=== PATIENT | female | born 1950 | race Caucasian/White ===

== ENCOUNTER → 2016-06-16 | Outpatient (CLI) | payer BC, MEDICARE ==
[2016-06-16 13:26] LABS: Basophils % (A) 1 %; CH 31.8; CHCM 33.2; Eosinophils # (A) 0.1 k/uL (0-0.7); Eosinophils % (A) 1 %; HCT 42.2 % (34.0-46.0); HDW 2.38; HGB 14.2 gm/dL (11.4-16.0); Luc # (Auto) 0.09; Luc % (Auto) 2; Lymphocytes # (A) 1.4 k/uL (1.0-4.8); Lymphocytes % (A) 27 %; MCH 32.3 pg (25.0-35.0); MCHC 33.6 g/dL (31.0-37.0); MCV 96.1 fL (80.0-100.0); Mean Platelet Volume 6.6; Monocytes # (A) 0.3 k/uL (0-1.0); Monocytes % (A) 6 %; Neutrophils # (A) 3.1 k/uL (1.3-7.7); Neutrophils % (A) 62 %; RBC 4.38 m/uL (3.80-5.40); RDW 12.9 % (11.5-15.5); WBC (Perox) 5.09
[2016-06-16 13:47] LABS: ALT 14 U/L (9-52); AST 19 U/L (14-36); Alkaline Phosphatase 75 U/L (38-126); Anion Gap 10 mmol/L; Blood Urea Nitrogen 6 mg/dL (7-17); Calcium 9.6 mg/dL (8.4-10.2); Carbon Dioxide 30 mmol/L (22-30); Chloride 97 mmol/L (98-107); Glucose 88 mg/dL (74-99); Non-African American GFR(MDRD) >60 (>60 ml/min/1.73 sqM); Potassium 4.9 mmol/L (3.5-5.1); Sodium 137 mmol/L (137-145); Total Bilirubin 0.7 mg/dL (0.2-1.3)
== END | disposition home or self-care (01) ==
LOC: LABWHC1 12:55
PROVIDERS: ATTEND Family Medicine
DX: G40.802 Other epilepsy, not intractable, without status epilepticus (principal); Z51.81 Encounter for therapeutic drug level monitoring
CPT/HCPCS: 36415; 80053; 85025

== ENCOUNTER → 2017-06-07 | Outpatient (CLI) | payer BC, MEDICARE ==
[2017-06-07 10:53] LABS: Basophils # (A) 0.1 k/uL (0-0.2); Basophils % (A) 1 %; Eosinophils # (A) 0.1 k/uL (0-0.7); Eosinophils % (A) 2 %; HCT 42.2 % (34.0-46.0); Lymphocytes # (A) 1.2 k/uL (1.0-4.8); Lymphocytes % (A) 25 %; MCH 30.4 pg (25.0-35.0); MCHC 33.2 g/dL (31.0-37.0); MCV 91.5 fL (80.0-100.0); Mean Platelet Volume 6.8; Monocytes # (A) 0.3 k/uL (0-1.0); Monocytes % (A) 7 %; Neutrophils # (A) 3.1 k/uL (1.3-7.7); Neutrophils % (A) 62 %; Platelet Count 364 k/uL (150-450); RBC 4.62 m/uL (3.80-5.40); RDW 12.9 % (11.5-15.5)
[2017-06-07 11:15] LABS: Albumin 4.7 g/dL (3.5-5.0); Calcium 10.1 mg/dL (8.4-10.2); Potassium 4.8 mmol/L (3.5-5.1); Total Bilirubin 0.7 mg/dL (0.2-1.3); Total Protein 8.2 g/dL (6.3-8.2)
[2017-06-07 16:48] LABS: Vitamin D 25 Hydroxy 16.3 ng/mL (30.0-100.0)
[2017-06-07 19:02] LABS: Hepatitis C IgG Antibody Non-Reactive (Non-Reactive)
== END | disposition home or self-care (01) ==
LOC: LABWHC1 10:02
PROVIDERS: ATTEND Family Medicine
DX: Z00.00 Encounter for general adult medical examination without abnormal findings (principal); E78.2 Mixed hyperlipidemia; I69.159 Hemiplegia and hemiparesis following nontraumatic intracerebral hemorrhage affecting unspecified side; Z68.27 Body mass index [BMI] 27.0-27.9, adult
CPT/HCPCS: 36415; 80053; 80061; 82306; 84443; 85025; 86803

== ENCOUNTER → 2017-07-03 | Outpatient (CLI) | payer BC, MEDICARE ==
--- NOTE | 2017-07-03 08:56 | BD ---
EXAMINATION TYPE: MG DEXA axial skeleton. DATE OF EXAM: 07/03/2017 COMPARISON: CLINICAL HISTORY: screening, post menopausal female. Height: 5'2 Weight: 148 FRAX RISK QUESTIONS: Alcohol (3 or more units per day): no Family History (Parent hip fracture): no Glucocorticoids (More than 3mos): no (Ex: prednisone, prednisolone, methylprednisolone, dexamethasone, and hydrocortisone). History of Fracture in Adulthood: yes Secondary Osteoporosis: 1. Type 1 Diabetes: no 2. Hyperthyroidism: no 3. Menopause before 45: yes 4. Malnutrition: no 5. Chronic liver disease: no Rheumatoid Arthritis: no Current Tobacco Use: RISK FACTORS HISTORY OF: Active: y Diet low in dairy products/other sources of calcium: y Postmenopausal woman: y Frequent falls: y Poor Health: y MEDICATIONS: Additional Medications: seizures, anxiety, psychotic Additional History: EXAM MEASUREMENTS: Bone mineral densitometry was performed using the [employer] System. Bone mineral density as measured about the Lumbar spine is: ----- L1-L4(G/cm2): 0.958 T Score Values are as follows: ----- L2: -2.3 ----- L3: -2.2 ----- L4: -1.7 ----- L1-L4: -1.9 Bone mineral density about the R hip (g/cm2): 0.633 Bone mineral density about the L hip (g/cm2): 0.637 T Score values are as follows: -----R Neck: -2.9 -----L Neck: -2.9 -----R Total: -3.3 -----L Total: -2.7 IMPRESSION: Osteoporosis (T Score less than -2.5) at femoral neck level in both hips. There is increased fracture risk and therapy is usually indicated based on age. Re-Screen 1-2 years. NOTE: T-SCORE=SD OF THE YOUNG ADULT MEAN.
--- NOTE | 2017-07-04 08:58 | MM ---
Reason for exam: screening (asymptomatic). Last mammogram was performed 5 years and 10 months ago. History: Family history of breast cancer in mother. Physical Findings: A clinical breast exam by your physician is recommended on an annual basis and results should be correlated with mammographic findings. MG 3D Screening Mammo W/Cad Bilateral CC and MLO view(s) were taken. XCCL view(s) were taken of the left breast. Prior study comparison: September 01, 2011, bilateral digital screening mammo w/CAD. December 16, 1999, bilateral screening mammogram. The breast tissue is heterogeneously dense. This may lower the sensitivity of mammography. Left sided pacemaker generator. Stable bilateral global asymmetries. No significant changes when compared with prior studies. ASSESSMENT: Negative, BI-RAD 1 RECOMMENDATION: Routine screening mammogram of both breasts in 1 year.
== END | disposition home or self-care (01) ==
LOC: RADMAMWWP 07:00
PROVIDERS: ATTEND Family Medicine
DX: Z12.31 Encounter for screening mammogram for malignant neoplasm of breast (principal); M81.0 Age-related osteoporosis without current pathological fracture
CPT/HCPCS: 77063; 77067; 77080

== ENCOUNTER 2018-11-12 23:59 | Emergency (ER) | payer BC, MEDICARE ==
[2018-11-13 00:07] VITALS: TEMP 97.9
[2018-11-13] MEDS ORDERED: MORPHINE SULFATE 4 MG/ML SYRINGE IV STA (00:20)
[2018-11-13] MEDS ORDERED: ETOMIDATE 2 MG/ML 10 ML VIAL IVP STA (01:03)
--- NOTE | 2018-11-13 01:14 | XR ---
EXAM: XR Right Shoulder Complete, 2 or More Views CLINICAL HISTORY: ITS.REASON XR Reason: fall TECHNIQUE: Two or more views of the right shoulder. COMPARISON: No relevant prior studies available. FINDINGS: Bones/joints: Anterior dislocation of the humeral head in relation to the glenoid. Comminution along the posterior aspect of the glenoid with subcentimeter avulsion fracture fragments noted. Soft tissues: No radiopaque foreign body. IMPRESSION: 1. Anterior dislocation of the humeral head in relation to the glenoid. 2. Comminution along the posterior aspect of the glenoid with subcentimeter avulsion fracture fragments noted. The donor site is not clearly evident on this exam.
--- NOTE | 2018-11-13 01:41 | CT ---
EXAM: CT Head Without Intravenous Contrast CLINICAL HISTORY: ITS.REASON CT Reason: fall TECHNIQUE: Axial computed tomography images of the head/brain without intravenous contrast. DLP is 1420.9 mGy-cm. This CT exam was performed using one or more of the following dose reduction techniques: automated exposure control, adjustment of the mA and/or kV according to patient size, and/or use of iterative reconstruction technique. COMPARISON: 09/22/2009 FINDINGS: Brain: Cerebral atrophy is fairly similar in appearance to the previous exam. No hemorrhage. No significant white matter disease. Ventricles: Unremarkable. No ventriculomegaly. Bones/joints: There is evidence of a left temporal craniotomy. There are stable claudia hole's involving the left temporoparietal region. No evidence for skull fracture. Soft tissues: No significant overlying soft tissue abnormality identified. Sinuses: Unremarkable as visualized. No acute sinusitis. Mastoid air cells: Unremarkable as visualized. No mastoid effusion. IMPRESSION: No acute intracranial process identified. No significant interval change from the previous examination.. EXAM: CT Cervical Spine Without Intravenous Contrast CLINICAL HISTORY: ITS.REASON CT Reason: fall TECHNIQUE: Axial computed tomography images of the cervical spine without intravenous contrast. DLP is 1420.9 mGy-cm. This CT exam was performed using one or more of the following dose reduction techniques: automated exposure control, adjustment of the mA and/or kV according to patient size, and/or use of iterative reconstruction technique. COMPARISON: 09/22/2009 FINDINGS: Limitations: There is beam hardening artifact from dental hardware involving the superior to the cervical region. Vertebrae: There are stable hypertrophic changes with disc spondylosis and marginal spurring at multiple levels. Facet hypertrophic changes are noted. No acute fracture. Discs/spinal canal/neural foramina: No acute findings. No spinal canal stenosis. Soft tissues: Unremarkable. Lung apices: Visualized lung apices demonstrate no evidence for significant acute traumatic abnormality with paraseptal emphysematous changes identified. Tubes, lines and devices: A stimulator lead is noted in the left carotid region with the lead extending inferiorly to the left anterior chest region. This is similar to the previous exam. IMPRESSION: No acute osseous traumatic injury or significant abnormal alignment identified. Underlying multilevel degenerative changes are incidentally noted.
--- NOTE | 2018-11-13 03:15 | ED ---
Fall HPI - General Chief Complaint: Fall Stated Complaint: fall,R arm pain Time Seen by Provider: 11/13/18 00:04 Source: patient, EMS Mode of arrival: EMS - History of Present Illness Initial Comments: This patient is a 68-year-old woman who presents after she had a fall. The patient states she was trying to walk when she tripped over her feet and fell landing on her right arm as well as the right side of her neck and head. Complains of severe right shoulder pain and also having a little bit of aching headache and neck pain. The patient denies any weakness or numbness of the extremity. She states that it does hurt too bad to attempt to move however. No loss of consciousness. MD Complaint: fall Onset/Timin -: hour(s) Fall From: standing When Fall Occurred: [address] Fall Occurred: home Loss of Consciousness: none Prolonged Down Time?: no Symptoms Prior to Fall: none Location: head, neck Location - Extremities: Right: Shoulder Severity: severe Quality: aching Context: tripped/slipped - Related Data Home Medications Medication Instructions Recorded Confirmed Citalopram Hydrobromide [CeleXA] 20 mg PO QAM 03/21/15 02/02/16 Docusate [Colace] 100 mg PO BID 03/21/15 02/01/16 LORazepam [Ativan] 1 mg PO BID PRN 03/21/15 02/02/16 Ziprasidone [Geodon] 60 mg PO QAM 03/21/15 02/02/16 Ziprasidone [Geodon] 80 mg PO HS 03/21/15 02/01/16 Atorvastatin [Lipitor] 20 mg PO QAM 11/16/15 02/02/16 Acetaminophen [Tylenol Arthritis] 1,300 mg PO DIRECTED PRN 02/01/16 02/02/16 Carbidopa-Levodopa 25-100 mg 2 tab PO TID 02/01/16 02/01/16 [Sinemet 25-100] Clobazam [Onfi] 20 mg PO BID 02/01/16 02/01/16 Ibuprofen [Motrin] 600 mg PO DIRECTED PRN 02/01/16 02/02/16 lamoTRIgine [LaMICtal] 200 mg PO QAM 02/01/16 02/01/16 lamoTRIgine [LaMICtal] 300 mg PO HS 02/01/16 02/02/16 levETIRAcetam [Keppra Xr] 2,000 mg PO HS 02/01/16 02/01/16 Previous Rx's Medication Instructions Recorded Acetaminophen-Codeine 300-30mg 1 tab PO Q6H PRN #40 tablet 02/03/16 [Tylenol #3] Aspirin 325 mg PO DAILY #30 tab 02/03/16 HYDROcodone/APAP 5-325MG [[place] 1 tab PO Q6HR PRN #15 tab 01/06/17 5-325] Allergies Allergy/AdvReac Type Severity Reaction Status Date / Time No Known Allergies Allergy Verified 01/06/17 19:19 Review of Systems ROS Statement: Those systems with pertinent positive or pertinent negative responses have been documented in the HPI. ROS Other: All systems not noted in ROS Statement are negative. Constitutional: Denies: fever, chills, weakness Eyes: Denies: eye pain, vision change ENT: Denies: ear pain, epistaxis Respiratory: Denies: cough, dyspnea Cardiovascular: Denies: chest pain, palpitations, syncope Gastrointestinal: Denies: abdominal pain, vomiting Musculoskeletal: Reports: arthralgia (Right shoulder). 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 HX OF SEIZURES WITH FALLS . , LAST SEIZURE 01/25/16 WITH FALL AND LEFT ANKLE FX., WEARING A BOOT LEFT FOOT. , USES WALKER WITH WHEELS, STATES LEFT LEG BRUISED. , WEAKNESS LEFT SIDE. , STATES OCCASIONALLY NEEDS TO YAWN TO CATCH HER BREATH ., STATES NO MRI'S DUE TO VAGUS NERVE STIMULATOR IMPLANT. History of Any Multi-Drug Resistant Organisms: None Reported Additional Past Surgical History / Comment(s): VAGUS NERVE STIMULATOR LEFT CHEST (BATTERY ), LEFT HIPPOCAMPUS REMOVED. Past Anesthesia/Blood Transfusion Reactions: No Reported Reaction Additional Past Anesthesia/Blood Transfusion Reaction / Comment(s): HX OF BLOOD TRANSFUSION - NO REACTION Past Psychological History: Anxiety, Depression, Schizoaffective Disorder Smoking Status: Former smoker Past Alcohol Use History: None Reported Past Drug Use History: None Reported - Past Family History Mother Family Medical History: Cancer Father Family Medical History: Cancer General Exam Limitations: no limitations General appearance: alert, in no apparent distress Head exam: Present: atraumatic, normocephalic Eye exam: Present: normal appearance. Absent: scleral icterus, conjunctival injection ENT exam: Present: normal oropharynx Neck exam: Present: normal inspection, tenderness (Right paraspinal muscles), other (Cervical collar) Respiratory exam: Present: normal lung sounds bilaterally. Absent: respiratory distress, wheezes, rales, rhonchi, stridor, chest wall tenderness Cardiovascular Exam: Present: regular rate, normal rhythm, normal heart sounds. Absent: systolic murmur, diastolic murmur, rubs, gallop GI/Abdominal exam: Present: soft. Absent: distended, tenderness, guarding, rebound, rigid, mass Extremities exam: Present: tenderness, normal capillary refill, other (Patient has apparent right shoulder dislocation. No obvious bony deformity. She is not able to tolerate range of motion exam of the right shoulder. The remainder of the right arm appears without bony injury.). Absent: full ROM Right Shoulder Exam: Present: tenderness, dislocation. Absent: full ROM, abrasion, deformity, erythema, tenderness over AC joint Upper Arm exam: Present: normal inspection Elbow exam: Present: normal inspection, full ROM. Absent: tenderness, swelling, abrasion, laceration, ecchymosis, deformity, crepitus, dislocation Forearm Wrist exam: Present: normal inspection, full ROM. Absent: tenderness, swelling, abrasion, laceration, ecchymosis, deformity, crepitus, dislocation Hand Wrist exam: Present: normal inspection, full ROM. Absent: tenderness, swelling, abrasion, laceration, ecchymosis, deformity, crepitus, dislocation Neuro motor exam: Present: wrist extension intact, thumb opposition intact Vascular: Present: normal capillary refill. Absent: vascular compromise Back exam: Present: normal inspection. Absent: CVA tenderness (R), CVA tenderness (L) Neurological exam: Present: alert. Absent: motor sensory deficit Skin exam: Present: warm, dry, intact, normal color. 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: Identity, Site, Procedure, Consent Site: R shoulder Site Marked: Yes Site Verified With Patient/Guardian: Yes Final Confirmation: Procedure, Site, Radiographs, Confirmed w/Provider - Orthopedic Joint Reduction Joint #1 Consent Obtained: written consent Side: right Joint Reduction Location: shoulder Analgesia: procedural sedation Shoulder Technique Used (if applicable): external rotation Post-Reduction Neuro Exam: intact Post-Reduction Vascular Exam: intact Post Reduction X-Ray Obtained: Yes Post Reduction X-Ray Results: reduced Patient Tolerated Procedure: well - Procedural Sedation Indications: fracture/dislocation reduction ASA Class: II Mallampati Airway Score: 2 Preparation: panel monitor applied, pulse oximeter, capnometry used, supplemental O2 applied, suction/airway equipment at bedside, IV secured IV Etomidate Dose (mgs): 10 Complications: none Patient Tolerated Procedure: well, no complications Disposition Clinical Impression: Fall, Shoulder dislocation Disposition: HOME SELF-CARE Condition: Good Instructions (If sedation given, give patient instructions): Shoulder Dislocation (ED), Fall Prevention for Older Adults (ED), Moderate Sedation (ED) Is patient prescribed a controlled substance at d/c from ED?: No Referrals: Javier Looney MD [Primary Care Provider] - 1-2 days Andrew Coppola MD [STAFF PHYSICIAN] - 1-2 days
[2018-11-13 03:18] VITALS: BP 147/76; PULSE 96; RESP 16
--- NOTE | 2018-11-13 03:39 | XR ---
EXAM: XR Right Shoulder, 1 View CLINICAL HISTORY: ITS.REASON XR Reason: postreduction TECHNIQUE: One view of the right shoulder. COMPARISON: 00:53 hours FINDINGS: Limitations: Single projection image demonstrates interval reduction in the frontal projection. There is a suggestion of cortical defect involving the greater tubercle. Detailed evaluation is limited. Bones/joints: Unremarkable. No acute fracture. No dislocation. Soft tissues: Unremarkable. IMPRESSION: Single projection image demonstrates interval right shoulder reduction in the frontal projection.
== END 2018-11-13 03:30 | disposition home or self-care (01) ==
LOC: EC 23:59
DX: S43.004A Unspecified dislocation of right shoulder joint, initial encounter (principal); M54.2 Cervicalgia; R51 Headache; G40.909 Epilepsy, unspecified, not intractable, without status epilepticus; F32.9 Major depressive disorder, single episode, unspecified; F41.9 Anxiety disorder, unspecified; F25.9 Schizoaffective disorder, unspecified; Z87.891 Personal history of nicotine dependence; Z79.899 Other long term (current) drug therapy; Z97.8 Presence of other specified devices; W01.0XXA Fall on same level from slipping, tripping and stumbling without subsequent striking against object, initial encounter; Y93.89 Activity, other specified; Y92.009 Unspecified place in unspecified non-institutional (private) residence as the place of occurrence of the external cause
CPT/HCPCS: 73020; 72125; 70450; 99284; 23650; 96374; J2270

== ENCOUNTER 2018-11-21 19:28 | Emergency (ER) | payer BC, MEDICARE ==
[2018-11-21 19:35] VITALS: TEMP 98.3
[2018-11-21] MEDS ORDERED: fentaNYL (PF) 50 MCG/ML 2 ML AMP IVP STA (20:47)
--- NOTE | 2018-11-21 20:59 | ED ---
General Adult HPI - General Chief complaint: Extremity Injury, Upper Stated complaint: Dislocated shoulder Time Seen by Provider: 11/21/18 20:11 Source: patient Mode of arrival: wheelchair Limitations: physical limitation - History of Present Illness Initial comments: Dictation was produced using [employer] dictation software. please excuse any grammatical, word or spelling errors. Chief Complaint: 68-year-old female past medical history of seizure disorder and right shoulder dislocations presents with right shoulder pain and seizure. History of Present Illness: Patient is 68-year-old female she has multiple comorbidities. She is a history of seizure disorder. She has a neurologist at [facility] she is on seizure medications. Patient states she reached over she felt like she was given have a seizure. She then woke up with significant right shoulder pain. Patient dislocated this shoulder in the past. Patient is here with a family member. En route to our emergency department patient had another observed seizure. Patient is compliant with her medications. Family members concerned the patient hit her head. The ROS documented in this emergency department record has been reviewed and confirmed by me. Those systems with pertinent positive or negative responses have been documented in the HPI. All other systems are other negative and/or noncontributory. PHYSICAL EXAM: General Impression: Alert and oriented x3, acute distress secondary to pain HEENT: Normocephalic atraumatic, extra-ocular movements intact, pupils equal and reactive to light bilaterally, mucous membranes moist. Cardiovascular: Heart regular rate and rhythm, S1&S2 audible, no murmurs, rubs or gallops Chest: Lungs clear to auscultation bilaterally, no rhonchi, no wheeze, no rales Abdomen: Bowel sounds present, abdomen soft, non-tender, non-distended, no organomegaly Musculoskeletal: Pulses present and equal in all extremities, no peripheral edema, gross deformity to the right shoulder Motor: no focal deficits noted Neurological: CN II-XII grossly intact, no focal motor or sensory deficits noted Skin: Intact with no visualized rashes ED course: 68-year-old female with concern of right shoulder dislocation and seizure. Vital signs upon arrival are within acceptable limits.Laboratory evaluation obtained. Laboratory evaluation is unremarkable. Patient does have lactic acidosis of 3.7. Patient has history of seizures. She has close relationship with a neurologist from [address] She had recent medication adjustments. Shoulder x-ray was obtained showing anterior shoulder dislocation. Procedural sedation was used and shoulder was reduced to anatomic position. Patient was complaining of wrist pain. Wrist x-ray showed old injury. Her wrist was immobilized in a sling. C-spine CT and head CT were unremarkable. Patient observed in emergency department given fluids. Patient did not have any recurrent seizures. Patient's family member will contact neurologist first thing in the morning to have medications adjusted. Patient given IV analgesics. Patient's also given a starter pack. Family feels consult while taking patient home. Patient placed in a sling. EKG interpretation: Ventricular rate 82, sinus rhythm,. Interval 142, care 74, QTc 457. No GA prolongation, no QTC prolongation, no ST or T-wave changes noted. Overall, this EKG is unremarkable - Related Data Home Medications Medication Instructions Recorded Confirmed Citalopram Hydrobromide [CeleXA] 20 mg PO QAM 03/21/15 11/21/18 LORazepam [Ativan] 1 mg PO BID PRN 03/21/15 11/21/18 Ziprasidone [Geodon] 80 mg PO BID 03/21/15 11/21/18 Atorvastatin [Lipitor] 20 mg PO QAM 11/16/15 11/21/18 Carbidopa-Levodopa 25-100 mg 2 tab PO TID 02/01/16 11/21/18 [Sinemet 25-100] Clobazam [Onfi] 20 mg PO HS 02/01/16 11/21/18 lamoTRIgine [LaMICtal] 300 mg PO BID 02/01/16 11/21/18 Alendronate Sodium [Fosamax] 70 mg PO SA 11/21/18 11/21/18 Zonisamide [Zonegran] 200 mg PO HS 11/21/18 11/21/18 Allergies Allergy/AdvReac Type Severity Reaction Status Date / Time No Known Allergies Allergy Verified 11/21/18 20:32 Review of Systems ROS Statement: Those systems with pertinent positive or pertinent negative responses have been documented in the HPI. ROS Other: All systems not noted in ROS Statement are negative. 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 HX OF SEIZURES WITH FALLS . , LAST SEIZURE 01/25/16 WITH FALL AND LEFT ANKLE FX., WEARING A BOOT LEFT FOOT. , USES WALKER WITH WHEELS, STATES LEFT LEG BRUISED. , WEAKNESS LEFT SIDE. , STATES OCCASIONALLY NEEDS TO YAWN TO CATCH HER BREATH ., STATES NO MRI'S DUE TO VAGUS NERVE STIMULATOR IMPLANT. History of Any Multi-Drug Resistant Organisms: None Reported Additional Past Surgical History / Comment(s): VAGUS NERVE STIMULATOR LEFT CHEST (BATTERY ), LEFT HIPPOCAMPUS REMOVED. Past Anesthesia/Blood Transfusion Reactions: No Reported Reaction Additional Past Anesthesia/Blood Transfusion Reaction / Comment(s): HX OF BLOOD TRANSFUSION - NO REACTION Past Psychological History: Anxiety, Depression, Schizoaffective Disorder Smoking Status: Former smoker Past Alcohol Use History: None Reported Past Drug Use History: None Reported - Past Family History Mother Family Medical History: Cancer Father Family Medical History: Cancer General Exam Limitations: physical limitation Course Vital Signs 11/21/18 11/21/18 11/21/18 19:29 21:40 21:45 Temperature 98.3 F Pulse Rate 85 87 83 Respiratory 20 20 16 Rate Blood Pressure 149/87 152/86 142/86 O2 Sat by Pulse 98 98 92 L Oximetry 11/21/18 21:55 Temperature Pulse Rate 78 Respiratory 20 Rate Blood Pressure 153/89 O2 Sat by Pulse 96 Oximetry Medical Decision Making - Lab Data Result diagrams: 11/21/18 21:00 11/21/18 21:00 Lab Results 11/21/18 11/21/18 11/21/18 Range/Units 21:00 21:00 21:00 WBC 7.7 (3.8-10.6) k/uL RBC 4.42 (3.80-5.40) m/uL Hgb 14.2 (11.4-16.0) gm/dL Hct 41.8 (34.0-46.0) % MCV 94.6 (80.0-100.0) fL MCH 32.1 (25.0-35.0) pg MCHC 33.9 (31.0-37.0) g/dL RDW 14.6 (11.5-15.5) % Plt Count 323 (150-450) k/uL Neutrophils % 75 % Lymphocytes % 15 % Monocytes % 6 % Eosinophils % 1 % Basophils % 1 % Neutrophils # 5.7 (1.3-7.7) k/uL Lymphocytes # 1.2 (1.0-4.8) k/uL Monocytes # 0.5 (0-1.0) k/uL Eosinophils # 0.1 (0-0.7) k/uL Basophils # 0.1 (0-0.2) k/uL Sodium 140 (137-145) mmol/L Potassium 4.1 (3.5-5.1) mmol/L Chloride 102 (98-107) mmol/L Carbon Dioxide 24 (22-30) mmol/L Anion Gap 14 mmol/L BUN 13 (7-17) mg/dL Creatinine 0.93 (0.52-1.04) mg/dL Est GFR (CKD-EPI)AfAm 74 (>60 ml/min/1.73 sqM) Est GFR (CKD-EPI)NonAf 64 (>60 ml/min/1.73 sqM) Glucose 130 H (74-99) mg/dL Plasma Lactic Acid Roman 3.7 H* (0.7-2.0) mmol/L Calcium 10.1 (8.4-10.2) mg/dL Magnesium 1.6 (1.6-2.3) mg/dL Total Bilirubin 0.6 (0.2-1.3) mg/dL AST 22 (14-36) U/L ALT 7 L (9-52) U/L Alkaline Phosphatase 87 (38-126) U/L Total Protein 8.2 (6.3-8.2) g/dL Albumin 4.7 (3.5-5.0) g/dL Disposition Clinical Impression: Seizure, Shoulder dislocation Disposition: HOME SELF-CARE Condition: Good Instructions (If sedation given, give patient instructions): Shoulder Dislocation (ED), Recurrent Seizures in Adults (ED) Is patient prescribed a controlled substance at d/c from ED?: Yes If prescribed controlled substance>3 days was MAPS reviewed?: Prescribed <3 Days Referrals: Javier Looney MD [Primary Care Provider] - 1-2 days Time of Disposition: 23:26
[2018-11-21] MEDS ORDERED: PROPOFOL 10 MG/ML 20 ML VIAL IV ONE (21:16)
[2018-11-21 21:19] LABS: Basophils # (A) 0.1 k/uL (0-0.2); Basophils % (A) 1 %; Eosinophils # (A) 0.1 k/uL (0-0.7); Eosinophils % (A) 1 %; HCT 41.8 % (34.0-46.0); HGB 14.2 gm/dL (11.4-16.0); Lymphocytes # (A) 1.2 k/uL (1.0-4.8); Lymphocytes % (A) 15 %; MCH 32.1 pg (25.0-35.0); MCHC 33.9 g/dL (31.0-37.0); MCV 94.6 fL (80.0-100.0); Mean Platelet Volume 7.2; Monocytes # (A) 0.5 k/uL (0-1.0); Monocytes % (A) 6 %; Neutrophils # (A) 5.7 k/uL (1.3-7.7); Neutrophils % (A) 75 %; Platelet Count 323 k/uL (150-450); RBC 4.42 m/uL (3.80-5.40); RDW 14.6 % (11.5-15.5); WBC 7.7 k/uL (3.8-10.6)
[2018-11-21 21:21] LABS: Albumin 4.7 g/dL (3.5-5.0); Calcium 10.1 mg/dL (8.4-10.2); Magnesium 1.6 mg/dL (1.6-2.3); Potassium 4.1 mmol/L (3.5-5.1); Total Bilirubin 0.6 mg/dL (0.2-1.3); Total Protein 8.2 g/dL (6.3-8.2)
--- NOTE | 2018-11-21 21:21 | XR ---
EXAMINATION TYPE: XR shoulder complete RT DATE OF EXAM: 11/21/2018 COMPARISON: 11/13/2018 HISTORY: Pain TECHNIQUE: 3 views FINDINGS: There is anterior dislocation of the humeral head. I see no fracture line. There is some de formity of the humeral head greater tuberosity consistent with recurrent dislocations. IMPRESSION: Anterior dislocation of the humeral head.
--- NOTE | 2018-11-21 22:55 | XR ---
EXAMINATION TYPE: XR shoulder complete RT DATE OF EXAM: 11/21/2018 COMPARISON: Today HISTORY: Post reduction TECHNIQUE: 3 views FINDINGS: There is anatomic reduction of the humeral head. There is some deformity of the greater tub erosity consistent with recurrent dislocation. I see no fracture line. IMPRESSION: Anatomic reduction.
--- NOTE | 2018-11-21 22:56 | XR ---
EXAMINATION TYPE: XR wrist complete RT DATE OF EXAM: 11/21/2018 COMPARISON: NONE HISTORY: Wrist pain TECHNIQUE: 5 views FINDINGS: Radiocarpal joint is anatomic. There is mild deformity of the distal radius consistent with a fracture. I do not see a definite acute fracture line. There is cystic change in the ulnar styloid process consistent with old trauma. The carpal bones appear intact. IMPRESSION: There is evidence of old injury of the distal radius. No definite acute fracture.
--- NOTE | 2018-11-21 23:15 | CT ---
EXAMINATION TYPE: CT brain tevin levin DATE OF EXAM: 11/21/2018 COMPARISON: 11/13/2018 HISTORY: Seizure, fall CT DLP: 1354.10 mGycm Automated exposure control for dose reduction was used. TECHNIQUE: CT scan of the head and cervical spine are performed without contrast. FINDINGS: There is cerebral cortical atrophy. There is no mass effect nor midline shift. There is n o sign of intracranial hemorrhage. Calvarium is intact. 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 There is multilevel spondylotic changes in the cervical spine. There is slight anterior subluxation o f C3 in relation to C4. There is degenerative disc space narrowing from C4 to C7. Facet joints are in tact. Skull base is intact. There is no evidence of a fracture. IMPRESSION: Cerebral atrophy. No acute intracranial abnormality. No change. Spondylotic changes in the cervical spine. No fracture. No change.
[2018-11-21] MEDS ORDERED: MORPHINE SULFATE 2 MG/ML SYRINGE IVP STA (23:23)
[2018-11-21] MEDS ORDERED: traMADol 50 MG STARTER PACK 3 TAB BTL PO STA (23:26)
[2018-11-21 23:54] VITALS: BP 145/76; PULSE 93; RESP 18
--- NOTE | 2018-11-21 23:54 | ED ---
Medical Decision Making - Lab Data Result diagrams: 11/21/18 21:00 11/21/18 21:00 Lab Results 11/21/18 11/21/18 11/21/18 Range/Units 21:00 21:00 21:00 WBC 7.7 (3.8-10.6) k/uL RBC 4.42 (3.80-5.40) m/uL Hgb 14.2 (11.4-16.0) gm/dL Hct 41.8 (34.0-46.0) % MCV 94.6 (80.0-100.0) fL MCH 32.1 (25.0-35.0) pg MCHC 33.9 (31.0-37.0) g/dL RDW 14.6 (11.5-15.5) % Plt Count 323 (150-450) k/uL Neutrophils % 75 % Lymphocytes % 15 % Monocytes % 6 % Eosinophils % 1 % Basophils % 1 % Neutrophils # 5.7 (1.3-7.7) k/uL Lymphocytes # 1.2 (1.0-4.8) k/uL Monocytes # 0.5 (0-1.0) k/uL Eosinophils # 0.1 (0-0.7) k/uL Basophils # 0.1 (0-0.2) k/uL Sodium 140 (137-145) mmol/L Potassium 4.1 (3.5-5.1) mmol/L Chloride 102 (98-107) mmol/L Carbon Dioxide 24 (22-30) mmol/L Anion Gap 14 mmol/L BUN 13 (7-17) mg/dL Creatinine 0.93 (0.52-1.04) mg/dL Est GFR (CKD-EPI)AfAm 74 (>60 ml/min/1.73 sqM) Est GFR (CKD-EPI)NonAf 64 (>60 ml/min/1.73 sqM) Glucose 130 H (74-99) mg/dL Plasma Lactic Acid Roman 3.7 H* (0.7-2.0) mmol/L Calcium 10.1 (8.4-10.2) mg/dL Magnesium 1.6 (1.6-2.3) mg/dL Total Bilirubin 0.6 (0.2-1.3) mg/dL AST 22 (14-36) U/L ALT 7 L (9-52) U/L Alkaline Phosphatase 87 (38-126) U/L Total Protein 8.2 (6.3-8.2) g/dL Albumin 4.7 (3.5-5.0) g/dL Disposition Clinical Impression: Seizure, Shoulder dislocation Disposition: HOME SELF-CARE Condition: Good Instructions (If sedation given, give patient instructions): Shoulder Di slocation (ED), Recurrent Seizures in Adults (ED) Is patient prescribed a controlled substance at d/c from ED?: No Referrals: Javier Looney MD [Primary Care Provider] - 1-2 days Time of Disposition: 23:54 Procedures - [place] Protocol (Time Out) Procedure Performed:: reductrion of right shoulder Performing Provider: Kalin Patterson Nurse: Myra Melissa Respiratory Therapist: Arcelia Thornton Patient Identification (2 identifiers required): Chart, Verbal, Arm Band, Name Patient/Legal Digital Art Director has Confirmed: Identity Site: right shoulder Site Marked: No Site Verified With Patient/Guardian: Yes Final Confirmation: Procedure - Orthopedic Joint Reduction Joint #1 Consent Obtained: verbal consent, written consent Side: right Joint Reduction Location: shoulder Shoulder Technique Used (if applicable): other Post-Reduction Neuro Exam: intact Post-Reduction Vascular Exam: intact Post Reduction X-Ray Obtained: Yes Post Reduction X-Ray Results: reduced Splint Applied: Yes Patient Tolerated Procedure: well - Procedural Sedation Procedural Sedation Start Time: 21:40 Procedural Sedation Stop Time: 21:50 Indications: fracture/dislocation reduction ASA Class: II Mallampati Airway Score: 1 Preparation: parole director applied, pulse oximeter, capnometry used, supplemental O2 applied IV Propofol Dose (mgs): 100 Complications: hypoventilation Interventions: oxygen applied, assist by BVM Patient Tolerated Procedure: well
== END 2018-11-21 23:53 | disposition home or self-care (01) ==
LOC: EC 19:28 → SUPCPDRO 19:28 → EC 23:53
DX: S43.004A Unspecified dislocation of right shoulder joint, initial encounter (principal); S69.91XA Unspecified injury of right wrist, hand and finger(s), initial encounter; G40.909 Epilepsy, unspecified, not intractable, without status epilepticus; F41.9 Anxiety disorder, unspecified; F25.1 Schizoaffective disorder, depressive type; Z87.891 Personal history of nicotine dependence; E87.2 Acidosis; Z79.899 Other long term (current) drug therapy
CPT/HCPCS: 36415; 93005; 80053; 83605; 83735; 85025; 73030; 73110; 72125; 70450; 99284; 23650; 99152; 96374; 96375; J3010; J2270; J2704

== ENCOUNTER 2019-03-30 00:25 | Emergency (ER) | payer BC, MEDICARE ==
[2019-03-30 00:35] VITALS: TEMP 97.9
[2019-03-30] MEDS ORDERED: MORPHINE SULFATE 4 MG/ML SYRINGE IM STA (01:06)
--- NOTE | 2019-03-30 01:38 | XR ---
EXAMINATION TYPE: XR elbow limited RT DATE OF EXAM: 03/30/2019 COMPARISON: NONE HISTORY: Arm pain. Fall. TECHNIQUE: 2 views FINDINGS: Elbow joint spaces appear normal. I see no fracture nor dislocation. There is no sign of catherine int effusion. Exam is limited by overlying artifact. IMPRESSION: Negative limited right elbow exam. No fracture seen.
--- NOTE | 2019-03-30 01:39 | XR ---
EXAMINATION TYPE: XR shoulder limited RT DATE OF EXAM: 03/30/2019 COMPARISON: 11/21/2018 HISTORY: Fall. Injury. TECHNIQUE: 2 views FINDINGS: There is anterior dislocation of the glenohumeral joint. I see no fracture. There is osteop enia. IMPRESSION: Anterior dislocation. No fracture seen.
[2019-03-30] MEDS ORDERED: ETOMIDATE 2 MG/ML 10 ML VIAL IVP STA (02:09)
--- NOTE | 2019-03-30 03:20 | XR ---
EXAMINATION TYPE: XR shoulder limited RT DATE OF EXAM: 03/30/2019 COMPARISON: Today HISTORY: Post reduction TECHNIQUE: Single view FINDINGS: There is anatomic reduction of the glenohumeral joint. I see no fracture. IMPRESSION: Anatomic reduction.
--- NOTE | 2019-03-30 03:24 | ED ---
Upper Extremity HPI - General Source: patient, family Mode of arrival: ambulatory Limitations: no limitations <Carlyn Robert - Last Filed: 03/30/19 03:55> <Dez Barraza - Last Filed: 03/30/19 07:13> - General Chief Complaint: Extremity Injury, Upper Stated Complaint: R Arm/Shoulder Pain Time Seen by Provider: 03/30/19 00:51 - History of Present Illness Initial Comments: 68-year-old female patient with past medical history significant for right shoulder dislocation presents to the emergency department today for evaluation of shoulder pain. Patient started to fall from a chair when her family member went to catch her and injured the arm. She believes it may be dislocated again. He denied her falling, hitting her head, losing consciousness. Patient is reporting pain radiating down the arm and up into her neck. She denies any numbness or tingling to the arms or legs. She denies any other injuries. Patient denies any headache, chest pain, shortness of breath, dizziness, weakness, abdominal pain, nausea, vomiting, or difficulties with bowel movements or urination. (Carlyn Robert) - Related Data Home Medications Medication Instructions Recorded Confirmed Citalopram Hydrobromide [CeleXA] 20 mg PO QAM 03/21/15 11/21/18 LORazepam [Ativan] 1 mg PO BID PRN 03/21/15 11/21/18 Ziprasidone [Geodon] 80 mg PO BID 03/21/15 11/21/18 Atorvastatin [Lipitor] 20 mg PO QAM 11/16/15 11/21/18 Carbidopa-Levodopa 25-100 mg 2 tab PO TID 02/01/16 11/21/18 [Sinemet 25-100] Clobazam [Onfi] 20 mg PO HS 02/01/16 11/21/18 lamoTRIgine [LaMICtal] 300 mg PO BID 02/01/16 11/21/18 Alendronate Sodium [Fosamax] 70 mg PO SA 11/21/18 11/21/18 Zonisamide [Zonegran] 200 mg PO HS 11/21/18 11/21/18 Allergies Allergy/AdvReac Type Severity Reaction Status Date / Time No Known Allergies Allergy Verified 03/30/19 00:36 Review of Systems ROS Other: All systems not noted in ROS Statement are negative. <Carlyn Robert - Last Filed: 03/30/19 03:55> ROS Other: All systems not noted in ROS Statement are negative. <Dez Barraza - Last Filed: 03/30/19 07:13> ROS Statement: Those systems with pertinent positive or pertinent negative responses have been documented in the HPI. 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 HX OF SEIZURES WITH FALLS . , LAST SEIZURE 01/25/16 WITH FALL AND LEFT ANKLE FX., WEARING A BOOT LEFT FOOT. , USES WALKER WITH WHEELS, STATES LEFT LEG BRUISED. , WEAKNESS LEFT SIDE. , STATES OCCASIONALLY NEEDS TO YAWN TO CATCH HER BREATH ., STATES NO MRI'S DUE TO VAGUS NERVE STIMULATOR IMPLANT. History of Any Multi-Drug Resistant Organisms: None Reported Additional Past Surgical History / Comment(s): VAGUS NERVE STIMULATOR LEFT CHEST (BATTERY ), LEFT HIPPOCAMPUS REMOVED. Past Anesthesia/Blood Transfusion Reactions: No Reported Reaction Additional Past Anesthesia/Blood Transfusion Reaction / Comment(s): HX OF BLOOD TRANSFUSION - NO REACTION Past Psychological History: Anxiety, Depression, Schizoaffective Disorder Smoking Status: Former smoker Past Alcohol Use History: None Reported Past Drug Use History: None Reported - Past Family History Mother Family Medical History: Cancer Father Family Medical History: Cancer <Carlyn Robert - Last Filed: 03/30/19 03:55> General Exam Limitations: no limitations General appearance: alert, in no apparent distress, other (Physical well- developed, well-nourished elderly female patient in no acute distress. Vital signs upon presentation are temperature 97.9F, pulse 90, respirations 20, blood pressure 165/87, pulse ox 99% on room air.) Eye exam: Present: normal appearance, PERRL, EOMI. Absent: scleral icterus, conjunctival injection, periorbital swelling ENT exam: Present: normal exam, normal oropharynx, mucous membranes moist Respiratory exam: Present: normal lung sounds bilaterally. Absent: respiratory distress, wheezes, rales, rhonchi, stridor Cardiovascular Exam: Present: regular rate, normal rhythm, normal heart sounds. Absent: systolic murmur, diastolic murmur, rubs, gallop, clicks GI/Abdominal exam: Present: soft, normal bowel sounds. Absent: distended, tenderness, guarding, rebound, rigid Extremities exam: Present: full ROM, normal capillary refill, other (There is deformity noted to the right shoulder. Skin is pink, warm, dry. Cap refills less than 3 seconds. Radial pulses 2+ and equal bilaterally.). Absent: normal inspection, tenderness, pedal edema, joint swelling, calf tenderness Neurological exam: Present: alert, oriented X3, CN II-XII intact Psychiatric exam: Present: normal affect, normal mood Skin exam: Present: warm, dry, intact, normal color. Absent: rash <Bantle,Carlyn M - Last Filed: 03/30/19 03:55> Course Vital Signs 03/30/19 03/30/19 03/30/19 00:30 02:31 02:54 Temperature 97.9 F Pulse Rate 90 89 91 Respiratory 20 20 19 Rate Blood Pressure 165/87 126/86 144/91 O2 Sat by Pulse 99 95 94 L Oximetry 03/30/19 03/30/19 03/30/19 02:59 03:04 03:10 Temperature Pulse Rate 87 84 86 Respiratory 18 15 20 Rate Blood Pressure 144/91 140/87 161/102 O2 Sat by Pulse 98 98 96 Oximetry 03/30/19 03/30/19 03/30/19 03:14 03:19 03:24 Temperature Pulse Rate 84 87 87 Respiratory 19 20 19 Rate Blood Pressure 162/96 160/98 169/65 O2 Sat by Pulse 95 95 96 Oximetry 03/30/19 03/30/19 03/30/19 03:29 03:34 03:39 Temperature Pulse Rate 86 85 87 Respiratory 15 15 15 Rate Blood Pressure 163/97 165/97 170/99 O2 Sat by Pulse 94 L 97 Oximetry 03/30/19 03/30/19 03:44 03:49 Temperature Pulse Rate 86 84 Respiratory 15 15 Rate Blood Pressure 164/99 163/96 O2 Sat by Pulse 97 95 Oximetry Procedures - [place] Protocol (Time Out) Procedure Performed:: moderate sedation for reduction of the right shoulder Performing Provider: Dez Barraza Nurse: Kade Moreira Respiratory Therapist: Rayna Moncada Patient Identification (2 identifiers required): Verbal, Arm Band, Birthdate Site: right shoulder Site Marked: Yes Site Verified With Patient/Guardian: Yes Final Confirmation: Procedure, Site, Patient Position <Carlyn Robert - Last Filed: 03/30/19 03:55> - Orthopedic Joint Reduction Joint #1 Consent Obtained: written consent Side: right Joint Reduction Location: shoulder Analgesia: procedural sedation Shoulder Technique Used (if applicable): external rotation Post-Reduction Neuro Exam: intact Post-Reduction Vascular Exam: intact Post Reduction X-Ray Obtained: Yes Post Reduction X-Ray Results: reduced Splint Applied: Yes Patient Tolerated Procedure: well, no complications - Procedural Sedation Indications: fracture/dislocation reduction ASA Class: II Mallampati Airway Score: 4 Preparation: school lunch monitor applied, pulse oximeter, capnometry used, supplemental O2 applied, suction/airway equipment at bedside, IV secured IV Etomidate Dose (mgs): 8 Patient Tolerated Procedure: well, no complications <Dez Barraza - Last Filed: 03/30/19 07:13> Medical Decision Making - Radiology Data Radiology results: report reviewed, image reviewed <Carlyn Robert - Last Filed: 03/30/19 03:55> <Dez Barraza - Last Filed: 03/30/19 07:13> - Medical Decision Making 68-year-old female patient presented to the emergency department today for evaluation of right shoulder pain. Patient did have deformity and physical exam. X-ray was obtained and showed an anterior dislocation. Attempt was made at reduction without sedation, was unsuccessful. I attending Dr. Barraza was in to perform conscious sedation with reduction of the right shoulder. This was successful. Repeat x-ray shows anatomic reduction. Patient was placed in a sling. She recovered well from conscious sedation. She'll be discharged to follow-up with assessment specialist for further evaluation as soon as possible. Return parameters were discussed in detail. She verbalizes understanding and agrees with this plan. (Carlyn Robert) I saw this patient in conjunction with the physician chiropractic assistant. I performed independent history and physical exam. Agree with case management. (Jose Barraza) - Radiology Data X-ray of the right shoulder is obtained. Report was reviewed in its entirety. Impression by Dr. Gonzales shows anterior dislocation. No fracture seen. 2 views of the right elbow are obtained. Report was reviewed in its entirety. Impression by Dr. Rivas shows negative limited right elbow exam. No fracture seen. Angle view of the right shoulder is obtained. Report was reviewed in its entirety. Impression by Dr. Gonzales shows anatomic reduction. (Carlyn Robert) Disposition Is patient prescribed a controlled substance at d/c from ED?: No <Carlyn Robert - Last Filed: 03/30/19 03:55> <Dez Barraza - Last Filed: 03/30/19 07:13> Clinical Impression: Anterior dislocation of right shoulder Disposition: HOME SELF-CARE Condition: Good Instructions (If sedation given, give patient instructions): Shoulder Dislocation (ED) Additional Instructions: Keep sling in place until follow-up with orthopedics. Perform gentle range of motion exercises 2-3 times per day. Take Tylenol and Motrin for pain control. Follow-up with assessment specialist for further evaluation as soon as possible. Return to the emergency department for any new, worsening, or concerning symptoms. Referrals: Javier Looney MD [Primary Care Provider] - 1-2 days
[2019-03-30] MEDS ORDERED: KETOROLAC 30 MG/ML 1 ML VIAL IVP STA (03:28)
[2019-03-30] MEDS ORDERED: ACET/COD 300 MG/30 MG STARTER PACK 6 TAB BTL PO STA (03:30)
[2019-03-30 03:48] VITALS: RESP 15
[2019-03-30 03:51] VITALS: BP 163/96; PULSE 84
--- NOTE | 2019-03-31 03:17 | CDI ---
Dear Carlyn Robert [facility]-: Please do addendum Conscious Sedation stop time. Thank you, Jessenia Malloy, Packager Head. If you have any questions, please contact Center Receptionist at [phone]. [facility]
== END 2019-03-30 04:21 | disposition home or self-care (01) ==
LOC: EC 00:25
DX: S43.014A Anterior dislocation of right humerus, initial encounter (principal); R41.3 Other amnesia; R29.6 Repeated falls; G40.909 Epilepsy, unspecified, not intractable, without status epilepticus; F32.9 Major depressive disorder, single episode, unspecified; F41.9 Anxiety disorder, unspecified; F25.9 Schizoaffective disorder, unspecified; Z87.891 Personal history of nicotine dependence; Z79.899 Other long term (current) drug therapy; Z87.828 Personal history of other (healed) physical injury and trauma; W07.XXXA Fall from chair, initial encounter; X50.1XXA Overexertion from prolonged static or awkward postures, initial encounter; Y92.009 Unspecified place in unspecified non-institutional (private) residence as the place of occurrence of the external cause
CPT/HCPCS: 99283; 23650; 99152; 96372; 73020; 73070; J2270; J1885

== ENCOUNTER 2019-07-21 09:54 | Inpatient (IN) | payer BC, MEDICARE ==
[2019-07-21] MEDS ORDERED: MORPHINE SULFATE 2 MG/ML SYRINGE IVP STA (10:16)
[2019-07-21] MEDS: SODIUM CHLORIDE 0.9% 1,000 ML IV SCH ×2 (10:32→21:17)
--- NOTE | 2019-07-21 10:39 | ED ---
General Adult HPI - General Chief complaint: Extremity Injury, Upper Stated complaint: shoulder pain Time Seen by Provider: 07/21/19 10:00 Source: patient, family, RN notes reviewed, old records reviewed Mode of arrival: wheelchair Limitations: no limitations - History of Present Illness Initial comments: Patient's a 60-year-old female who presents from orthopedic office sent from Dr. Girard with chief complaint of recurrent right shoulder dislocation. Patient has a history of seizures and reports that she has history of chronic dislocations. Patient has had her shoulder relocated multiple times the emergency department but due to significant limited ligament laxity repeatedly will dislocate. She reports that she does not recall when she could have re- dislocated her shoulder. She denies any acute pain at this time. She denies nausea, vomiting, fever, chills, cough, shortness of breath. - Related Data Home Medications Medication Instructions Recorded Confirmed Citalopram Hydrobromide [CeleXA] 20 mg PO QAM 03/21/15 11/21/18 LORazepam [Ativan] 1 mg PO BID PRN 03/21/15 11/21/18 Ziprasidone [Geodon] 80 mg PO BID 03/21/15 11/21/18 Atorvastatin [Lipitor] 20 mg PO QAM 11/16/15 11/21/18 Carbidopa-Levodopa 25-100 mg 2 tab PO TID 02/01/16 11/21/18 [Sinemet 25-100] Clobazam [Onfi] 20 mg PO HS 02/01/16 11/21/18 lamoTRIgine [LaMICtal] 300 mg PO BID 02/01/16 11/21/18 Alendronate Sodium [Fosamax] 70 mg PO SA 11/21/18 11/21/18 Zonisamide [Zonegran] 200 mg PO HS 11/21/18 11/21/18 Allergies Allergy/AdvReac Type Severity Reaction Status Date / Time No Known Allergies Allergy Verified 07/21/19 09:54 Review of Systems ROS Statement: Those systems with pertinent positive or pertinent negative responses have been documented in the HPI. ROS Other: All systems not noted in ROS Statement are negative. 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 HX OF SEIZURES WITH FALLS . , LAST SEIZURE 01/25/16 WITH FALL AND LEFT ANKLE FX., WEARING A BOOT LEFT FOOT. , USES WALKER WITH WHEELS, STATES LEFT LEG BRUISED. , WEAKNESS LEFT SIDE. , STATES OCCASIONALLY NEEDS TO YAWN TO CATCH HER BREATH ., STATES NO MRI'S DUE TO VAGUS NERVE STIMULATOR IMPLANT. History of Any Multi-Drug Resistant Organisms: None Reported Additional Past Surgical History / Comment(s): VAGUS NERVE STIMULATOR LEFT CHEST (BATTERY ), LEFT HIPPOCAMPUS REMOVED. Past Anesthesia/Blood Transfusion Reactions: No Reported Reaction Additional Past Anesthesia/Blood Transfusion Reaction / Comment(s): HX OF BLOOD TRANSFUSION - NO REACTION Past Psychological History: Anxiety, Depression, Schizoaffective Disorder Smoking Status: Former smoker Past Alcohol Use History: None Reported Past Drug Use History: None Reported - Past Family History Mother Family Medical History: Cancer Father Family Medical History: Cancer General Exam - General Exam Comments Initial Comments: 68-year-old female. Alert and oriented 3. Limitations: no limitations General appearance: alert Head exam: Present: atraumatic, normocephalic, normal inspection Eye exam: Present: normal appearance, PERRL, EOMI. Absent: scleral icterus, conjunctival injection, periorbital swelling ENT exam: Present: normal exam, mucous membranes moist Neck exam: Present: normal inspection. Absent: tenderness, meningismus, lymphadenopathy Respiratory exam: Present: normal lung sounds bilaterally Cardiovascular Exam: Present: regular rate, normal rhythm, normal heart sounds. Absent: systolic murmur, diastolic murmur, rubs, gallop, clicks GI/Abdominal exam: Present: soft, normal bowel sounds. Absent: distended, tenderness, guarding, rebound, rigid Extremities exam: Present: normal inspection, full ROM, normal capillary refill. Absent: tenderness, pedal edema, joint swelling, calf tenderness Right General: Absent: laceration Shoulder Exam: Present: tenderness, swelling, deformity (anterior swelling and low lying humerus). Absent: normal inspection, full ROM Upper Arm exam: Present: normal inspection, full ROM Elbow exam: Present: normal inspection, full ROM. Absent: abrasion Forearm Wrist exam: Present: normal inspection, full ROM Hand Wrist exam: Present: normal inspection, full ROM Neuro motor exam: Present: wrist extension intact, thumb opposition intact, thumb IP flexion intact, thumb adduction intact, fingers 2-5 abduction intact Vascular: Present: normal capillary refill Back exam: Present: normal inspection Neurological exam: Present: alert, oriented X3, CN II-XII intact Psychiatric exam: Present: normal affect Skin exam: Present: warm Course Vital Signs 07/21/19 09:55 Temperature 98 F Pulse Rate 78 Respiratory 18 Rate Blood Pressure 120/80 O2 Sat by Pulse 98 Oximetry EKG Findings - EKG Comments: EKG Findings:: EKG performed at 10:34 AM shows normal sinus rhythm normal EKG. Ventricular rate of 83 bpm. Verbal is 140 ms. QRS duration is 76 most seconds. QT QTc is 380/455 ms. Medical Decision Making - Medical Decision Making 68-year-old female presents from outpatient orthopedic office from Dr. Cooper with complaints of chronic right shoulder dislocation. She has a history of seizure disorder which will frequently causes her shoulder to dislocate. She does not know when she dislocated it as of recent. She is right-handed. At this time she is neurovascularly intact and has normal hybrid car mechanic strength on the right and pulses 2+ bilaterally. Shoulder x-ray shows evidence of injury to dislocation and chronic Hill-Sachs deformity. I discussed the case with SANGEETHA Paula who recommends leaving the shoulder out at this time and Patient will receive surgery tomorrow by Dr. Cooper for relocation. Request a medical consult but to admit the Patient to Dr. Cooper. Patient is agreeable to treatment plan. - Lab Data Result diagrams: 07/21/19 10:30 07/21/19 10:30 Lab Results 07/21/19 07/21/19 07/21/19 Range/Units 10:30 10:30 10:30 WBC 6.2 (3.8-10.6) k/uL RBC 4.52 (3.80-5.40) m/uL Hgb 14.0 (11.4-16.0) gm/dL Hct 43.0 (34.0-46.0) % MCV 95.1 (80.0-100.0) fL MCH 31.0 (25.0-35.0) pg MCHC 32.5 (31.0-37.0) g/dL RDW 12.9 (11.5-15.5) % Plt Count 332 (150-450) k/uL Neutrophils % 62 % Lymphocytes % 28 % Monocytes % 6 % Eosinophils % 2 % Basophils % 1 % Neutrophils # 3.9 (1.3-7.7) k/uL Lymphocytes # 1.7 (1.0-4.8) k/uL Monocytes # 0.4 (0-1.0) k/uL Eosinophils # 0.1 (0-0.7) k/uL Basophils # 0.0 (0-0.2) k/uL PT 9.6 (9.0-12.0) sec INR 0.9 (<1.2) APTT 24.7 (22.0-30.0) sec Sodium 136 L (137-145) mmol/L Potassium 4.2 (3.5-5.1) mmol/L Chloride 99 (98-107) mmol/L Carbon Dioxide 27 (22-30) mmol/L Anion Gap 10 mmol/L BUN 9 (7-17) mg/dL Creatinine 0.74 (0.52-1.04) mg/dL Est GFR (CKD-EPI)AfAm >90 (>60 ml/min/1.73 sqM) Est GFR (CKD-EPI)NonAf 84 (>60 ml/min/1.73 sqM) Glucose 86 (74-99) mg/dL Calcium 9.2 (8.4-10.2) mg/dL Total Bilirubin 0.5 (0.2-1.3) mg/dL AST 17 (14-36) U/L ALT <6 (4-34) U/L Alkaline Phosphatase 79 (38-126) U/L Total Protein 7.9 (6.3-8.2) g/dL Albumin 4.4 (3.5-5.0) g/dL - Radiology Data Radiology results: report reviewed X-ray shows recurrent anterior right shoulder dislocation with chronic Hill- Sachs deformity of the right humeral head. Disposition Clinical Impression: Shoulder dislocation, recurrent Disposition: ADMITTED IP TO THIS [facility] Condition: Stable Is patient prescribed a controlled substance at d/c from ED?: No Referrals: Percy Cooper MD [REFERRING] - 1-2 days Time of Disposition: 11:31
[2019-07-21 10:55] LABS: Basophils % (A) 1 %; Eosinophils # (A) 0.1 k/uL (0-0.7); Eosinophils % (A) 2 %; Lymphocytes # (A) 1.7 k/uL (1.0-4.8); Lymphocytes % (A) 28 %; MCHC 32.5 g/dL (31.0-37.0); MCV 95.1 fL (80.0-100.0); Mean Platelet Volume 6.9; Monocytes # (A) 0.4 k/uL (0-1.0); Monocytes % (A) 6 %; Neutrophils # (A) 3.9 k/uL (1.3-7.7); Neutrophils % (A) 62 %; Platelet Count 332 k/uL (150-450); RBC 4.52 m/uL (3.80-5.40); RDW 12.9 % (11.5-15.5); WBC 6.2 k/uL (3.8-10.6)
[2019-07-21 11:03] LABS: INR 0.9 (<1.2); Partial Thromboplastin Time 24.7 sec (22.0-30.0); Prothrombin Time 9.6 sec (9.0-12.0)
[2019-07-21 11:06] LABS: ALT <6 U/L (4-34); AST 17 U/L (14-36); African American GFR (CKD) >90 (>60 ml/min/1.73 sqM); Albumin 4.4 g/dL (3.5-5.0); Alkaline Phosphatase 79 U/L (38-126); Anion Gap 10 mmol/L; Blood Urea Nitrogen 9 mg/dL (7-17); Calcium 9.2 mg/dL (8.4-10.2); Carbon Dioxide 27 mmol/L (22-30); Chloride 99 mmol/L (98-107); Glucose 86 mg/dL (74-99); Non-African American GFR(CKD) 84 (>60 ml/min/1.73 sqM); Potassium 4.2 mmol/L (3.5-5.1); Sodium 136 mmol/L (137-145); Total Bilirubin 0.5 mg/dL (0.2-1.3); Total Protein 7.9 g/dL (6.3-8.2)
--- NOTE | 2019-07-21 11:06 | XR ---
EXAMINATION TYPE: XR shoulder complete RT DATE OF EXAM: 07/21/2019 CLINICAL HISTORY: Shoulder dislocation TECHNIQUE: Three views of the right shoulder are obtained. COMPARISON: 03/30/2019 FINDINGS: There is a recurrent acute anterior right shoulder dislocation. There is chronic appearing impaction fracture deformity of the posterior superior humeral head. 2 possible osseous fragments are seen lateral to the humeral head. There is mild diffuse osseous demineralization and mild to moderat e acromio clavicular arthropathy. Small osteophyte projects of the anterior inferior humeral head. IMPRESSION: Recurrent acute anterior right shoulder dislocation with chronic Hill-Sachs deformity of the right humeral head.
[2019-07-21] MEDS ORDERED: MORPHINE SULFATE 4 MG/ML SYRINGE IV PRN (11:26)
[2019-07-21] MEDS ORDERED: ONDANSETRON 4 MG/2 ML VIAL IVP PRN (11:26)
[2019-07-21] MEDS ORDERED: NALOXONE 0.4 MG/ML 1 ML VIAL IV PRN (11:26)
[2019-07-21] MEDS ORDERED: IBUPROFEN 400 MG TAB PO PRN (11:26)
[2019-07-21] MEDS ORDERED: ACETAMINOPHEN TAB 325 MG TAB PO PRN (11:26)
--- NOTE | 2019-07-21 12:00 | CT ---
EXAMINATION TYPE: CT shoulder RT wo con DATE OF EXAM: 07/21/2019 COMPARISON: Right shoulder radiograph dated 07/21/2019 and 03/30/2019 HISTORY: Recurrent Rt Shoulder dislocation CT DLP: 359.3 mGycm Automated exposure control for dose reduction was used. FINDINGS: There are multiple small fracture fragments seen from the fractured and mildly distracted acromion fr acture with diastases of 5 mm and from the posterior superior humeral head. There remains an anterior shoulder dislocation with smoothly marginated chronic impaction fracture deformity with remodeling o f the posterior superior humeral head extending into the inferior humeral head. Osseous fragments are seen within a complex right humeral joint effusion. Rotator cuff is poorly defined and there is a irving spected chronic rotator cuff tear. Numerous small erosions are seen. The visualized portions of the right ribs appear intact as does the clavicle. Moderate paraseptal emp hysematous changes of the visualized lungs are seen. No acute bony Bank[place] is seen. Partially visuali zed moderate to severe degenerative change of the spine with grade 1 anterolisthesis of C2 on C3 and C3 on C4 that are less than a degenerative basis. IMPRESSION: 1. ACUTE ON CHRONIC/RECURRENT RIGHT ANTERIOR SHOULDER DISLOCATION WITH CHRONIC APPEARING LARGE RIGHT HUMERAL HILL-SACHS DEFORMITY AND MULTIPLE INTRA-ARTICULAR OSSEOUS FRAGMENTS WITH DONOR SITES APPEARIN G FROM THE HUMERAL HEAD. 2. ACUTE, COMMINUTED, MILDLY DISTRACTED RIGHT ACROMIAL FRACTURE. 3. NUMEROUS SMALL EROSIONS OF THE HUMERAL HEAD ARE SEEN AND UNDERLYING EROSIVE OSTEOARTHRITIS, GOUT, OR OTHER ARTHROPATHY SHOULD BE CONSIDERED. ALTERNATIVELY THESE COULD BE SEQUELA OF PRIOR TRAUMA AND H EMARTHROSIS. 4. LARGE COMPLEX RIGHT SHOULDER JOINT EFFUSION, LIKELY HEMARTHROSIS.
--- NOTE | 2019-07-21 12:29 | HP ---
HISTORY AND PHYSICAL CHIEF COMPLAINT: Right shoulder pain. HISTORY OF PRESENT ILLNESS: Patient is a 68-year-old, right-hand dominant, retired female who presents with right shoulder pain worsening over the past week. She has had multiple recent falls. She has also had significant seizure activity. She has a difficult time moving the right shoulder at all. She has history of multiple previous dislocations with closed reduction. PAST MEDICAL HISTORY: Significant for depression and seizures. PAST SURGICAL HISTORY: Significant for vagus nerve stimulator along with fixation of a previous bimalleolar ankle fracture. CURRENT MEDICATIONS: 1. Ativan. 2. Celexa. 3. Alendronate. 4. Lamictal. 5. Geodon. 6. Lipitor. 7. Sinemet. 8. Zonegran. She has no known drug allergies. FAMILY HISTORY: Significant for cancer. SOCIAL HISTORY: Negative for current tobacco or alcohol use. 16 POINT REVIEW OF SYSTEMS: Otherwise reviewed and is noncontributory. PHYSICAL EXAMINATION: On examination, the patient is a well-developed, well-nourished female of mesomorphic habitus. HEENT exam is nonfocal. Neck is supple. On examination of her right shoulder, she has marked guarding. She has fullness about the anterior aspect of the glenohumeral joint. She has limited range of motion with particularly external rotation, which is less than 0. She is nontender about the right elbow and wrist. Her distal neurovascular exam otherwise appears intact in the right upper extremity. X-rays of the right shoulder obtained in the office show an anterior glenohumeral dislocation with a large Hill-Sachs lesion. There appears to be some fragmentation of the greater tuberosity. IMPRESSION: 1. Recurrent right glenohumeral dislocation. 2. History of seizure disorder. RECOMMENDATIONS: I talked to the patient and her at length regarding her condition and options. She has a very complicated problem at this point with instability. We will plan to obtain a CT scan of the right shoulder and proceed with right shoulder hemiarthroplasty versus total shoulder arthroplasty depending on CT scan results. Risks and benefits were discussed at length in layman's terms. MMODL / IJN: [id number] /
[2019-07-21] MEDS ORDERED: LORazepam 1 MG TAB PO PRN (15:02)
[2019-07-21] MEDS: CARBIDOPA-LEVODOPA 25-100 MG 1 EACH TAB PO SCH ×2 (18:37→21:16)
[2019-07-21] MEDS: ZONISAMIDE 100 MG CAP PO SCH (21:15)
[2019-07-21] MEDS: DOCUSATE 100 MG CAP PO SCH (21:15)
[2019-07-21] MEDS: ZIPRASIDONE 80 MG CAP PO SCH (21:15)
[2019-07-21] MEDS: lamoTRIgine 100 MG TAB PO SCH (21:16)
[2019-07-21] MEDS: HYDROmorphone 0.5 MG/0.5 ML SYRINGE IVP PRN (21:31)
[2019-07-22] MEDS: HYDROmorphone 0.5 MG/0.5 ML SYRINGE IVP PRN (04:55)
[2019-07-22] MEDS: SODIUM CHLORIDE 0.9% 1,000 ML IV SCH ×3 (05:02→21:17)
[2019-07-22] MEDS ORDERED: IV FLUID CONTINUATION 1,000 ML IV ONE (06:20)
[2019-07-22] MEDS ORDERED: fentaNYL (PF) 50 MCG/ML 2 ML AMP IV ONE (06:46)
[2019-07-22] MEDS ORDERED: ONDANSETRON 4 MG/2 ML VIAL IVP ONE (06:55)
[2019-07-22] MEDS ORDERED: DEXAMETHASONE SOD PHOSPHATE 10 MG/ML 1 ML VIAL IV ONE (06:56)
[2019-07-22] MEDS ORDERED: PROPOFOL 10 MG/ML 20 ML VIAL IV ONE (07:02)
[2019-07-22] MEDS ORDERED: ROPIVACAINE 5 MG/ML 30 ML VIAL ONE (07:02)
[2019-07-22] MEDS ORDERED: SUCCINYLCHOLINE CHLORIDE 100 MG/5 ML SYR IV ONE (07:02)
[2019-07-22] MEDS ORDERED: PHENYLEPHRINE-0.9% NACL SYG 1 MG/10 ML SYRINGE ONE (07:02)
[2019-07-22] MEDS ORDERED: ceFAZolin 3,000 MG in SODIUM CHLORIDE 0.9% IRRIGATIO 3,000 ML IRRIGATION ONE (07:34)
[2019-07-22] MEDS ORDERED: LACTATED RINGERS 1,000 ML IV ONE (08:40)
--- NOTE | 2019-07-22 08:51 | P.ANPRN ---
Procedure Note - Anesthesia - Nerve Block Performed Right Interscalene Single Time Out Performed: Yes Date of Procedure: 07/22/19 Procedure Start Time: 06:45 Procedure Stop Time: 06:53 Location of Patient: PreOp Indication: Acute Post-Operative Pain, Requested by Surgeon Specifically requested for management of pain by DrRadha: Virgilio Cooper Sedation Type: Sedate with meaningful contact maintained Preparation: Sterile Prep Position: Supine Catheter: None Needle Types: Pajunk Needle Gauge: 21 Ultrasound used to visualize needle placement: Yes Ultrasound used to observe medication spread: Yes Injectate: 0.5% Ropivacaine (see comment for volume) Adjunct: Epinephrine (see comment for dilution ratio) Blood Aspirated: No Pain Paresthesia on Injection Noted: No Resistance on Injection: Normal Image Stored and Saved: Yes Events: Uneventful and Well Tolerated (0.5 Ropivicaine 15cc 2% lidocaine with epi 5cc)
[2019-07-22] MEDS ORDERED: HYDROcodone/APAP 5-325MG 1 EACH TAB PO PRN (08:53)
--- NOTE | 2019-07-22 09:20 | P.OP ---
Date of Procedure: 07/22/19 Preoperative Diagnosis: Recurrent right glenohumeral dislocation/irreducible Postoperative Diagnosis: Same Procedure(s) Performed: Right shoulder hemiarthroplastypress-fit Implants: [employer] size 12 press-fit humeral stem with size 12 body, 52 mm x 21 mm eccentric humeral head. Anesthesia: [facility] Surgeon: Virgilio Cooper Cabinet Builder #1: Ken Ellsworth Estimated Blood Loss (ml): 150 Pathology: other (Humeral head) Condition: stable Disposition: PACU Indications for Procedure: The patient's a 68-year-old [id number] female who presents after a long history of multiple right glenohumeral dislocations with an irreducible anterior recurrent dislocation. Computed tomography scan showed a large posterior humeral head defect however no definite glenoid bony pathology. A discussion of the risks and benefits of operative intervention was made with the family and the patient. She opted to proceed with surgery. Specific risks of surgery to include infection, neurovascular injury, development blood clots, possible recurrent instability need for subsequent procedures was discussed. The patient and her family were instructed on the complexity of her condition. Informed consent was obtained. Operative Findings: As below Description of Procedure: The patient was brought to the operating room, and after induction of general anesthesia was placed in a beachchair position. I did attempt to reduce her dislocation however this was unsuccessful. The right upper extremity was prepped and draped in normal fashion. A deltopectoral incision was then made just lateral to the coracoid process extending approximately 12 cm. Skin and subcutaneous tissues were divided sharply. Electrocautery was used for hemostasis. Deltopectoral interval was identified and cephalic vein was gently retracted laterally. Subdeltoid adhesions were bluntly dissected. A self- retaining retractor was placed. The coracoclavicular fascia was opened and the conjoined tendon was gently retracted medially. The upper one third of the pectoralis major was released with electrocautery to help facilitate exposure. The bicipital groove was opened. The biceps was tenotomized. The rotator interval was opened. The subscapularis was taken off the lesser tuberosity sharply. This was tagged. The humeral head was dislocated anteriorly. The humeral head was exposed. A starting hole was made in line with the bicipital groove and the humeral shaft. The shaft was then reamed by hand up to size 12. There is good distal chatter. The humeral head cut was then made planning on 30-40 of retroversion flush with the rotator cuff insertion. The humeral head was then removed. The glenoid was inspected. There was no significant cartilage or bony pathology. The proximal humerus was then broached in 30-40 of retroversion with a size 12 broach. There was good rotational stability. A trial 21 x 52 mm eccentric humeral head was placed and the shoulder was gently reduced. It was taken through range of motion felt to be stable in flexion and extension with internal and external rotation. The shoulder was gently dislocated and the trial components were removed. Multiple drill holes were made lateral to the bicipital groove for reattachment of the subscapularis. The humeral stem was inserted again at 30-40 of retroversion and was fully seated. There was good rotational stability. The final 21 x 52 mm eccentric head was placed and was gently impacted. The shoulder was gently reduced. Again it was taken through range of motion felt to be stable. The subscapularis was reattached with #2 Ethibond suture. The rotator interval was closed with interrupted #2 Ethibond suture. Pulsatile lavage was utilized. The deltopectoral interval was closed with interrupted 2-0 Vicryl sutures. The subcu tissues reapproximated interrupted 2-0 Vicryl sutures. The skin was reapproximated with 3-0 subcuticular Prolene suture. Steri-Strips were applied. A sterile dressing was applied in addition to a shoulder immobilizer. The patient was then awoken from general anesthesia and transferred to recovery room in good condition. Blood loss was estimated at 150 mL. No complications were incurred. Sponge and needle counts were correct in the case. Jean-Paul VIVAS assisted during the major components of the case including exposure, bony resection, implantation, and closure.
--- NOTE | 2019-07-22 10:20 | XR ---
EXAMINATION TYPE: XR shoulder limited RT DATE OF EXAM: 07/22/2019 COMPARISON: 07/21/2019, CT shoulder 07/21/2019 HISTORY: Shoulder hemiarthroplasty TECHNIQUE: AP views of the right shoulder were obtained. FINDINGS: There is placement of a right shoulder prosthesis. The humeral component articulates with t he glenoid. No acute fracture is identified. IMPRESSION: 1. No acute fracture post right shoulder replacement.
[2019-07-22] MEDS: CLOBAZAM 30 MG PO SCH (10:42)
[2019-07-22] MEDS: PANTOPRAZOLE 40 MG/10 ML VIAL IV SCH (11:23)
[2019-07-22 12:44] VITALS: RESP 18
[2019-07-22] MEDS: CARBIDOPA-LEVODOPA 25-100 MG 1 EACH TAB PO SCH ×3 (12:46→21:14)
[2019-07-22] MEDS: ATORVASTATIN 20 MG TAB PO SCH (12:52)
[2019-07-22] MEDS: ZIPRASIDONE 80 MG CAP PO SCH ×2 (12:52→21:13)
[2019-07-22] MEDS: HYDROcodone/APAP 5-325MG 1 EACH TAB PO PRN (12:52)
[2019-07-22] MEDS: lamoTRIgine 100 MG TAB PO SCH ×2 (12:52→21:13)
[2019-07-22] MEDS: CITALOPRAM HYDROBROMIDE 20 MG TAB PO SCH (12:52)
[2019-07-22] MEDS: DOCUSATE 100 MG CAP PO SCH ×2 (12:52→21:13)
--- NOTE | 2019-07-22 17:56 | P.CONS ---
History of Present Illness - Reason for Consult Consult date: 07/22/19 Medical management seizure disorder dementia, anxiety, depression, schizoaf Requesting physician: Virgilio Cooper - Chief Complaint Right shoulder dislocation, - History of Present Illness This is 68-year-old female sent to the ER directly from orthopedics office With recurrent right shoulder dislocation, irreducible. Shoulder x-ray/CT performed. CT reported large humeral head defect. status post Right shoulder hemiarthroplastypress-fit. Tolerated procedure well. Vital signs stable- borderline hypotension-systolic blood pressures running in the mid 90s to 110s. recently medicated, poor historian. Majority of information obtained from staff, chart. Denies chest pain, palpitations or shortness of breath. Coronavirus not detected. Chemistry and hematology unremarkable. EKG reporting normal sinus rhythm. Review of Systems ROS Statement: Those systems with pertinent positive or pertinent negative responses have been documented in the HPI. ROS Other: All systems not noted in ROS Statement are negative. 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 HX OF SEIZURES WITH FALLS . , LAST SEIZURE 01/25/16 WITH FALL AND LEFT ANKLE FX., WEARING A BOOT LEFT FOOT. , USES WALKER WITH WHEELS, STATES LEFT LEG BRUISED. , WEAKNESS LEFT SIDE. , STATES OCCASIONALLY NEEDS TO YAWN TO CATCH HER BREATH ., STATES NO MRI'S DUE TO VAGUS NERVE STIMULATOR IMPLANT. History of Any Multi-Drug Resistant Organisms: None Reported Past Surgical History: Orthopedic Surgery Additional Past Surgical History / Comment(s): VAGUS NERVE STIMULATOR LEFT CHEST (BATTERY ), LEFT HIPPOCAMPUS REMOVED. Past Anesthesia/Blood Transfusion Reactions: No Reported Reaction Additional Past Anesthesia/Blood Transfusion Reaction / Comm: HX OF BLOOD TRANSFUSION - NO REACTION Past Psychological History: Anxiety, Depression, Schizoaffective Disorder Smoking Status: Former smoker Past Alcohol Use History: None Reported Additional Past Alcohol Use History / Comment(s): QUIT SMOKING 1989. SMOKED 1 PPD. SMOKED FOR APPROX 35 YEARS. Past Drug Use History: None Reported - Past Family History Mother Family Medical History: Cancer Father Family Medical History: Cancer Medications and Allergies Home Medications Medication Instructions Recorded Confirmed Type Citalopram Hydrobromide [CeleXA] 20 mg PO DAILY 03/21/15 07/21/19 History LORazepam [Ativan] 1 mg PO DAILY PRN 03/21/15 07/21/19 History Ziprasidone [Geodon] 80 mg PO BID 03/21/15 07/21/19 History Atorvastatin [Lipitor] 20 mg PO DAILY 11/16/15 07/21/19 History Carbidopa-Levodopa 25-100 mg 2 tab PO TID 02/01/16 07/21/19 History [Sinemet 25-100] Alendronate Sodium [Fosamax] 70 mg PO SA 11/21/18 07/21/19 History Zonisamide [Zonegran] 200 mg PO HS 11/21/18 07/21/19 History Clobazam 30 mg PO DAILY 07/21/19 07/21/19 History Docusate [Colace] 100 mg PO BID 07/21/19 07/21/19 History lamoTRIgine [LaMICtal Xr] 300 mg PO BID 07/21/19 07/21/19 History Allergies Allergy/AdvReac Type Severity Reaction Status Date / Time No Known Allergies Allergy Verified 07/21/19 12:57 Physical Exam Vitals: Vital Signs Temp Pulse Pulse Resp BP BP BP 07/22/19 10:28 98.7 F 94 16 106/71 07/22/19 10:00 85 16 95/53 07/22/19 09:47 88 16 97/52 07/22/19 09:31 90 16 106/53 07/22/19 09:17 97.1 F L 85 20 101/54 07/22/19 06:21 97.3 F L 90 127/70 07/22/19 05:40 97.5 F L 89 18 07/22/19 04:57 97.5 F L 80 18 99/64 07/22/19 00:00 18 07/21/19 20:13 97.8 F 88 18 137/67 07/21/19 16:15 97.7 F 82 18 127/77 07/21/19 16:00 82 18 07/21/19 15:00 97.8 F 77 18 118/70 07/21/19 12:00 97.8 F 70 18 130/82 Pulse Ox 07/22/19 10:28 99 07/22/19 10:00 98 07/22/19 09:47 99 07/22/19 09:31 99 07/22/19 09:17 96 07/22/19 06:21 96 07/22/19 05:40 07/22/19 04:57 93 L 07/22/19 00:00 07/21/19 20:13 96 07/21/19 16:15 97 07/21/19 16:00 07/21/19 15:00 98 07/21/19 12:00 99 Intake and Output 07/21/19 07/22/19 07/22/19 22:59 06:59 14:59 Intake Total 1051 Output Total 150 Balance 901 Intake: IV 1051 Output: Estimated Blood Loss 150 Other: # Voids 1 1 # Bowel Movements 0 0 PHYSICAL EXAM: VITAL SIGNS: As above GENERAL: Sitting up in bed, no acute distress, wearing a right sling HEENT: Conjunctivae normal. eyes normal. NECK: No JVD. No thyroid enlargement. No LNs CARDIOVASCULAR: S1, S2 regular.. No murmur RESPIRATION: Breath sounds diminished in the bases. No rhonchi or crackles. No bronchial breathing. ABDOMEN: Soft, nontender . No guarding. no masses palpable. No ascites, No hepatosplenomegaly.Bowel sounds heard. LEGS: No edema. no swelling PSYCHIATRY: Alert and oriented X2, mood and affect normal. NERVOUS SYSTEM: Cranial N 2-12 grossly normal. Diffuse weakness, right upper extremity in sling, fingers warm wiggles fingers freely, trace edema. Skin: no rash Lymphatic system. No LN neck axilla Results CBC & Chem 7: 07/21/19 10:30 07/21/19 10:30 Assessment and Plan Assessment: Status post Right shoulder hemiarthroplastypress-fit. History of recurrent multiple right dislocations, currently irreducible. CT reported large humeral head defect. Seizure disorder Dementia, possible Parkinson's disease Gait dysfunction, uses a walker Left ankle fracture, wears a left boot Vagus nerve stimulator Left hippocampus removed Anxiety Depression Schizoaffective disorder Former nicotine dependence, 1 pack per day 35 years Coronavirus not detected Plan: Continue on current medication regime ,monitoring and symptomatic treatment. Home meds have been reviewed and resumed accordingly. Pain management, anticoagulation as per primary.Protonix in place for GI prophylaxis. Thank you Dr. Girard for the consult. The impression and plan of care has been dictated as directed. : I performed a history and examination of this patient, discussed the same with the dictator. I agree with the dictator's note ,documented as a scribe. Any additional findings or plans will be noted.
[2019-07-22 18:59] LABS: Basophils % (A) 0 %; Eosinophils % (A) 0 %; HCT 36.1 % (34.0-46.0); HGB 11.4 gm/dL (11.4-16.0); Lymphocytes # (A) 0.7 k/uL (1.0-4.8); Lymphocytes % (A) 8 %; MCH 30.9 pg (25.0-35.0); MCHC 31.7 g/dL (31.0-37.0); MCV 97.5 fL (80.0-100.0); Mean Platelet Volume 7.2; Monocytes # (A) 0.6 k/uL (0-1.0); Monocytes % (A) 7 %; Neutrophils # (A) 7.2 k/uL (1.3-7.7); Neutrophils % (A) 84 %; Platelet Count 265 k/uL (150-450); RDW 13.1 % (11.5-15.5); WBC 8.5 k/uL (3.8-10.6)
[2019-07-22] MEDS: ZONISAMIDE 100 MG CAP PO SCH (21:13)
[2019-07-23] MEDS: HYDROcodone/APAP 5-325MG 1 EACH TAB PO PRN ×2 (02:27→14:44)
[2019-07-23 04:43] VITALS: BP 118/75; PULSE 97; TEMP 98.1
[2019-07-23] MEDS: SODIUM CHLORIDE 0.9% 1,000 ML IV SCH (08:51)
[2019-07-23] MEDS: lamoTRIgine 100 MG TAB PO SCH (08:52)
[2019-07-23] MEDS: ATORVASTATIN 20 MG TAB PO SCH (08:52)
[2019-07-23] MEDS: CITALOPRAM HYDROBROMIDE 20 MG TAB PO SCH (08:52)
[2019-07-23] MEDS: CARBIDOPA-LEVODOPA 25-100 MG 1 EACH TAB PO SCH ×2 (08:52→17:14)
[2019-07-23] MEDS: PANTOPRAZOLE 40 MG/10 ML VIAL IV SCH (08:53)
[2019-07-23] MEDS: CLOBAZAM 30 MG PO SCH (08:53)
[2019-07-23] MEDS: ZIPRASIDONE 80 MG CAP PO SCH (08:53)
[2019-07-23] MEDS: DOCUSATE 100 MG CAP PO SCH (08:53)
--- NOTE | 2019-07-23 09:13 | P.PN ---
Subjective Progress Note Date: 07/23/19 Principal diagnosis: Status post right shoulder hemiarthroplasty Patient evaluated today at bedside, she is resting comfortably. She has generalized pain in the right shoulder. She denies any chest pain or shortness of breath. Objective - Vital Signs Vital signs: Vital Signs Temp 98.1 F 07/23/19 04:42 Pulse 97 07/23/19 04:42 Resp 18 07/23/19 04:42 BP 118/75 07/23/19 04:42 Pulse Ox 97 07/23/19 04:42 Intake & Output 07/22/19 07/23/19 07/23/19 18:59 06:59 18:59 Intake Total 1831 1000 Output Total 150 Balance 1681 1000 Intake: IV 1051 Intake, IV Titration 300 1000 Amount Sodium Chloride 0.9% 1, 300 1000 000 ml @ 100 mls/hr IV . Q10H LOIS Rx#:[id number] Oral 480 Output: Estimated Blood Loss 150 Other: Voiding Method Toilet Toilet Bedpan Bedpan # Voids 2 2 - Exam Right upper extremity: Incision is clean, dry and intact. Obvious ecchymosis and soft tissue swelling. Range of motion of the shoulder is limited. She is able to extend and flex the elbow along with the hand and wrist. Sensory exam light touch is intact, radial pulses 2+. - Labs CBC & Chem 7: 07/22/19 18:26 07/21/19 10:30 Labs: Abnormal Lab Results - Last 24 Hours (Table) 07/22/19 Range/Units 18:26 RBC 3.70 L (3.80-5.40) m/uL Lymphocytes # 0.7 L (1.0-4.8) k/uL Assessment and Plan Assessment: Status post right shoulder hemiarthroplasty Plan: Pain control, discharged home on oral medication GI and DVT prophylaxis, aspirin 325 mg daily Wound care instructions discussed Activity levels discussed, utilize arm sling Medical recommendations Plan [facility] 2 [facility] Time with Patient: Less than 30
--- NOTE | 2019-07-23 09:20 | P.DS ---
Providers Date of admission: 07/22/19 08:53 Expected date of discharge: 07/23/19 Attending physician: Virgilio Cooper Consults: 07/21/19 11:25 Consult Physician Stat Consulting Provider: Javier Looney Reason/Comments: Medical clearance, pre-op Do you want consulting provider notified?: Yes Primary care physician: Javier Looney Hospital Course: Date of admission: 07/21/2019 Date of discharge: 07/23/2019 Admission diagnosis: Right shoulder dislocation, Irreducible Discharge diagnosis: Status post right shoulder hemiarthroplasty Attending physician: Dr. Cooper Surgical procedures: Right shoulder hemiarthroplasty Brief history: Patient is a 68-year-old female with history of chronic right shoulder dislocations with Hill-Sachs deformity. She was evaluated in the outpatient setting by Dr. Cooper on 07/21/2019, it was determined she had another dislocation. He discussed treatment options, she was admitted to [facility] with plan for surgical intervention on 07/22/2019. Hospital course: Details of patient's surgery can be found in operative report. Patient tolerated the procedure well and was subsequently transported to orthopedic floor. Patient's orthopeidc and medical care was provided daily. Patient had daily laboratory tests performed for evaluation of overall blood counts. Patient had daily physical therapy to include strengthening range of motion as well as education with walker ambulation. Patient was noted to have a relatively uneventful postoperative course. Patient reported satisfactory pain control with oral pain medications by postoperative day 0. Patient showed satisfactory progress with physical therapy. Patient moved steadily through the program and had no difficulty meeting the goals by postoperative day 1. Given patient's otherwise satisfactory course and having met physical therapy goals, plan is to discharge patient home on postoperative day 1. Discharge condition/disposition: Patient will be discharged home in stable condition. Discharge medications: Instructions are given on resumption of patient's normal daily medications per primary care recommendation, in addition patient will be prescribed [place] 5 mg/325 mg, aspirin 325 mg Discharge instructions: 1. Wound care and infection precautions, keep incision dry and covered while showering, no lotions, creams, moisturizers. No soaking, tubs, pools, hottubs. Do not scrub over the incision. 2. Utilize arm sling, avoid excessive use of the right upper extremity 3. Ice and elevate when necessary. Do not exceed 20 minutes per hour with ice pack. 7. Pain meds and anticoagulants per prescription. 8. Pain medication has potential to cause constipation. Increase oral fluid and fiber intake. Contact primary care provider if you have not had a bowel movement within 48 hours after discharge 10. Follow up in office at 2 weeks postop with Jean-Paul Ellsworth PA-C 11. Follow up with your primary care doctor 7-10 days after discharge. 12. Contact [facility] with any questions, . 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 Citalopram Hydrobromide [CeleXA] 20 mg PO DAILY Atorvastatin [Lipitor] 20 mg PO DAILY Carbidopa-Levodopa 25-100 mg [Sinemet 25-100] 2 tab PO TID Alendronate Sodium [Fosamax] 70 mg PO SA Zonisamide [Zonegran] 200 mg PO HS Docusate [Colace] 100 mg PO BID lamoTRIgine [LaMICtal Xr] 300 mg PO BID Clobazam 30 mg PO DAILY Discharge Medication List Citalopram Hydrobromide [CeleXA] 20 mg PO DAILY 03/21/15 [History] LORazepam [Ativan] 1 mg PO DAILY PRN 03/21/15 [History] Ziprasidone [Geodon] 80 mg PO BID 03/21/15 [History] Atorvastatin [Lipitor] 20 mg PO DAILY 11/16/15 [History] Carbidopa-Levodopa 25-100 mg [Sinemet 25-100] 2 tab PO TID 02/01/16 [History] Alendronate Sodium [Fosamax] 70 mg PO SA 11/21/18 [History] Zonisamide [Zonegran] 200 mg PO HS 11/21/18 [History] Clobazam 30 mg PO DAILY 07/21/19 [History] Docusate [Colace] 100 mg PO BID 07/21/19 [History] lamoTRIgine [LaMICtal Xr] 300 mg PO BID 07/21/19 [History] Aspirin 325 mg PO DAILY #30 tab 07/23/19 [Rx] Hydrocodone/Acetaminophen [[place] 5-325] 1 each PO Q6HR PRN #28 tab 07/23/19 [Rx] Follow up Appointment(s)/Referral(s): Percy Cooper MD [REFERRING] - 1-2 days Virgilio Cooper MD [STAFF PHYSICIAN] - 2 Weeks Activity/Diet/Wound Care/Special Instructions: Orthopedic discharge instructions: 1. Utilize arm sling at all times 2. Keep incision clean, dry and covered while showering 3. Ice the shoulder often 4. Pain medication as needed 5. Aspirin 325 mg daily for DVT prophylaxis 6. Plan for [facility]-up at [facility] 2 weeks Discharge Disposition: HOME WITH HOME HEALTH SERVICES
--- NOTE | 2019-07-23 11:08 | P.PN ---
Subjective Progress Note Date: 07/23/19 This is 68-year-old female sent to the ER directly from orthopedics office With recurrent right shoulder dislocation, irreducible. Shoulder x-ray/CT performed. CT reported large humeral head defect. status post Right shoulder hemiarthroplastypress-fit. Tolerated procedure well. Vital signs stable-borde rline hypotension-systolic blood pressures running in the mid 90s to 110s. recently medicated, poor historian. Majority of information obtained from staff, chart. Denies chest pain, palpitations or shortness of breath. Coronavirus not detected. Chemistry and hematology unremarkable. EKG reporting normal sinus rhythm. 07/23/2019 postop day #1, doing well. Up with assistance to the bathroom, tolerated exertion well. Patient is right handed, needs assistance with ADLs. Passing flatus, no bowel movement. Patient states history of constipation and that she requires a laxative every day. Pain currently controlled. Denies chest pain, palpitations or shortness of breath. Denies lightheadedness, dizziness or focal deficits.VSS. Objective - Vital Signs Vital signs: Vital Signs Temp 98.1 F 07/23/19 04:42 Pulse 97 07/23/19 04:42 Resp 18 07/23/19 04:42 BP 118/75 07/23/19 04:42 Pulse Ox 97 07/23/19 04:42 Intake & Output 07/22/19 07/23/19 07/23/19 18:59 06:59 18:59 Intake Total 1831 1000 Output Total 150 Balance 1681 1000 Intake: IV 1051 Intake, IV Titration 300 1000 Amount Sodium Chloride 0.9% 1, 300 1000 000 ml @ 100 mls/hr IV . Q10H LOIS Rx#:[id number] Oral 480 Output: Estimated Blood Loss 150 Other: Voiding Method Toilet Toilet Toilet Bedpan Bedpan Bedpan # Voids 2 2 - Exam VITAL SIGNS: As above GENERAL: Sitting up in bed, no acute distress, wearing a right sling HEENT: Conjunctivae normal. eyes normal. Oral mucosa moist NECK: No JVD. No thyroid enlargement. No LNs CARDIOVASCULAR: S1, S2 regular. No murmur RESPIRATION: Breath sounds diminished in the bases. No rhonchi or crackles. No wheezing. ABDOMEN: Soft, nontender . No guarding. no masses palpable.Bowel sounds heard. LEGS: No edema. no swelling PSYCHIATRY: Alert and oriented X2, mood and affect normal. NERVOUS SYSTEM: Cranial N 2-12 grossly normal. Diffuse weakness, right upper e xtremity in sling, fingers warm,moves easily, positive radial pulse. Skin: no rash - Labs CBC & Chem 7: 07/22/19 18:26 07/21/19 10:30 Labs: Abnormal Lab Results - Last 24 Hours (Table) 07/22/19 Range/Units 18:26 RBC 3.70 L (3.80-5.40) m/uL Lymphocytes # 0.7 L (1.0-4.8) k/uL Assessment and Plan Assessment: Status post Right shoulder hemiarthroplastypress-fit. History of recurrent multiple right dislocations, currently irreducible. CT reported large humeral head defect. Seizure disorder Dementia, possible Parkinson's disease Gait dysfunction, uses a walker Left ankle fracture, wears a left boot Vagus nerve stimulator Left hippocampus removed Anxiety Depression Schizoaffective disorder Former nicotine dependence, 1 pack per day 35 years Coronavirus not detected Plan: Continue on current medication regime ,monitoring and symptomatic treatment. Senokot as added to med regime. Pain management, anticoagulation as per primary. Discharge planning in progress as per primary. Staff reports concerned as he works all day and patient will not have assistance at home. Patient is right-handed and does need assistance performing ADLs. Soc ial work assisting with discharge planning. Further recommendations to follow. The impression and plan of care has been dictated as directed. : I performed a history and examination of this patient, discussed the same with the dictator. I agree with the dictator's note ,documented as a scribe. Any additional findings or plans will be noted.
[2019-07-23] MEDS ORDERED: SENNOSIDES-DOCUSATE SODIUM 1 EACH TAB PO SCH (11:15)
[2019-07-26] MEDS ORDERED: NON FORMULARY DRUG (Alendronate Sodium [Fosamax] 70 MG) PO SCH (09:00)
== END 2019-07-23 18:52 | DRG 483 ==
LOC: EC 09:54 → 5NMEDONC 11:26 → OBSVTOIN 07-22 08:53
PROVIDERS: ADMIT Orthopaedic Surgery; ATTEND Orthopaedic Surgery
PROC: 0RRJ0J6 Replacement of Right Shoulder Joint with Synthetic Substitute, Humeral Surface, Open Approach (ICD-10-PCS; principal; 2019-07-22 07:00)
DX: M24.411 Recurrent dislocation, right shoulder (principal); G40.909 Epilepsy, unspecified, not intractable, without status epilepticus; F32.9 Major depressive disorder, single episode, unspecified; F25.9 Schizoaffective disorder, unspecified; R26.9 Unspecified abnormalities of gait and mobility; K59.00 Constipation, unspecified; F03.90 Unspecified dementia, unspecified severity, without behavioral disturbance, psychotic disturbance, mood disturbance, and anxiety; F41.9 Anxiety disorder, unspecified; S42.291G Other displaced fracture of upper end of right humerus, subsequent encounter for fracture with delayed healing; Z11.59 Encounter for screening for other viral diseases; Z79.899 Other long term (current) drug therapy; Z87.891 Personal history of nicotine dependence; Z79.83 Long term (current) use of bisphosphonates; Z98.890 Other specified postprocedural states; Z86.61 Personal history of infections of the central nervous system; Z80.9 Family history of malignant neoplasm, unspecified
CPT/HCPCS: 36415; 64415; 76942; 80053; 85025; 85610; 85730; 87635; 88300; 93005; 96374; 99285

== ENCOUNTER → 2020-01-21 | Outpatient (CLI) | payer BC, MEDICARE ==
[2020-01-21 09:47] LABS: Basophils % (A) 1 %; Eosinophils # (A) 0.1 k/uL (0-0.7); Eosinophils % (A) 2 %; HCT 40.2 % (34.0-46.0); HGB 13.1 gm/dL (11.4-16.0); Lymphocytes # (A) 1.9 k/uL (1.0-4.8); Lymphocytes % (A) 31 %; MCH 31.4 pg (25.0-35.0); MCHC 32.7 g/dL (31.0-37.0); Monocytes # (A) 0.4 k/uL (0-1.0); Monocytes % (A) 6 %; Neutrophils # (A) 3.6 k/uL (1.3-7.7); Neutrophils % (A) 58 %; Platelet Count 307 k/uL (150-450); RBC 4.19 m/uL (3.80-5.40); RDW 13.1 % (11.5-15.5); WBC 6.2 k/uL (3.8-10.6)
[2020-01-21 15:20] LABS: ALT <8 U/L (8-44); AST 16 U/L (13-35); African American GFR (CKD) 66.6 (60.0-200.0); Albumin/Globulin Ratio 1.45 (1.60-3.17); Alkaline Phosphatase 85 U/L (41-126); Calcium 9.4 mg/dL (8.7-10.3); Carbon Dioxide 30.2 mmol/L (21.6-31.8); Chloride 102 mmol/L (96-109); Globulin 2.9 g/dL (1.6-3.3); Glucose 83 mg/dL (70-110); Non-African American GFR(CKD) 57.4 (60.0-200.0); Sodium 138 mmol/L (135-145); Total Bilirubin 0.4 mg/dL (0.2-1.2); Total Protein 7.1 g/dL (6.2-8.2)
== END | disposition home or self-care (01) ==
LOC: LABWHC1 08:44
PROVIDERS: ATTEND Family Medicine
DX: Z01.89 Encounter for other specified special examinations (principal)
CPT/HCPCS: 36415; 80053; 84443; 85025

== ENCOUNTER → 2020-02-09 | Outpatient (CLI) | payer BC, MEDICARE ==
--- NOTE | 2020-02-09 11:44 | MM ---
Reason for exam: screening (asymptomatic). Last mammogram was performed 2 years and 7 months ago. History: Patient is postmenopausal. Family history of breast cancer in mother. Physical Findings: A clinical breast exam by your physician is recommended on an annual basis and results should be correlated with mammographic findings. MG Screening Mammo w CAD Bilateral CC and MLO view(s) were taken. Prior study comparison: July 03, 2017, bilateral MG 3d screening mammo w/cad. September 01, 2011, bilateral digital screening mammo w/CAD. The breast tissue is heterogeneously dense. This may lower the sensitivity of mammography. There is no discrete abnormality. Asymmetric breast tissue right breast, stable. Left axillary pacemaker redemonstrated. ASSESSMENT: Benign, BI-RAD 2 RECOMMENDATION: Routine screening mammogram of both breasts in 1 year.
== END | disposition home or self-care (01) ==
LOC: RADMAMWWP 10:29
PROVIDERS: ATTEND Family Medicine
DX: Z12.31 Encounter for screening mammogram for malignant neoplasm of breast (principal)
CPT/HCPCS: 77067

== ENCOUNTER → 2020-08-19 | Outpatient (CLI) | payer BC, MEDICARE ==
--- NOTE | 2020-08-19 15:40 | XR ---
EXAMINATION TYPE: XR knee limited RT DATE OF EXAM: 08/19/2020 CLINICAL HISTORY: Knee pain TECHNIQUE: 2 views of the right knee are obtained. COMPARISON: None. FINDINGS: There is no acute fracture/dislocation evident in right knee. Tricompartmental osteophytosis and subc hondral sclerosis is noted in all 3 compartments. IMPRESSION: Tricompartmental degenerative changes.
== END | disposition home or self-care (01) ==
LOC: RADXRMAIN 14:49
PROVIDERS: ATTEND Family Medicine
DX: M17.11 Unilateral primary osteoarthritis, right knee (principal)

== ENCOUNTER → 2020-12-09 | Outpatient (CLI) | payer BC, MEDICARE ==
[2020-12-10 05:49] LABS: African American GFR (CKD) 75.7 (60.0-200.0); Anion Gap 16.8 mmol/L (4.00-12.00); BUN/Creat Ratio 11.74 Ratio (12.00-20.00); Blood Urea Nitrogen 10.5 mg/dL (9.0-27.0); Calcium 9.6 mg/dL (8.7-10.3); Carbon Dioxide 22.1 mmol/L (21.6-31.8); Non-African American GFR(CKD) 65.3 (60.0-200.0); Potassium 4.9 mmol/L (3.5-5.5)
== END | disposition home or self-care (01) ==
LOC: LABWHC1 15:09
PROVIDERS: ATTEND Family Medicine
DX: G40.909 Epilepsy, unspecified, not intractable, without status epilepticus (principal); E55.9 Vitamin D deficiency, unspecified
CPT/HCPCS: 36415; 80048; 82306

== ENCOUNTER 2021-12-20 21:57 | Emergency (ER) | payer MEDICARE ==
[2021-12-20 22:02] VITALS: BP 106/69; PULSE 76; RESP 18; TEMP 97.7
[2021-12-20] MEDS ORDERED: DIPH,PERTUS(ACELL)TETVAC-LF 0.5 ML VIAL IM ONE (22:15)
--- NOTE | 2021-12-20 22:39 | XR ---
EXAMINATION TYPE: XR forearm RT DATE OF EXAM: 12/20/2021 COMPARISON: NONE HISTORY: Pain TECHNIQUE: 2 views FINDINGS: There is some deformity of the distal radius and ulna that is likely related to old healed fracture. No definite acute fracture seen. The elbow joint is intact. IMPRESSION: There is probably old healed fractures distal radius and ulna. No acute fracture seen.
--- NOTE | 2021-12-20 22:45 | ED ---
General Adult HPI <Dana Tamayo - Last Filed: 12/21/21 01:32> - General Source: family, RN notes reviewed, old records reviewed Mode of arrival: wheelchair Limitations: no limitations <Percy Harmon - Last Filed: 12/21/21 01:46> - General Chief complaint: Extremity Injury, Upper Stated complaint: Right arm injury,fall Time Seen by Provider: 12/20/21 22:06 - History of Present Illness Initial comments: Patient is a 71-year-old female with past medical history remarkable for seizure disorder who presents emergency Department after mechanical fall at home. Ambulates with a walker at home. Fell earlier today, and hit her arm on the metal part of the brake on her walker. She struck the outside part of her right arm. Patient states she did peel-away a piece of skin. Was doing well, however when they removed the dressing earlier, skin tear did start to bleed. They attempted to do a pressure dressing but it did soak through. They came to the emergency department for further evaluation at this time. Patient is not on blood thinners. Denies hitting her head earlier. Denies loss of consciousness. Denies any injuries other than the laceration to the arm. Has no belly pain, chest pain, shortness of breath. Denies having a seizure earlier. Presents for further evaluation at this time over concern for the bleeding from the wound. It is currently wrapped. (Percy Harmon) - Related Data Home Medications Medication Instructions Recorded Confirmed Citalopram Hydrobromide [CeleXA] 20 mg PO DAILY 03/21/15 07/21/19 Ziprasidone [Geodon] 80 mg PO BID 03/21/15 07/21/19 Atorvastatin [Lipitor] 20 mg PO DAILY 11/16/15 07/21/19 Carbidopa-Levodopa 25-100 mg 2 tab PO TID 02/01/16 07/21/19 [Sinemet 25-100 mg] Alendronate Sodium [Fosamax] 70 mg PO SA 11/21/18 07/21/19 Zonisamide [Zonegran] 200 mg PO HS 11/21/18 07/21/19 Docusate [Colace] 100 mg PO BID 07/21/19 07/21/19 cloBAZam [Clobazam] 30 mg PO DAILY 07/21/19 07/21/19 lamoTRIgine [LaMICtal Xr] 300 mg PO BID 07/21/19 07/21/19 Previous Rx's Medication Instructions Recorded Acetaminophen Tab [Tylenol] 650 mg PO Q6HR PRN tab 07/23/19 Aspirin 325 mg PO DAILY #30 tab 07/23/19 Hydrocodone/Acetaminophen [Lakeland 1 each PO Q6HR PRN #28 tab 07/23/19 5-325] Hydrocodone/Acetaminophen [[place] 1 tab PO Q6HR PRN 3 Days #12 tab 07/23/19 5-325] LORazepam [Ativan] 1 mg PO DAILY PRN #3 tab 07/23/19 Pantoprazole [Protonix] 40 mg PO DAILY #1 tablet. 07/23/19 Sennosides-Docusate Sodium 2 each PO BID tab 07/23/19 [Senokot-S] Allergies Allergy/AdvReac Type Severity Reaction Status Date / Time No Known Allergies Allergy Verified 12/20/21 22:02 Review of Systems ROS Other: All systems not noted in ROS Statement are negative. <Dana Tamayo - Last Filed: 12/21/21 01:32> ROS Other: All systems not noted in ROS Statement are negative. <Percy Harmon - Last Filed: 12/21/21 01:46> ROS Statement: Those systems with pertinent positive or pertinent negative responses have been documented in the HPI. Review of Systems: CONST: Denies fever EYES: Denies blurry vision ENT: Denies nasal congestion C/V: Denies Chest pain RESP: Denies shortness of breath GI: Denies abdominal pain : Denies dysuria SKIN: Endorses right arm laceration MSK: Denies joint pain. NEURO: Denies headache (Percy Harmon) Past Medical History Past Medical History: Seizure Disorder Additional Past Medical History / Comment(s): HX OF SEIZURES FOLLOWING ENCEPHALITIS (1988), SHORT TERM MEMORY LOSS, POSSIBLE PARKINSONS. HX OF SEIZURES WITH FALLS . , LAST SEIZURE 01/25/16 WITH FALL AND LEFT ANKLE FX., WEARING A BOOT LEFT FOOT. , USES WALKER WITH WHEELS, STATES LEFT LEG BRUISED. , WEAKNESS LEFT SIDE. , STATES OCCASIONALLY NEEDS TO YAWN TO CATCH HER BREATH ., STATES NO MRI'S DUE TO VAGUS NERVE STIMULATOR IMPLANT. History of Any Multi-Drug Resistant Organisms: None Reported Past Surgical History: Orthopedic Surgery Additional Past Surgical History / Comment(s): VAGUS NERVE STIMULATOR LEFT CHEST (BATTERY ), LEFT HIPPOCAMPUS REMOVED. Past Anesthesia/Blood Transfusion Reactions: No Reported Reaction Additional Past Anesthesia/Blood Transfusion Reaction / Comment(s): HX OF BLOOD TRANSFUSION - NO REACTION Past Psychological History: Anxiety, Depression, Schizoaffective Disorder Smoking Status: Never smoker Past Alcohol Use History: None Reported Past Drug Use History: None Reported - Past Family History Mother Family Medical History: Cancer Father Family Medical History: Cancer <Percy Harmon - Last Filed: 12/21/21 01:46> General Exam Limitations: no limitations <Percy Harmon - Last Filed: 12/21/21 01:46> - General Exam Comments Initial Comments: General: Appears in no acute distress. HEAD: Normal with no signs of head trauma. EYES: EOMI ENT: Hearing grossly intact RESPIRATORY: Clear breath sounds bilaterally. No respiratory distress. C/V: Regular rate and rhythm. S1 and S2 auscultated. Peripheral pulses 2+ and intact throughout. ABD: Abdomen is soft, nondistended. Nontender to palpation. EXT: Normal range of motion, no obvious deformity. Neurovascular intact. SKIN: Right forearm is wrapped with a pressure dressing at this time. It was just wrapped by nursing staff in triage. NEURO: Alert and oriented 4. No focal deficits. (Percy Harmon) Course Vital Signs 12/20/21 21:59 Temperature 97.7 F Pulse Rate 76 Respiratory 18 Rate Blood Pressure 106/69 O2 Sat by Pulse 98 Oximetry Procedures - Laceration Laceration #1 Site: upper extremity (right forearm) Size (cm): 4 Description: irregular Depth: simple, single layer Anesthetic Used: lidocaine 1% Anesthesia Technique: local infiltration Amount (mls): 3 Type of Sutures: nylon Size of Sutures: 5-0 Number of Sutures: 6 Technique: simple, interrupted Complications: bleeding (Pressure dressing applied after loose suture closure and gelfoam) Patient Tolerated Procedure: well <Dana Tamayo - Last Filed: 12/21/21 01:32> Medical Decision Making <Percy Harmon - Last Filed: 12/21/21 01:46> - Medical Decision Making Based on the patient's presentation and physical exam, I am concerned for his skin laceration for skin tear. We will obtain an x-ray of the right arm to begin with. Keep the pressure dressing on for now. We'll unwrap it after the x-ray. She will receive a tetanus booster. She declines analgesic medications at this time. She was in agreement this plan. Vital signs within acceptable limits. X-ray was obtained and revealed No evidence of foreign bodies. No acute fractures. Patient's wound will evaluated and closed by an assisting mid-level provider. We both evaluated the patient's wound together. It is oozing. It is deep with irregular borders. She does have fragile skin. Likely will not be able to fully sutured shut. We'll use a combination of Dermabond, suturing, as well as pressure dressing to treat the wound. Please see her procedure note for further details. Patient tolerated the procedure well. Pressure dressing is applied. Bleeding is controlled. Patient already has a follow-up appointment with her PCP tomorrow, and I recommended that they make that appointment to further evaluate the wound. I recommended they keep the pressure dressing on until that time. They were in agreement this plan. Patient's right upper extremity distal to the laceration has good pulses, good color, and no sensory deficits. Patient will be discharged home at this time. I instructed the patient to follow up with their PCP in the next 1-3 days. I explained that the patient should return to the emergency department if they experience any worsening symptoms. Strict return precautions were discussed with the patient. The patient expressed understanding of these instructions. I answered all questions that the patient had. The patient was discharged home in good condition with their prescriptions and follow up information. (Percy Harmon) Disposition <Dana Tamayo - Last Filed: 12/21/21 01:32> Is patient prescribed a controlled substance at d/c from ED?: No Time of Disposition: 00:10 <Percy Harmon - Last Filed: 12/21/21 01:46> Clinical Impression: Laceration, Fall Disposition: HOME SELF-CARE Condition: Good Instructions (If sedation given, give patient instructions): Laceration (ED) Referrals: Javier Looney MD [Primary Care Provider] - 1-2 days
[2021-12-20] MEDS ORDERED: TOPICAL SKIN ADHESIVE 1 EACH AMP TOPICAL ONE (23:07)
[2021-12-20] MEDS ORDERED: LIDOCAINE 1% INJ 10MG/ML (20 ML MDV) SQ ONE (23:08)
[2021-12-20] MEDS ORDERED: GELATIN SPONGE,ABSORB (LARGE) 1 EACH SPONGE TOPICAL STA (23:42)
== END 2021-12-21 00:40 | disposition home or self-care (01) ==
LOC: EC 21:57
DX: S51.811A Laceration without foreign body of right forearm, initial encounter (principal); Z23 Encounter for immunization; W18.39XA Other fall on same level, initial encounter; Y92.009 Unspecified place in unspecified non-institutional (private) residence as the place of occurrence of the external cause
CPT/HCPCS: 12002; 90471; 90715; 99283

== ENCOUNTER → 2022-10-31 | Outpatient (CLI) | payer MEDICARE ==
--- NOTE | 2022-11-01 10:09 | MM ---
Reason for Exam: Clinical finding. Last mammogram was performed 2 year(s) and 8 month(s) ago. Indicated Problems: Palpable abnormality. Patient History: Menarche at age 16. First Full-Term at age 17. Postmenopausal. Mother had breast cancer. Risk Values: Macy 5 year model risk: 3.0%. NCI Lifetime model risk: 7.7%. Prior Study Comparison: 07/03/2017 Bilateral Screening Mammogram, [facility]. 02/09/2020 Bilateral Screening Mammogram, [facility]. Tissue Density: The breast tissue is heterogeneously dense. This may lower the sensitivity of mammography. Findings: Analyzed By CAD. Stable benign calcifications. Left pacer device. Overall Assessment: Incomplete: need additional imaging evaluation, BI-RAD 0 Management: Diagnostic Breast Ultrasound of the left breast. Electronically signed and approved by: Reynold Kelsey M.D. Radiologis
--- NOTE | 2022-11-01 10:09 | USB ---
Reason for Exam: Clinical finding. Patient History: Menarche at age 16. First Full-Term at age 17. Postmenopausal. Mother had breast cancer. Risk Values: Macy 5 year model risk: 3.0%. NCI Lifetime model risk: 7.7%. Prior Study Comparison: 09/01/2011 Bilateral Screening Mammogram, [facility]. 07/03/2017 Bilateral Screening Mammogram, [facility]. 02/09/2020 Bilateral Screening Mammogram, [facility]. Findings: Left breast ultrasound demonstrates no masses seen. Overall Assessment: Benign, BI-RAD 2 Management: Screening Mammogram of both breasts in 1 year. A clinical breast exam by your physician is recommended on an annual basis and results should be correlated with mammographic findings. This exam should not preclude additional follow-up of suspicious palpable abnormalities. Results were given to the patient verbally at the time of exam. Electronically signed and approved by: Reynold Kelsey M.D. Radiologis
== END | disposition home or self-care (01) ==
LOC: RADMAMWWP 13:26
PROVIDERS: ATTEND Family Medicine
DX: N63.0 Unspecified lump in unspecified breast (principal); Z78.0 Asymptomatic menopausal state; Z80.3 Family history of malignant neoplasm of breast; Z85.3 Personal history of malignant neoplasm of breast
CPT/HCPCS: 77066; 76642; G0279; 77062

== ENCOUNTER → 2023-04-11 | Outpatient (CLI) | payer MEDICARE | END | disposition home or self-care (01) | LOC: LABPAT 13:07 | PROVIDERS: ATTEND Orthopaedic Surgery | DX: Z01.812 Encounter for preprocedural laboratory examination (principal); M17.11 Unilateral primary osteoarthritis, right knee; Z22.322 Carrier or suspected carrier of Methicillin resistant Staphylococcus aureus | CPT/HCPCS: 87070 ==

== ENCOUNTER → 2023-05-03 | Outpatient (CLI) | payer MEDICARE ==
[~2023-05-03] MED LIST: SODIUM CHLORIDE 0.9% 500 ML 500 ML in EMPTY BAG 1 BAG IV PRN; ZOLEDRONIC ACID 5 MG in SODIUM CHLORIDE 0.9% 100 ML IV NR
[2023-05-03] MEDS: ZOLEDRONIC ACID 5 MG in SODIUM CHLORIDE 0.9% 100 ML IV NR (14:01)
[2023-05-03] MEDS: SODIUM CHLORIDE 0.9% 500 ML 500 ML in EMPTY BAG 1 BAG IV PRN (14:01)
[2023-05-03 14:24] VITALS: BP 96/61; PULSE 79; RESP 16; TEMP 97.6
[2023-05-03 14:50] LABS: Basophils # (A) 0.1 k/uL (0-0.2); Basophils % (A) 1 %; Eosinophils # (A) 0.1 k/uL (0-0.7); Eosinophils % (A) 2 %; HCT 40.6 % (34.0-46.0); HGB 13.1 gm/dL (11.4-16.0); Lymphocytes % (A) 37 %; MCH 31.9 pg (25.0-35.0); MCHC 32.3 g/dL (31.0-37.0); MCV 98.7 fL (80.0-100.0); Mean Platelet Volume 8.5; Monocytes # (A) 0.3 k/uL (0-1.0); Monocytes % (A) 7 %; Neutrophils # (A) 2.6 k/uL (1.3-7.7); Neutrophils % (A) 51 %; Platelet Count 231 k/uL (150-450); RBC 4.12 m/uL (3.80-5.40); RDW 13.1 % (11.5-15.5); WBC 5.2 k/uL (3.8-10.6)
[2023-05-03 15:09] LABS: ALT <6 U/L (4-34); AST 19 U/L (14-36); African American GFR (CKD) >90 (>60 ml/min/1.73 sqM); Alkaline Phosphatase 81 U/L (38-126); Anion Gap 4 mmol/L; Blood Urea Nitrogen 8 mg/dL (7-17); Calcium 8.6 mg/dL (8.4-10.2); Carbon Dioxide 28 mmol/L (22-30); Chloride 104 mmol/L (98-107); Glucose 76 mg/dL (74-99); Non-African American GFR(CKD) 88 (>60 ml/min/1.73 sqM); Potassium 4.4 mmol/L (3.5-5.1); Sodium 136 mmol/L (137-145); Total Bilirubin 0.4 mg/dL (0.2-1.3); Total Protein 7.1 g/dL (6.3-8.2)
[2023-05-03 15:13] LABS: Prothrombin Time 11.2 sec (10.0-12.5)
== END ==
LOC: PROCWHC3 12:53
PROVIDERS: ATTEND Family Medicine
DX: Z01.818 Encounter for other preprocedural examination (principal); M81.0 Age-related osteoporosis without current pathological fracture
CPT/HCPCS: 80053; 85025; 85610; 96365; J3489

== ENCOUNTER 2023-05-16 11:18 | Day surgery (SDC) | payer MEDICARE ==
--- NOTE | 2023-05-14 08:30 | P.HPOR ---
History of Present Illness H&P Date: 05/14/23 Chief Complaint: Right knee pain The patient is a 72-year-old female who presents with progressive right knee pain for the past several years worsening recently. She's having pain with weightbearing activities. She notes intermittent giving way. She does use a walker. She's tried medications along with injections without much relief. Review of Systems Negative except as in HPI Past Medical History Past Medical History: Hyperlipidemia, Memory Impairment, Osteoarthritis (OA), Seizure Disorder Additional Past Medical History / Comment(s): HX OF SEIZURES FOLLOWING ENCEPHALITIS (1988), SHORT TERM MEMORY LOSS, POSSIBLE PARKINSONS. LAST SEIZURE month ago approx., has fallen w/seizures in past, balance problem, USES WALKER WITH WHEELS, WEAKNESS LEFT SIDE., STATES NO MRI'S DUE TO VAGUS NERVE STIMULATOR IMPLANT. neuropathy feet History of Any Multi-Drug Resistant Organisms: None Reported Past Surgical History: Joint Replacement, Orthopedic Surgery Additional Past Surgical History / Comment(s): VAGUS NERVE STIMULATOR LEFT CHEST (BATTERY ), LEFT HIPPOCAMPUS REMOVED. ORIF left ankle, right shoulder hemiarthroplasty 2019 Past Anesthesia/Blood Transfusion Reactions: Previous Problems w/ Anesthesia Additional Past Anesthesia/Blood Transfusion Reaction / Comment(s): HX OF BLOOD TRANSFUSION - NO REACTION, difficult IV start, after shoulder surg. had hallucinations that was thought to be from after effects of anesthesia & no visitors @that time due to covid Smoking Status: Former smoker - Past Family History Mother Family Medical History: Cancer Father Family Medical History: Cancer Medications and Allergies Home Medications Medication Instructions Recorded Confirmed Type Citalopram Hydrobromide [CeleXA] 20 mg PO HS 03/21/15 05/10/23 History Ziprasidone [Geodon] 80 mg PO BID 03/21/15 05/10/23 History Atorvastatin [Lipitor] 20 mg PO DAILY 11/16/15 05/10/23 History Carbidopa-Levodopa 25-100 mg 3 tab PO QAM 02/01/16 05/10/23 History [Sinemet 25-100 mg] Zonisamide [Zonegran] 200 mg PO HS 11/21/18 05/10/23 History Docusate [Colace] 100 mg PO DAILY 07/21/19 05/10/23 History cloBAZam [Clobazam] 30 mg PO HS 07/21/19 05/10/23 History Acetaminophen Tab [Tylenol] 650 mg PO Q6HR PRN tab 07/23/19 05/10/23 Rx Carbidopa-Levodopa 25-100 mg 2 each PO 1400 05/03/23 05/10/23 History [Sinemet 25-100] Pregabalin 100 mg PO HS 05/03/23 05/10/23 History Vit C/E/Zn/Coppr/Lutein/Zeaxan 1 each PO DAILY 05/03/23 05/10/23 History [Preservision Areds 2 Softgel] lamoTRIgine 200 mg PO TID 05/03/23 05/10/23 History Carbidopa-Levodopa 25-100 mg 2 each PO HS 05/10/23 05/10/23 History [Sinemet 25-100] LORazepam [Ativan] 1 mg PO DAILY PRN 05/10/23 05/10/23 History Allergies Allergy/AdvReac Type Severity Reaction Status Date / Time No Known Allergies Allergy Verified 05/10/23 10:43 Physical Examination - Knee right Appearance: effusion Effusion grade: grade 1 Valgus alignment in stance: 5 degrees Tenderness with palpation: anterior, lateral Pain: throughout ROM Gait: limping ROM: extension: -15 degrees ROM: flexion: 90 degrees Crepitus with motion: Yes Strength: extension: 5/5 Strength: flexion: 5/5 Meniscal tests: lateral meniscal tests: positive, lateral joint line pain: positive Results The patient is well-developed well-nourished female approximately 5 foot 5, 150 pounds of mesomorphic habitus. HEENT exam is nonfocal, neck supple. She has painless passive motion of the right hip. Straight leg raise is negative. She is tender about the anterior aspect of the right knee along with lateral joint line. She has genu valgum alignment. Collaterals are stable, Corinne was negative, Charisma's elicits lateral pain. Her distal neurovascular exam appears intact in the right lower extremity. - Diagnostic results Knee x-ray: image reviewed (3 views of the right knee obtained in the office show severe lateral and patellofemoral compartment osteoarthrosis with subchondral sclerosis and [id number] changes.) Assessment and Plan Assessment: Right knee severe lateral and patellofemoral compartment osteoarthrosis Seizure disorder Possible Parkinson's Plan: I talked to the patient and her family at length regarding her condition along with treatment options. At this point she is quite limited because of pain related to her right knee secondary to osteoarthrosis despite attempted conservative measures. After thorough discussion they opt to proceed with surgery. We will plan to proceed with right total knee arthroplasty. Risks and benefits were discussed at length in layman's terms. We will institute DVT prophylaxis postoperatively.
[~2023-05-16 11:18] MED LIST changes: -SODIUM CHLORIDE 0.9% 500 ML 500 ML in EMPTY BAG 1 BAG IV PRN; +TRANEXAMIC 1,000 MG/100ML-NACL 1,000 MG in SALINE 1 100ML.BAG IVPB PRN; -ZOLEDRONIC ACID 5 MG in SODIUM CHLORIDE 0.9% 100 ML IV NR
[2023-05-16] MEDS ORDERED: HYDROmorphone 0.5 MG/0.5 ML SYRINGE IVP PRN ×3 (11:45→14:27)
[2023-05-16] MEDS ORDERED: LIDOCAINE 1% (10MG/ML) FOR IV START INTRADERMA PRN (11:45)
[2023-05-16] MEDS: MELOXICAM 7.5 MG TAB PO PRN (12:23)
[2023-05-16] MEDS: ACETAMINOPHEN TAB 500 MG TAB PO PRN (12:23)
[2023-05-16] MEDS: LACTATED RINGERS 1,000 ML IV SCH (12:38)
[2023-05-16] MEDS: ONDANSETRON 4 MG/2 ML VIAL IVP ONE (12:38)
[2023-05-16] MEDS: fentaNYL (PF) 50 MCG/ML 2 ML AMP IVP ONE (12:40)
[2023-05-16] MEDS: MIDAZOLAM 2 MG/2 ML VIAL IVP ONE (12:40)
[2023-05-16] MEDS ORDERED: ROPIVACAINE 5 MG/ML 30 ML VIAL ONE (12:54)
[2023-05-16] MEDS ORDERED: LIDOCAINE 1% INJ 10MG/ML (20 ML MDV) ONE (12:54)
[2023-05-16] MEDS ORDERED: PROPOFOL 10 MG/ML 20 ML VIAL IV ONE (12:54)
[2023-05-16] MEDS ORDERED: fentaNYL (PF) 50 MCG/ML 2 ML AMP ONE (12:54)
[2023-05-16] MEDS ORDERED: SUCCINYLCHOLINE CHLORIDE 200 MG/10 ML VIAL IV ONE (12:54)
[2023-05-16] MEDS ORDERED: SODIUM CHLORIDE 0.9% (PF) 10 ML VIAL ONE (12:54)
--- NOTE | 2023-05-16 13:01 | P.ANPRN ---
Procedure Note - Anesthesia - Nerve Block Performed Right Adductor Canal Infusion Time Out Performed: Yes (1239) Date of Procedure: 05/16/23 Procedure Start Time: 12:40 Procedure Stop Time: 12:46 Location of Patient: PreOp Indication: Acute Post-Operative Pain, Requested by Surgeon Specifically requested for management of pain by : Virgilio Cooper Sedation Type: Sedate with meaningful contact maintained Preparation: Sterile Prep, Sterile Dressing Position: Supine Catheter Depth at Skin (cm): 8 Catheter: Indwelling Needle Types: Pajunk Needle Gauge: 18 Ultrasound used to visualize needle placement: Yes Ultrasound used to observe medication spread: Yes Injectate: 0.5% Ropivacaine (see comment for volume) (15cc +10cc nacl pf) Blood Aspirated: No Pain Paresthesia on Injection Noted: No Resistance on Injection: Normal Image Stored and Saved: Yes Events: Uneventful and Well Tolerated
--- NOTE | 2023-05-16 13:02 | P.ANPRN ---
Procedure Note - Anesthesia - Nerve Block Performed Right iPack Single Time Out Performed: Yes (1239) Date of Procedure: 05/16/23 Procedure Start Time: 12:47 Procedure Stop Time: 12:51 Location of Patient: PreOp Indication: Acute Post-Operative Pain, Requested by Surgeon Specifically requested for management of pain by DrRadha: Virgilio Cooper Sedation Type: Sedate with meaningful contact maintained Preparation: Sterile Prep Position: Supine Catheter: None Needle Types: Pajunk Needle Gauge: 21 Ultrasound used to visualize needle placement: Yes Ultrasound used to observe medication spread: Yes Injectate: 0.5% Ropivacaine (see comment for volume) (15cc + 10cc nacl pf) Blood Aspirated: No Pain Paresthesia on Injection Noted: No Resistance on Injection: Normal Image Stored and Saved: Yes Events: Uneventful and Well Tolerated
[2023-05-16] MEDS: ceFAZolin 1,000 MG in SODIUM CHLORIDE 0.9% 1,000 ML IRRIGATION ONE (13:31)
[2023-05-16] MEDS ORDERED: hydrOXYzine pamoate 25 MG CAP PO PRN (14:27)
[2023-05-16] MEDS ORDERED: NALOXONE 0.4 MG/ML 1 ML VIAL IV PRN (14:27)
[2023-05-16] MEDS ORDERED: MAGNESIUM HYDROXIDE 2,400 MG/30 ML CUP PO PRN (14:27)
--- NOTE | 2023-05-16 14:57 | P.OP ---
Date of Procedure: 05/16/23 Preoperative Diagnosis: Right knee severe tricompartmental osteoarthrosis Postoperative Diagnosis: Same Procedure(s) Performed: Right total knee arthroplastycementedposterior stabilized Implants: Depuy Attune size 5 narrow cemented femoral component, size 5 cemented tibial component, 11 mm articular surface, 35 mm cemented patellar component. This is a posterior stabilized implant. Anesthesia: [facility] [employer] Surgeon: Virgilio Cooper Administrative Services Specialist #1: Silas Cuevas Estimated Blood Loss (ml): 50 Pathology: none sent Condition: stable Disposition: PACU Indications for Procedure: The patient is a 72-year-old female who presents with progressive right knee pain secondary to osteoarthrosis despite conservative measures. A discussion of the risks and benefits of operative intervention versus continued conservative measures was made with patient. She opted to proceed with surgery. Operative risks to include infection, neurovascular injury, development of blood clots, possible component loosening/failure and need for subsequent procedures was discussed. Informed consent was obtained. Operative Findings: As below Description of Procedure: The patient was brought to the operating room, and after induction of spinal anesthesia the right lower extremity was prepped and draped in a normal fashion. The tourniquet was inflated to 270 mm marker. A longitudinal incision extending 3 finger breaths above the superior pole of patella extending to the medial aspect the tibial tubercle was then made. The skin and subcutaneous tissues were divided sharply. Electrocautery was used for hemostasis. A medial parapatellar arthrotomy was performed. The medial soft tissues to include the superficial and deep portions of the medial collateral ligament were elevated irving bperiosteally. The patella was everted. A portion of the retropatellar fat pad was excised sharply. The anterior cruciate ligament was sacrificed. Blunt retractors were placed. A starting hole was made in the distal femur 1 cm anterior to the posterior cruciate ligament origin. An intramedullary femoral guide was then inserted planning on 5 valgus distal cut with 9 mm distal resection. The cutting block was pinned in place. The distal cut was then made. The posterior referencing sizing guide was utilized. I felt size 5 narrow was most appropriate. 3 of external rotation was built into the system and verified off the trans-epicondylar axis and the posterior condyles. The cutting block was pinned in place. The anterior, posterior, and chamfer cuts then made. Bone fragments were removed. The intercondylar guide was placed and the notch cut was made with a sagittal saw. The bone block was removed in one fragment. The trial component was then placed. There is good anterior to posterior and medial to lateral fit. The distal peg holes were drilled. The trial component was removed. Attention was then paid towards preparing the proximal tibia. An extra medullary guide was utilized in line with the tibial shaft and second metatarsal distally. I planned on 1 mm resection from the lateral compartment. The cutting block was pinned in place. The proximal tibial cut was then made. The bone was removed in one fragment. The remnants of the medial and lateral menisci were excised at the capsular junction with electrocautery. The tibia sized most appropriately at size 5. The trial femoral and tibial components were placed along with a 11 mm articular surface. I was able to obtain full flexion and extension with internal and external rotation. After several flexion and extension cycles, the tibial rotation was marked with electrocautery line with the medial one third of the tibial tubercle. Attention was then paid towards preparing the patella. A patella reamer was utilized taking stem to 14 mm of bone stock. A good flush cut was made. The patella sized most appropriately 35 mm. The peg holes were drilled. The trial components placed. I had good patellofemoral tracking with no hands technique. The trial components were then removed. The tibia was prepared in the appropriate rotation with appropriate drill and keel punch. The posterior osteophytes were removed with a curved osteotome. The flexion and extension gaps were checked and felt to be symmetric at 11 mm. A trial components were then removed. The bony surfaces were prepared with pulsatile lavage and dried. The tibial component was then cemented place was fully seated. Excess cement was removed. The femoral component cemented place and was fully seated. Excess cement was removed. The trial 11 mm articular surface was placed and the knee was put in full extension. The patella component was cemented place. After the cement had sufficiently hardened, the knee was again taken through a range of motion. Again I was able to obtain full flexion and extension with varus and valgus stress. The trial 11 mm articular surface was removed and the final one inserted. This was fully seated. Care was taken to avoid any soft tissue interposition. Pulsatile lavage was again utilized. The medial parapatellar arthrotomy was closed with #2 Ethibond suture. The tourniquet was deflated with approximately 60 minutes total tourniquet time. Final hemostasis was obtained with the cautery. There was minimal bleeding therefore a deep drain was not placed. The subcutaneous tissues were reapproximated with interrupted 2-0 Vicryl sutures. The skin was reapproximated with 3-0 subcuticular strata fix suture. Skin tape and adhesive was applied. A sterile dressing was applied. The patient was awoken from sedation and transferred to recovery room in good condition. Blood loss was estimated at 50 mL. No complications were incurred. Sponge and needle counts were correct at the end of the case. Silas VIVAS assisted during the major components of this case to include exposure, bone resection, implantation, and closure.
--- NOTE | 2023-05-16 15:27 | XR ---
Two-view right knee. DATE: 05/16/2023. COMPARISON: 06/19/2022. Clinical history: Postop knee replacement. IMPRESSION: There is interval placement of a right total knee arthroplasty which appears aligned anatomically. Air and fluid is seen within the joint space compatible with recent surgery. No acute osseous abnormalities.
[2023-05-16] MEDS: ROPIVACAINE 1,100 MG, SODIUM CHLORIDE 0.9% 500 ML 330 ML, EMPTY PAIN BALL 1 EACH MISCELLANE PRN (15:36)
[2023-05-16] MEDS: lamoTRIgine 100 MG TAB PO STA (16:32)
[2023-05-16] MEDS ORDERED: LORazepam 1 MG TAB PO PRN (16:45)
[2023-05-16] MEDS: lamoTRIgine 100 MG TAB PO SCH (17:18)
[2023-05-16] MEDS: HYDROcodone/APAP 5-325MG 1 EACH TAB PO PRN (17:21)
[2023-05-16] MEDS: CITALOPRAM HYDROBROMIDE 20 MG TAB PO SCH (20:54)
[2023-05-16] MEDS: ZIPRASIDONE 80 MG CAP PO SCH (20:55)
[2023-05-16] MEDS: PREGABALIN 100 MG CAP PO SCH (20:55)
[2023-05-16] MEDS: SENNOSIDES-DOCUSATE SODIUM 1 EACH TAB PO SCH (20:55)
[2023-05-16] MEDS: ZONISAMIDE 100 MG CAP PO SCH (20:56)
[2023-05-16] MEDS: CARBIDOPA-LEVODOPA 25-100 MG 1 EACH TAB PO SCH (20:56)
[2023-05-16] MEDS ORDERED: PREGABALIN 100 MG CAP PO SCH (21:00)
[2023-05-16] MEDS ORDERED: lamoTRIgine 100 MG TAB PO SCH (22:00)
[2023-05-16] MEDS: NON FORMULARY DRUG (Clobazam [Clobazam] 20 MG Tablet) PO SCH (22:24)
[2023-05-16] MEDS: lamoTRIgine 100 MG TAB PO ONE (22:24)
[2023-05-16] MEDS: HYDROcodone/APAP 7.5-325MG 1 EACH TAB PO PRN (22:25)
[2023-05-17] MEDS: SODIUM CHLORIDE 0.9% 500 ML 500 ML IV ONE ×2 (01:48→10:29)
[2023-05-17] MEDS: DOCUSATE 100 MG CAP PO SCH (08:27)
[2023-05-17] MEDS: CARBIDOPA-LEVODOPA 25-100 MG 1 EACH TAB PO SCH ×2 (08:28→13:54)
[2023-05-17] MEDS: RIVAROXABAN 10 MG TAB PO SCH (08:28)
[2023-05-17] MEDS: ATORVASTATIN 20 MG TAB PO SCH (08:28)
--- NOTE | 2023-05-17 08:49 | P.PN ---
Progress Note - Text Progress Note Date: 05/17/23 Anesthesiology Postop day 1 status post total knee arthroplasty with adductor canal catheter. Patient doing well. VAS 4 out of 10rest above. Gross strength intact in lower extremity. Afebrile. Denies alterations in sensorium. Catheter site intact. Heart regular rate Lungs nonlabored Abdomen nondistended Assessment: Postop day 1 status post total knee arthroplasty with adductor canal catheter Plan: 1.All questions answered. Maintain catheter 2 more days with patient removal at home. Instructions to be given at discharge. 2.This note was dictated using [employer] software. Please be advised there is a potential for misspellings or errors in senior software project manager.
[2023-05-17 10:51] LABS: African American GFR (CKD) 64 (>60 ml/min/1.73 sqM); Anion Gap 6 mmol/L; Blood Urea Nitrogen 11 mg/dL (7-17); Calcium 7.5 mg/dL (8.4-10.2); Carbon Dioxide 24 mmol/L (22-30); Chloride 105 mmol/L (98-107); Glucose 111 mg/dL (74-99); Non-African American GFR(CKD) 55 (>60 ml/min/1.73 sqM); Potassium 3.9 mmol/L (3.5-5.1); Sodium 135 mmol/L (137-145)
[2023-05-17 10:52] LABS: Basophils % (A) 0 %; Eosinophils # (A) 0.1 k/uL (0-0.7); Eosinophils % (A) 1 %; HCT 31.3 % (34.0-46.0); HGB 10.2 gm/dL (11.4-16.0); Lymphocytes # (A) 1.1 k/uL (1.0-4.8); Lymphocytes % (A) 14 %; MCH 31.8 pg (25.0-35.0); MCHC 32.6 g/dL (31.0-37.0); MCV 97.4 fL (80.0-100.0); Mean Platelet Volume 8.4; Monocytes # (A) 0.5 k/uL (0-1.0); Monocytes % (A) 6 %; Neutrophils % (A) 77 %; Platelet Count 207 k/uL (150-450); RBC 3.22 m/uL (3.80-5.40); RDW 13.1 % (11.5-15.5); WBC 7.7 k/uL (3.8-10.6)
[2023-05-17 11:07] LABS: Glucose,Whole Blood 121 mg/dL (70-110)
[2023-05-17 11:26] LABS: Basophils # (A) 0.02 X 10*3/uL (0.00-0.10); Basophils % (A) 0.3 %; Eosinophils # (A) 0.07 X 10*3/uL (0.04-0.35); HCT 31.7 % (37.2-46.3); HGB 9.9 g/dL (12.0-15.0); Lymphocytes % (A) 28.2 %; MCH 31.2 pg (27.0-32.0); MCHC 31.2 g/dL (32.0-37.0); Mean Platelet Volume 10.8 FL (9.5-12.2); Monocytes # (A) 0.87 X 10*3/uL (0.20-1.00); Monocytes % (A) 12.9 %; NRBC Per 100 WBC 0 X 10*3/uL (0.00-0.01); Neutrophils # (A) 3.85 X 10*3/uL (1.80-7.70); Neutrophils % (A) 57.2 %; Platelet Count 225 X 10*3/uL (140-440); RBC 3.17 X 10*6/uL (4.10-5.20); RDW 13.2 % (11.5-14.5); WBC 6.74 X 10*3/uL (4.50-10.00)
--- NOTE | 2023-05-17 11:28 | P.PN ---
Subjective Progress Note Date: 05/17/23 Principal diagnosis: Right knee osteoarthritis Patient was seen at bedside this morning sitting up in chair with legs elevated. Dressing is present over the right anterior knee. Patient seemed a little bit groggy/fatigue during encounter. Patient's family member was present and did give most of the history during the encounter. Family member states patient just finished work with therapy. Patient mentions she does use a walker normally to ambulate around home. Patient says the pain has been controlled with medication. She says she has been icing her knee. Patient says she has not had bowel movement yet, however, patient says she has been passing gas. Patient denies chest pain, fever, shortness breath, nausea, vomiting, change in vision, loss of bowel/bladder control. Objective - Vital Signs Vital signs: Vital Signs Temp 98.3 F 05/17/23 11:09 Pulse 77 05/17/23 11:09 Resp 17 05/17/23 11:09 BP 76/43 05/17/23 11:09 Pulse Ox 98 05/17/23 11:09 FiO2 Intake & Output 05/16/23 05/17/23 05/17/23 18:59 06:59 18:59 Intake Total 451 250 Output Total 50 Balance 401 250 Weight 68.2 kg Intake: IV 451 Oral 250 Output: Estimated Blood Loss 50 Other: Voiding Method Bedside Commode Bedside Commode # Voids 1 3 - Exam Right knee: Incision is clean, dry, and intact. The exofin fusion tape is in good condition. There is minimal soft tissue swelling and ecchymosis surrounding the medial and lateral aspects of the incision. Calf is soft, no tenderness with palpation. Plantar flexion, dorsiflexion, EHL, FHL are intact. Sensory exam to light touch throughout the extremity is intact, dorsal pedis pulses 2+. - Labs CBC & Chem 7: 05/17/23 10:12 05/17/23 10:12 Labs: Abnormal Lab Results - Last 24 Hours (Table) 05/17/23 05/17/23 05/17/23 Range/Units 10:12 10:12 11:05 RBC 3.22 L (3.80-5.40) m/uL Hgb 10.2 L (11.4-16.0) gm/dL Hct 31.3 L (34.0-46.0) % Sodium 135 L (137-145) mmol/L Glucose 111 H (74-99) mg/dL POC Glucose (mg/dL) 121 H (70-110) mg/dL Calcium 7.5 L (8.4-10.2) mg/dL Assessment and Plan Assessment: 1. Right knee osteoarthritis - Postop day 1 status post right total knee arthroplasty Plan: 1. Right knee osteoarthritis - right total knee arthroplasty performed yesterday, 05/16/2023. Patient stable at bedside this morning. PT/OT recommending discharge rehab. Case management working on rehab placement this time. Plan to keep patient 1 more night for additional pain control and PT/OT. Plan for discharge to rehab tomorrow. 2. Appreciate medical management 3. Pain management - Anthony 4. DVT prophylaxis - Xarelto 5. GI prophylaxis - senna 6. PT/OT - weightbearing as tolerated with walker and assistance 7. Encourage incentive spirometer use 8. Discharge planning - plan for discharge to rehab tomorrow, 05/18/2023. Time with Patient: Less than 30
[2023-05-17] MEDS: traMADol 50 MG TAB PO PRN (13:53)
--- NOTE | 2023-05-17 15:59 | P.CONS ---
History of Present Illness - Reason for Consult Consult date: 05/17/23 Medical management Requesting physician: Virgilio Cooper - Chief Complaint Right knee osteoarthritis, status post right total knee arthroplasty - History of Present Illness This is a pleasant 72-year-old female with past medical history significant for osteoarthritis, hyperlipidemia, history of seizures, encephalitis 1988, short- term memory loss, vagus nerve stimulator implant, neuropathy, anxiety, depression, schizoaffective disorder, former nicotine dependence and multiple other medical issues status post right total knee arthroplasty secondary to right knee osteoarthritis, failed conservative treatment. Tolerated procedure well. Pain controlled, appears a little groggy. Passing flatus, no bowel movement. Denies chest pain, palpitations or shortness of breath. Maintaining O2 sats in the low 90s on room air. Hypotensive, close pain management, additional IV fluid boluses ordered. Labs ordered. Review of Systems ROS Statement: Those systems with pertinent positive or pertinent negative responses have been documented in the HPI. ROS Other: All systems not noted in ROS Statement are negative. 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 LAST SEIZURE month ago approx., has fallen w/seizures in past, balance problem, USES WALKER WITH WHEELS, WEAKNESS LEFT SIDE., STATES NO MRI'S DUE TO VAGUS NERVE STIMULATOR IMPLANT. neuropathy feet. mengitis in 1988. History of Any Multi-Drug Resistant Organisms: None Reported Past Surgical History: Joint Replacement, Orthopedic Surgery Additional Past Surgical History / Comment(s): VAGUS NERVE STIMULATOR LEFT CHEST (BATTERY ), LEFT HIPPOCAMPUS REMOVED. ORIF left ankle, right shoulder hemiarthroplasty 2019, Past Anesthesia/Blood Transfusion Reactions: Previous Problems w/ Anesthesia Additional Past Anesthesia/Blood Transfusion Reaction / Comm: HX OF BLOOD TRANSFUSION - NO REACTION, difficult IV start, after shoulder surg. had hallucinations that was thought to be from after effects of anesthesia & no visitors @that time due to covid Past Psychological History: Anxiety, Depression, Schizoaffective Disorder Smoking Status: Former smoker Past Alcohol Use History: None Reported Additional Past Alcohol Use History / Comment(s): QUIT SMOKING 1989. SMOKED 1 PPD. SMOKED FOR APPROX 35 YEARS. Past Drug Use History: None Reported - Past Family History Mother Family Medical History: Cancer Father Family Medical History: Cancer Medications and Allergies Home Medications Medication Instructions Recorded Confirmed Type Citalopram Hydrobromide [CeleXA] 20 mg PO HS 03/21/15 05/10/23 History Ziprasidone [Geodon] 80 mg PO BID 03/21/15 05/16/23 History Atorvastatin [Lipitor] 20 mg PO DAILY 11/16/15 05/16/23 History Carbidopa-Levodopa 25-100 mg 3 tab PO QAM 02/01/16 05/16/23 History [Sinemet 25-100 mg] Zonisamide [Zonegran] 200 mg PO HS 11/21/18 05/10/23 History Docusate [Colace] 100 mg PO DAILY 07/21/19 05/16/23 History cloBAZam [Clobazam] 30 mg PO HS 07/21/19 05/10/23 History Acetaminophen Tab [Tylenol] 650 mg PO Q6HR PRN tab 07/23/19 05/10/23 Rx Carbidopa-Levodopa 25-100 mg 2 each PO 1400 05/03/23 05/10/23 History [Sinemet 25-100] Pregabalin 100 mg PO HS 05/03/23 05/10/23 History Vit C/E/Zn/Coppr/Lutein/Zeaxan 1 each PO DAILY 05/03/23 05/10/23 History [Preservision Areds 2 Softgel] lamoTRIgine 200 mg PO TID 05/03/23 05/16/23 History Carbidopa-Levodopa 25-100 mg 2 each PO HS 05/10/23 05/10/23 History [Sinemet 25-100] LORazepam [Ativan] 1 mg PO DAILY PRN 05/10/23 05/16/23 History Allergies Allergy/AdvReac Type Severity Reaction Status Date / Time No Known Allergies Allergy Verified 05/16/23 12:13 Physical Exam Vitals: Vital Signs Temp Pulse Pulse Resp BP BP Pulse Ox 05/17/23 13:41 97.7 F 83 17 108/67 97 05/17/23 13:03 88 16 110/62 05/17/23 11:09 98.3 F 77 17 76/43 98 05/17/23 11:03 74 14 68/33 94 L 05/17/23 10:43 77 14 76/42 94 L 05/17/23 10:35 76 15 05/17/23 10:22 73 14 74/40 87 L 05/17/23 10:14 73/69 05/17/23 10:09 70/42 05/17/23 10:03 72 12 54/35 89 L 05/17/23 09:31 67/43 05/17/23 07:07 78 16 90/56 90 L 05/17/23 01:44 75 107/65 93 L 05/17/23 01:06 82 67/38 91 L 05/16/23 18:29 98.1 F 76 94/57 89 L 05/16/23 16:57 99 05/16/23 16:00 72 16 105/58 99 05/16/23 15:45 73 16 115/62 100 Intake and Output 05/17/23 05/17/23 05/17/23 06:59 14:59 22:59 Intake Total 450 Balance 450 Intake: Oral 450 Other: Voiding Method Bedside Commode # Voids 3 PHYSICAL EXAM: VITAL SIGNS: As above GENERAL: Sitting up in bed, no acute distress, sleepy, HEENT: Conjunctivae normal. eyes normal. NECK: No JVD. No thyroid enlargement. No LNs CARDIOVASCULAR: S1, S2 regular. No murmur RESPIRATION: Breath sounds diminished in the bases. No rhonchi or crackles. No bronchial breathing. ABDOMEN: Soft, nontender . No guarding. no masses palpable. Bowel sounds heard. LEGS: Right knee dressing clean dry and intact , mild edema. no calf tenderness, positive DP pulse PSYCHIATRY: Alert and oriented X2, mood and affect normal. NERVOUS SYSTEM: Cranial N 2-12 grossly normal. Skin: Warm and dry no rash Results CBC & Chem 7: 05/17/23 10:12 05/17/23 10:12 Labs: Abnormal Lab Results - Last 24 Hours (Table) 05/17/23 05/17/23 05/17/23 Range/Units 06:50 10:12 10:12 RBC 3.17 L 3.22 L (4.10-5.20) X 10*6/uL Hgb 9.9 L 10.2 L (12.0-15.0) g/dL Hct 31.7 L 31.3 L (37.2-46.3) % MCV 100.0 H (80.0-97.0) FL MCHC 31.2 L (32.0-37.0) g/dL Sodium 135 L (137-145) mmol/L Glucose 111 H (74-99) mg/dL POC Glucose (mg/dL) (70-110) mg/dL Calcium 7.5 L (8.4-10.2) mg/dL 05/17/23 Range/Units 11:05 RBC (4.10-5.20) X 10*6/uL Hgb (12.0-15.0) g/dL Hct (37.2-46.3) % MCV (80.0-97.0) FL MCHC (32.0-37.0) g/dL Sodium (137-145) mmol/L Glucose (74-99) mg/dL POC Glucose (mg/dL) 121 H (70-110) mg/dL Calcium (8.4-10.2) mg/dL Assessment and Plan Assessment: Right knee osteoarthritis status post right total knee arthroplasty Hypotension, appears to be opioid related Seizure disorder Dementia, possible Parkinson's disease Gait dysfunction, uses a walker Vagus nerve stimulator Left hippocampus removed Anxiety Depression Schizoaffective disorder Former nicotine dependence Plan: Continue on current medication regimen ,monitoring and symptomatic treatment. IV fluid boluses ordered in addition to pain management adjusted from [place] to Ultram. Ativan discontinued. close monitoring of BPs aggressive pulmonary toileting with incentive spirometer reinforced. PT once more awake. The impression and plan of care has been dictated as directed. : I performed a history and examination of this patient, discussed the same with the dictator. I agree with the dictator's note ,documented as a scribe. Any additional findings or plans will be noted.
[2023-05-17] MEDS: PANTOPRAZOLE 40 MG/10 ML VIAL IVP SCH (17:17)
--- NOTE | 2023-05-18 08:43 | P.PN ---
Subjective Progress Note Date: 05/18/23 Principal diagnosis: Right knee osteoarthritis Patient was seen at bedside this morning lying semirecumbent position with a dressing over anterior knee and ice present over the knee. Nurse was present during encounter. Patient says she is looking forward to working with therapy later this morning. Patient says she is looking forward to going to rehab later today. Patient says she is having pain at this time. Patient says the pain does worsen when she puts weight on the right lower extremity. Patient denies any other changes at this time. Patient denies chest pain, fever, shortness of breath, nausea, vomiting, change in vision, loss of bowel/bladder control. Objective - Vital Signs Vital signs: Vital Signs Temp 100.1 F H 05/18/23 06:46 Pulse 100 05/18/23 06:46 Resp 16 05/18/23 06:46 BP 124/76 05/18/23 06:46 Pulse Ox 97 05/18/23 07:46 FiO2 Intake & Output 05/17/23 05/18/23 05/18/23 18:59 06:59 18:59 Intake Total 450 560 Output Total 800 400 Balance -350 160 Intake: Oral 450 560 Output: Urine 800 400 Other: Voiding Method Bedside Commode Bedside Commode External Catheter - Exam Right knee: Incision is clean, dry, and intact. The exofin fusion tape is in good condi tion. There is minimal soft tissue swelling and ecchymosis surrounding the medial and lateral aspects of the incision. Calf is soft, no tenderness with palpation. Plantar flexion, dorsiflexion, EHL, FHL are intact. Sensory exam to light touch throughout the extremity is intact, dorsal pedis pulses 2+. - Labs CBC & Chem 7: 05/17/23 10:12 05/17/23 10:12 Labs: Abnormal Lab Results - Last 24 Hours (Table) 05/17/23 05/17/23 05/17/23 Range/Units 06:50 10:12 10:12 RBC 3.17 L 3.22 L (4.10-5.20) X 10*6/uL Hgb 9.9 L 10.2 L (12.0-15.0) g/dL Hct 31.7 L 31.3 L (37.2-46.3) % MCV 100.0 H (80.0-97.0) FL MCHC 31.2 L (32.0-37.0) g/dL Sodium 135 L (137-145) mmol/L Glucose 111 H (74-99) mg/dL POC Glucose (mg/dL) (70-110) mg/dL Calcium 7.5 L (8.4-10.2) mg/dL 05/17/23 Range/Units 11:05 RBC (4.10-5.20) X 10*6/uL Hgb (12.0-15.0) g/dL Hct (37.2-46.3) % MCV (80.0-97.0) FL MCHC (32.0-37.0) g/dL Sodium (137-145) mmol/L Glucose (74-99) mg/dL POC Glucose (mg/dL) 121 H (70-110) mg/dL Calcium (8.4-10.2) mg/dL Assessment and Plan Assessment: 1. Right knee osteoarthritis - Postop day 2 status post right total knee arthroplasty Plan: 1. Right knee osteoarthritis - right total knee arthroplasty performed 05/16/2023. Patient stable at bedside this morning. PT/OT recommending discharge to rehab. Case management working on rehab placement this time. pain meds as needed. Plan for discharge to rehab today. 2. Appreciate medical management 3. Pain management - tramadol; lyrica 4. DVT prophylaxis - Xarelto 5. GI prophylaxis - senna 6. PT/OT - weightbearing as tolerated with walker and assistance 7. Encourage incentive spirometer use 8. Discharge planning - plan for discharge to rehab today, 05/18/2023. Time with Patient: Less than 30
--- NOTE | 2023-05-18 10:48 | P.DS ---
Providers Expected date of discharge: 05/18/23 Attending physician: Virgilio Cooper Consults: 05/16/23 14:27 Consult Physician Routine Consulting Provider: Javier Looney Consult Reason/Comments: medical management s/p right total knee arthroplasty Do you want consulting provider notified?: Yes Primary care physician: Javier Looney Hospital Course: Date of admission: 05/16/2023 Date of discharge: 05/18/2023 Admission diagnosis: Right knee osteoarthritis Discharge diagnosis: Same Attending physician: Dr. Cooper Surgical procedures: Right total knee arthroplasty Brief history: Patient is a 72-year-old female with a history of progressive primary right knee osteoarthritis. At this point patient has failed conservative treatment measures and has opted to proceed with a elective right total knee arthroplasty. Hospital course: Details of patient's surgery can be found in operative report. Patient tolerated the procedure well and was subsequently transported to orthopedic floor. Patient's orthopeidc and medical care was provided daily. Patient had daily laboratory tests performed for evaluation of overall blood counts. Patient had daily physical therapy to include strengthening range of motion as well as education with walker ambulation. Patient was treated with Xarelto for their postoperative DVT prophylaxis during their inpatient stay. Patient was noted to have a relatively uneventful postoperative course. Patient reported satisfactory pain control with oral pain medications by postoperative day 2. Patient showed satisfactory progress with physical therapy. Patient moved steadily through the program and had no difficulty meeting the goals by postoperative day 2. Given patient's otherwise satisfactory course and having met physical therapy goals, plan is to discharge patient to rehab on postoperative day 2. Discharge condition/disposition: Patient will be discharged to rehab in stable condition. Discharge medications: Instructions are given on resumption of patient's normal daily medications per primary care recommendation, in addition patient will be prescribed tramadol; senna; Eliquis. Discharge instructions: 1. Wound care and infection precautions, keep incision dry and covered while showering, no lotions, creams, moisturizers. No soaking, tubs, pools, hottubs. Do not scrub over the incision. 2. Weight-bear as tolerated with walker / cane until follow-up. 3. Ice and elevate when necessary. Do not exceed 20 minutes per hour with ice pack. 4. Utilize compression sleeve until seen at first follow up appointment. 5. Visiting nursing care. 6. Home physical therapy including home CPM. 7. Pain meds and anticoagulants per prescription. 8. Pain medication has potential to cause constipation. Increase oral fluid and fiber intake. Contact primary care provider if you have not had a bowel movement within 48 hours after discharge 9. No anti-inflammatory medication until discussed at first post operative visit, this including Motrin, Aleve, Mobic, Diclofenac. 10. Follow up in office at 2 weeks postop with Jean-Paul Ellsworth PA-C / Silas Cuevas PA-C 11. Follow up with your primary care doctor 7-10 days after discharge. 12. Contact [facility] with any questions, . Assessment: Right knee osteoarthritis Procedures: Right total knee arthroplasty Patient Condition at Discharge: Good Plan - Discharge Summary Discharge Rx Participant: No New Discharge Prescriptions: New Pregabalin [Lyrica] 100 mg PO HS #14 cap Apixaban [Eliquis] 2.5 mg PO BID #60 tab traMADol HCL 50 mg PO Q6H #16 tab Sennosides/Docusate Sodium [Senna Plus 8.6-50 mg Softgel] 1 each PO DAILY #20 capsule No Action Ziprasidone [Geodon] 80 mg PO BID Citalopram Hydrobromide [CeleXA] 20 mg PO HS Atorvastatin [Lipitor] 20 mg PO DAILY Carbidopa-Levodopa 25-100 mg [Sinemet 25-100 mg] 3 tab PO QAM Zonisamide [Zonegran] 200 mg PO HS Docusate [Colace] 100 mg PO DAILY cloBAZam [Clobazam] 30 mg PO HS Acetaminophen Tab [Tylenol] 650 mg PO Q6HR PRN tab PRN Reason: Mild Pain Or Fever > 100.5 Carbidopa-Levodopa 25-100 mg [Sinemet 25-100] 2 each PO 1400 Carbidopa-Levodopa 25-100 mg [Sinemet 25-100] 2 each PO HS lamoTRIgine 200 mg PO TID Vit C/E/Zn/Coppr/Lutein/Zeaxan [Preservision Areds 2 Softgel] 1 each PO DAILY Pregabalin 100 mg PO HS LORazepam [Ativan] 1 mg PO DAILY PRN PRN Reason: Anxiety Discharge Medication List Citalopram Hydrobromide [CeleXA] 20 mg PO HS 03/21/15 [History] Ziprasidone [Geodon] 80 mg PO BID 03/21/15 [History] Atorvastatin [Lipitor] 20 mg PO DAILY 11/16/15 [History] Carbidopa-Levodopa 25-100 mg [Sinemet 25-100 mg] 3 tab PO QAM 02/01/16 [History] Zonisamide [Zonegran] 200 mg PO HS 11/21/18 [History] Docusate [Colace] 100 mg PO DAILY 07/21/19 [History] cloBAZam [Clobazam] 30 mg PO HS 07/21/19 [History] Acetaminophen Tab [Tylenol] 650 mg PO Q6HR PRN tab 07/23/19 [Rx] Carbidopa-Levodopa 25-100 mg [Sinemet 25-100] 2 each PO 1400 05/03/23 [History] Pregabalin 100 mg PO HS 05/03/23 [History] Vit C/E/Zn/Coppr/Lutein/Zeaxan [Preservision Areds 2 Softgel] 1 each PO DAILY 05/03/23 [History] lamoTRIgine 200 mg PO TID 05/03/23 [History] Carbidopa-Levodopa 25-100 mg [Sinemet 25-100] 2 each PO HS 05/10/23 [History] LORazepam [Ativan] 1 mg PO DAILY PRN 05/10/23 [History] Apixaban [Eliquis] 2.5 mg PO BID #60 tab 05/18/23 [Rx] Pregabalin [Lyrica] 100 mg PO HS #14 cap 05/18/23 [Rx] Sennosides/Docusate Sodium [Senna Plus 8.6-50 mg Softgel] 1 each PO DAILY #20 capsule 05/18/23 [Rx] traMADol HCL 50 mg PO Q6H #16 tab 05/18/23 [Rx] Follow up Appointment(s)/Referral(s): Silas Cuevas PAC [PHYSIC[facility] [employer]] - 2 [facility] [facility] [place], [NON-STAFF] - As Needed Patient Instructions/Handouts: Knee Replacement (DC), Knee Replacement (GEN) Activity/Diet/Wound Care/Special Instructions: Orthopedic Discharge Instructions: 1. Wound care and infection precautions, keep incision dry and covered while showering, no lotions, creams, moisturizers. No soaking, pools, hot tubs. Do not scrub over incision. 2. Weight-bear as tolerated with walker / cane until follow-up. 3. Ice and elevate when necessary. Do not exceed 20 minutes per hour with ice pack. 4. Utilize compression sleeve until seen at first follow up appointment. 5. Pain meds and anticoagulants per prescription. 6. Pain medication has potential to cause constipation. Increase oral fluid and fiber intake. Contact primary care provider if you have not had a bowel movement within 48 hours after discharge. 7. No anti-inflammatory medication until discussed at first post operative visit, this including Motrin, Aleve, Mobic, Diclofenac. 8. Follow up in office at 2 weeks postop with Jean-Paul Ellsworth PA-C / Silas Cuevas PA-C 9. Follow up with your primary care doctor 7-10 days after discharge. 10. Contact [facility] with any questions, . Keep incision clean, dry, intact. While showering, cover fusion tape with Saran wrap. Keep fusion tape on until follow-up appointment in office in 2 weeks Discharge Disposition: TRANSFER TO SNF/ECF
--- NOTE | 2023-05-18 11:39 | P.PN ---
Subjective Progress Note Date: 05/18/23 - History of Present Illness 05/17/23 This is a pleasant 72-year-old female with past medical history significant for osteoarthritis, hyperlipidemia, history of seizures, encephalitis 1988, short- term memory loss, vagus nerve stimulator implant, neuropathy, anxiety, depression, schizoaffective disorder, former nicotine dependence and multiple other medical issues status post right total knee arthroplasty secondary to right knee osteoarthritis, failed conservative treatment. Tolerated procedure well. Pain controlled, appears a little groggy. Passing flatus, no bowel movement. Denies chest pain, palpitations or shortness of breath. Maintaining O2 sats in the low 90s on room air. Hypotensive, close pain management, additional IV fluid boluses ordered. Labs ordered. 05/18/2023 blood pressures improving, systolic blood pressure currently 124/76, maintaining O2 sats in the mid 90s on 2 L nasal cannula. Tmax 100.1. Feels fatigued, achy .states she still feels a little" loopy ".pain controlled .denies chest pain, palpitations or shortness of breath. Denies lightheadedness, dizziness or focal deficits. Passing flatus. Consumed 35% of breakfast. Denies nausea, vomiting or diarrhea. Denies abdominal pain. Labs pending. Objective - Vital Signs Vital signs: Vital Signs Temp 100.1 F H 05/18/23 06:46 Pulse 100 05/18/23 06:46 Resp 16 05/18/23 06:46 BP 124/76 05/18/23 06:46 Pulse Ox 97 05/18/23 07:46 FiO2 Intake & Output 05/17/23 05/18/23 05/18/23 18:59 06:59 18:59 Intake Total 450 560 Output Total 800 400 Balance -350 160 Intake: Oral 450 560 Output: Urine 800 400 Other: Voiding Method Bedside Commode Bedside Commode External Catheter - Exam PHYSICAL EXAM: VITAL SIGNS: As above GENERAL: Lying in bed, no acute distress, tired appearing HEENT: Normocephalic conjunctivae normal. eyes normal. NECK: Supple, no JVD. No thyroid enlargement. No LNs CARDIOVASCULAR: S1, S2 regular. No murmur RESPIRATION: Breath sounds diminished in the bases. No rhonchi or crackles. No b ronchial breathing. ABDOMEN: Soft, nontender . No guarding. no masses palpable. Bowel sounds heard . LEGS: Right knee dressing clean dry and intact , mild edema. no calf tenderness, positive DP pulse PSYCHIATRY: Alert and oriented X2, mood and affect normal. NERVOUS SYSTEM: Cranial N 2-12 grossly normal. Skin: Warm and dry no rash - Labs CBC & Chem 7: 05/17/23 10:12 05/17/23 10:12 Labs: Abnormal Lab Results - Last 24 Hours (Table) 05/18/23 Range/Units 08:20 Plasma Lactic Acid Roman <0.5 L (0.7-2.0) mmol/L Assessment and Plan Assessment: Right knee osteoarthritis status post right total knee arthroplasty Hypotension, appears to be opioid related, improving Seizure disorder Dementia, possible Parkinson's disease Gait dysfunction, uses a walker Vagus nerve stimulator Left hippocampus removed Anxiety Depression Schizoaffective disorder Former nicotine dependence Plan: Continue on current medication regimen ,monitoring and symptomatic treatment. Patient is not medically cleared for discharge. Tmax 100.1. Labs pending. lactic acid, viral studies as well as blood cultures ordered. Discharge planning in the next 24 hours. The impression and plan of care has been dictated as directed. : I performed a history and examination of this patient, discussed the same with the dictator. I agree with the dictator's note ,documented as a scribe. Any a dditional findings or plans will be noted.
[2023-05-18 14:47] LABS: Basophils % (A) 0 %; Eosinophils # (A) 0.1 k/uL (0-0.7); Eosinophils % (A) 1 %; HCT 33.8 % (34.0-46.0); HGB 10.3 gm/dL (11.4-16.0); Hypochromasia Moderate; Lymphocytes # (A) 1.6 k/uL (1.0-4.8); Lymphocytes % (A) 19 %; MCH 30.8 pg (25.0-35.0); MCHC 30.4 g/dL (31.0-37.0); MCV 101.4 fL (80.0-100.0); Mean Platelet Volume 8.2; Monocytes # (A) 0.7 k/uL (0-1.0); Monocytes % (A) 8 %; Neutrophils % (A) 70 %; Platelet Count 221 k/uL (150-450); RBC 3.34 m/uL (3.80-5.40); RDW 12.7 % (11.5-15.5); WBC 8.5 k/uL (3.8-10.6)
[2023-05-18 14:58] LABS: African American GFR (CKD) >90 (>60 ml/min/1.73 sqM); Anion Gap 7 mmol/L; Blood Urea Nitrogen 7 mg/dL (7-17); Calcium 7.7 mg/dL (8.4-10.2); Carbon Dioxide 23 mmol/L (22-30); Chloride 107 mmol/L (98-107); Glucose 111 mg/dL (74-99); Non-African American GFR(CKD) 88 (>60 ml/min/1.73 sqM); Sodium 137 mmol/L (137-145)
[2023-05-18 15:03] LABS: Potassium 3.8 mmol/L (3.5-5.1)
[2023-05-18] MEDS: ACETAMINOPHEN TAB 500 MG TAB PO PRN (17:06)
--- NOTE | 2023-05-19 05:38 | P.PN ---
Progress Note - Text Progress Note Date: 05/19/23 Patient did not discharge yesterday, 05/18/23, due to low grade fever, medical waned to monitor overnight. Patient has remained afebrile at this time. Continue to encourage incentive spirometer every hour while awake. Patient is cleared from Orthopedic standpoint for discharge today to [facility].
[2023-05-19] MEDS: PANTOPRAZOLE 40 MG TABLET PO SCH (06:39)
[2023-05-19 07:58] LABS: Basophils % (A) 0 %; Eosinophils # (A) 0.1 k/uL (0-0.7); Eosinophils % (A) 1 %; HCT 30.8 % (34.0-46.0); HGB 9.9 gm/dL (11.4-16.0); Lymphocytes # (A) 1.6 k/uL (1.0-4.8); Lymphocytes % (A) 21 %; MCH 31.1 pg (25.0-35.0); MCHC 32.1 g/dL (31.0-37.0); MCV 97.1 fL (80.0-100.0); Mean Platelet Volume 8.5; Monocytes # (A) 0.5 k/uL (0-1.0); Monocytes % (A) 7 %; Neutrophils # (A) 5.1 k/uL (1.3-7.7); Neutrophils % (A) 69 %; Platelet Count 222 k/uL (150-450); RBC 3.17 m/uL (3.80-5.40); RDW 12.8 % (11.5-15.5); WBC 7.5 k/uL (3.8-10.6)
[2023-05-19 09:19] VITALS: BP 114/62; PULSE 97; RESP 18; TEMP 98.3
--- NOTE | 2023-05-19 11:35 | P.PN ---
Subjective 05/17/23 This is a pleasant 72-year-old female with past medical history significant for osteoarthritis, hyperlipidemia, history of seizures, encephalitis 1988, short- term memory loss, vagus nerve stimulator implant, neuropathy, anxiety, depression, schizoaffective disorder, former nicotine dependence and multiple other medical issues status post right total knee arthroplasty secondary to right knee osteoarthritis, failed conservative treatment. Tolerated procedure well. Pain controlled, appears a little groggy. Passing flatus, no bowel movement. Denies chest pain, palpitations or shortness of breath. Maintaining O2 sats in the low 90s on room air. Hypotensive, close pain management, additional IV fluid boluses ordered. Labs ordered. 05/18/2023 blood pressures improving, systolic blood pressure currently 124/76, maintaining O2 sats in the mid 90s on 2 L nasal cannula. Tmax 100.1. Feels fatigued, achy .states she still feels a little" loopy ".pain controlled .denies chest pain, palpitations or shortness of breath. Denies lightheadedness, dizziness or focal deficits. Passing flatus. Consumed 35% of breakfast. Denies nausea, vomiting or diarrhea. Denies abdominal pain. Labs pending. 05/19/2023: Patient scheduled to go to rehabilitation today at 2 PM. I plan on seeing her there on Sunday of this coming week or sooner if needed. She is now afebrile, Tmax is 98.6 F she had a mild temperature of 100.1 yesterday morning at 6:46 AM. She is in less pain, feels much better. Denies any significant complaints at this time. Objective - Vital Signs Vital signs: Vital Signs Temp 98.3 F 05/19/23 07:35 Pulse 97 05/19/23 07:35 Resp 18 05/19/23 07:35 BP 114/62 05/19/23 07:35 Pulse Ox 91 L 05/19/23 07:35 FiO2 Intake & Output 05/18/23 05/19/23 05/19/23 18:59 06:59 18:59 Intake Total 500 1200 Output Total 600 350 900 Balance -100 850 -900 Intake: Oral 500 1200 Output: Urine 600 350 900 Other: Voiding Method Bedside Commode External Catheter - Exam GENERAL: Lying in bed, no acute distress, alert watching television NECK: Supple, no JVD. No thyroid enlargement. No LNs CARDIOVASCULAR: S1, S2 regular. No murmur RESPIRATION: Breath sounds very slightly diminished in the bases. No rhonchi or crackles. No bronchial breathing. ABDOMEN: Soft, nontender . No guarding. no masses palpable. Bowel sounds heard . LEGS: Right knee dressing clean dry and intact , mild edema. no calf tenderness, positive DP pulse PSYCHIATRY: Alert and oriented X2, mood and affect normal. NERVOUS SYSTEM: Cranial N 2-12 grossly normal. Skin: Warm and dry no rash - Labs CBC & Chem 7: 05/19/23 06:58 05/18/23 14:23 Labs: Abnormal Lab Results - Last 24 Hours (Table) 05/18/23 05/18/23 05/18/23 Range/Units 08:19 14:23 14:23 RBC 3.34 L (3.80-5.40) m/uL Hgb 10.3 L (11.4-16.0) gm/dL Hct 33.8 L (34.0-46.0) % MCV 101.4 H (80.0-100.0) fL MCHC 30.4 L (31.0-37.0) g/dL Glucose 111 H (74-99) mg/dL Calcium 7.7 L (8.4-10.2) mg/dL SARS-CoV-2 Ab,Total Positive A (Negative) 05/19/23 Range/Units 06:58 RBC 3.17 L (3.80-5.40) m/uL Hgb 9.9 L (11.4-16.0) gm/dL Hct 30.8 L (34.0-46.0) % MCV (80.0-100.0) fL MCHC (31.0-37.0) g/dL Glucose (74-99) mg/dL Calcium (8.4-10.2) mg/dL SARS-CoV-2 Ab,Total (Negative) Assessment and Plan Plan: Right knee osteoarthritis status post right total knee arthroplasty Hypotension, appears to be opioid related, improving Seizure disorder Dementia, possible Parkinson's disease Gait dysfunction, uses a walker Vagus nerve stimulator Left hippocampus removed Anxiety Depression Schizoaffective disorder Former nicotine dependence She is much improved. She is medically clear for discharge to [facility]. We will follow her up at [facility] in the next several days.
== END 2023-05-19 15:50 ==
LOC: OR 11:18 → 4SSUR 14:50 → OR 05-19 15:50
PROVIDERS: ATTEND Orthopaedic Surgery
DX: M17.11 Unilateral primary osteoarthritis, right knee (principal); E78.5 Hyperlipidemia, unspecified; G89.18 Other acute postprocedural pain; G40.909 Epilepsy, unspecified, not intractable, without status epilepticus; Z98.890 Other specified postprocedural states; Z87.891 Personal history of nicotine dependence; Z79.899 Other long term (current) drug therapy
CPT/HCPCS: 97530; 97161; 97166; 64999; 64448; 80048; 85025 ×2; 73560; 27447; C1713 ×2; C1776; C1751; J2250; J0690 ×3; J2405; J3010; J2795; C9113

== ENCOUNTER → 2023-10-17 | Outpatient (CLI) | payer MEDICARE, OTHER ==
--- NOTE | 2023-11-10 20:03 | CT ---
Patient: Karina Tucker Ordering Physician: Unknown, Unknown ID: [id number] Phone, Pager: Phone: N/A Pager: N/A : [phone] Age/Gender: 72Y, F Primary Location: N/A Procedure: CT LUMBAR SPINE WO CON Study Date: 10/17/2023 6:37:00 PM EXAMINATION TYPE: CT lumbar spine wo con CT DLP: 508 mGycm, Automated exposure control for dose reduction was used. DATE OF EXAM: 10/24/2023 10:14 AM COMPARISON: 11/09/2011. CLINICAL INDICATION: low back pain, falls TECHNIQUE: Multiple axial images were obtained from the midportion of T11 through the sacroiliac saul nts. Soft tissue and bone windows in coronal and sagittal planes were obtained and reviewed. Contrast used: mL of , (None, if empty). Oral contrast used: (None, if empty). FINDINGS: Alignment: There are 5 lumbar type vertebral bodies. Grade 1 anterolisthesis of L4 and L5. Bone: Multilevel degeneration changes throughout the spine with osteophytes, facet arthropathy and va cuum disc phenomenon with disc space narrowing. Compression deformity of T12 with 50% height loss. No significant retropulsion however there our osteophytes at T12-L1. Moderate degeneration changes of t he sacroiliac joint with osteophyte formation present bilaterally Discs: T12-L1: Facet joint arthropathy, osteophytes and disc bulging result in mild spinal canal stenosis an d mild bilateral neural foraminal stenosis. L1-L2: No spinal canal or neural foraminal stenosis is identified. L2-L3: No spinal canal or neural foraminal stenosis is identified. L3-L4: No spinal canal or neural foraminal stenosis is identified. L4-L5: Grade 1 anterolisthesis of L4 and L5 without significant spinal canal stenosis. Facet arthropa thy with mild bilateral neural foraminal stenosis. L5-S1: Facet joint arthropathy, osteophytes and disc bulging result in mild spinal canal stenosis and mild bilateral neural foraminal stenosis. Other: Right lower lobe consolidation and/or pulmonary nodule measuring 13 mm. Scattered colonic dive rticula present. Atherosclerosis of the arterial vasculature. IMPRESSION: 1. No evidence for spinal fracture. 2. Moderate to severe degeneration of the spine. 3. Grade 1 anterolisthesis of L4 and L5. No evidence of spondylolysis. Bilaterally 4. Right lower lobe 13 mm area of nodular like consolidation in the lung which is incompletely seen o n scan. Evaluation of the lungs with noncontrast CT chest. 5.: Colonic diverticulosis..
== END | disposition home or self-care (01) ==
LOC: RADCTMAIN 18:16
PROVIDERS: ATTEND Psychiatry & Neurology Neurology
DX: M47.816 Spondylosis without myelopathy or radiculopathy, lumbar region (principal); M43.16 Spondylolisthesis, lumbar region; M51.36 Other intervertebral disc degeneration, lumbar region; K57.30 Diverticulosis of large intestine without perforation or abscess without bleeding; R91.1 Solitary pulmonary nodule
CPT/HCPCS: 72131

== ENCOUNTER 2023-12-19 12:53 | Emergency (ER) | payer MEDICARE, OTHER ==
[2023-12-19 13:22] VITALS: TEMP 98.1
[2023-12-19] MEDS: ORPHENADRINE 30 MG/ML 2 ML VIAL IVP STA (14:08)
[2023-12-19] MEDS: LIDOCAINE 4% PATCH TOPICAL ONE (14:08)
[2023-12-19] MEDS: KETOROLAC 15 MG/ML 1 ML VIAL IVP STA (14:09)
[2023-12-19] MEDS: MORPHINE SULFATE 4 MG/ML SYRINGE IVP STA (14:10)
[2023-12-19] MEDS: DEXAMETHASONE SOD PHOSPHATE 10 MG/ML 1 ML VIAL IVP STA (14:22)
--- NOTE | 2023-12-19 14:51 | ED ---
Back Pain HPI - General Chief Complaint: Back Pain/Injury Stated Complaint: back pain Time Seen by Provider: 12/19/23 13:35 Source: patient, family, RN notes reviewed Mode of arrival: wheelchair Limitations: no limitations - History of Present Illness Initial Comments: This is a 73-year-old female who presents to the emergency department for back pain and right hip pain. Patient had a mechanical fall 3 weeks ago causing an injury to her lower back and right hip. She initially went to urgent care and had negative x-rays. However, she has continued to be in pain, which family states is getting worse. She was taking Toradol, which she ran out of. Found this somewhat helpful. Her PCP ordered a CT scan to be done on an outpatient basis today. However, patient states that she couldn't wait and decided to come to the emergency department instead. Denies any loss of bowel/bladder control or saddle anesthesia. MD Complaint: back pain - Related Data Home Medications Medication Instructions Recorded Confirmed Citalopram Hydrobromide [CeleXA] 20 mg PO HS 03/21/15 05/10/23 Ziprasidone [Geodon] 80 mg PO BID 03/21/15 05/16/23 Atorvastatin [Lipitor] 20 mg PO DAILY 11/16/15 05/16/23 Carbidopa-Levodopa 25-100 mg 3 tab PO QAM 02/01/16 05/16/23 [Sinemet 25-100 mg] Zonisamide [Zonegran] 200 mg PO HS 11/21/18 05/10/23 Docusate [Colace] 100 mg PO DAILY 07/21/19 05/16/23 cloBAZam [Clobazam] 30 mg PO HS 07/21/19 05/10/23 Carbidopa-Levodopa 25-100 mg 2 each PO 1400 05/03/23 05/10/23 [Sinemet 25-100] Pregabalin 100 mg PO HS 05/03/23 05/10/23 Vit C/E/Zn/Coppr/Lutein/Zeaxan 1 each PO DAILY 05/03/23 05/10/23 [Preservision Areds 2 Softgel] lamoTRIgine 200 mg PO TID 05/03/23 05/16/23 Carbidopa-Levodopa 25-100 mg 2 each PO HS 05/10/23 05/10/23 [Sinemet 25-100] LORazepam [Ativan] 1 mg PO DAILY PRN 05/10/23 05/16/23 Previous Rx's Medication Instructions Recorded Acetaminophen Tab [Tylenol] 650 mg PO Q6HR PRN tab 07/23/19 Apixaban [Eliquis] 2.5 mg PO BID #60 tab 05/18/23 Pregabalin [Lyrica] 100 mg PO HS #14 cap 05/18/23 Sennosides/Docusate Sodium [Senna 1 each PO DAILY #20 capsule 05/18/23 Plus 8.6-50 mg Softgel] traMADol HCL 50 mg PO Q6H #16 tab 05/18/23 Lactulose 10 - 20 gm PO DAILY PRN #473 ml 12/19/23 Lidocaine 5% Patch [Lidoderm 5% 1 patch TOPICAL DAILY PRN #30 patch 12/19/23 Patch] Meloxicam [Mobic] 15 mg PO DAILY PRN #30 tab 12/19/23 methocarbamoL [Robaxin] 1,000 mg PO TID PRN #30 tab 12/19/23 Allergies Allergy/AdvReac Type Severity Reaction Status Date / Time No Known Allergies Allergy Verified 12/19/23 13:22 Review of Systems ROS Statement: Those systems with pertinent positive or pertinent negative responses have been documented in the HPI. ROS Other: All systems not noted in ROS Statement are negative. 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 LAST SEIZURE month ago approx., has fallen w/seizures in past, balance problem, USES WALKER WITH WHEELS, WEAKNESS LEFT SIDE., STATES NO MRI'S DUE TO VAGUS NERVE STIMULATOR IMPLANT. neuropathy feet. mengitis in 1988. History of Any Multi-Drug Resistant Organisms: None Reported Past Surgical History: Orthopedic Surgery Additional Past Surgical History / Comment(s): VAGUS NERVE STIMULATOR LEFT CHEST (BATTERY ), LEFT HIPPOCAMPUS REMOVED. ORIF left ankle, right shoulder hemiarthroplasty 2019, Past Anesthesia/Blood Transfusion Reactions: No Reported Reaction Additional Past Anesthesia/Blood Transfusion Reaction / Comment(s): HX OF BLOOD TRANSFUSION - NO REACTION Past Psychological History: Anxiety, Depression, Schizoaffective Disorder Smoking Status: Never smoker - Past Family History Mother Family Medical History: Cancer Father Family Medical History: Cancer General Exam Limitations: no limitations General appearance: alert, in no apparent distress Head exam: Present: atraumatic, normocephalic, normal inspection Respiratory exam: Present: normal lung sounds bilaterally. Absent: respiratory distress, wheezes, rales, rhonchi, stridor Cardiovascular Exam: Present: regular rate, normal rhythm, normal heart sounds. Absent: systolic murmur, diastolic murmur, rubs, gallop, clicks Extremities exam: Present: other (Tenderness to palpation over the right hip. Full range of motion. 2+ DP and PT pulses) Back exam: Present: other (Tenderness to palpation over the right lower back) Neurological exam: Present: alert, oriented X3, CN II-XII intact Psychiatric exam: Present: normal affect, normal mood Skin exam: Present: warm, dry, intact, normal color. Absent: rash Course Vital Signs 12/19/23 12/19/23 13:18 16:51 Temperature 98.1 F Pulse Rate 82 76 Respiratory 22 18 Rate Blood Pressure 119/68 110/75 O2 Sat by Pulse 96 97 Oximetry Medical Decision Making - Medical Decision Making This is a 73 year old female who presents to the emergency department for back pain. Was pt. sent in by a medical professional or institution? @ -No Did you speak to anyone other than the patient for history? @ -Her son provided the majority of the history. Did you review nursing and triage notes? @ -Yes, and I agree, it is accurate with regards to the patient's symptoms. Were old charts reviewed? @ -No Differential Diagnosis? @ -Differential Back Pain: Strain, zoster, cauda equina syndrome, epidural abscess, vertebral osteomyelitis, discitis, fracture, subluxation, disc herniation, DJD, spinal st enosis, dissection, AAA, pancreatitis, peptic ulcer disease, pyelonephritis, kidney stone, this is not meant to be an all-inclusive list. EKG interpreted by me (3pts min.)? @ -Not obtained X-rays interpreted by me (1pt min.)? @ -Not obtained CT interpreted by me (1pt min.)? @ -CT scan of the pelvis and lumbar spine obtained. My interpretation identifies no acute fractures. U/S interpreted by me (1pt. min.)? @ -Not obtained What testing was considered but not performed? (CT, X-rays, U/S, labs)? Why? @ -None What meds were considered but not given? Why? @ -None Did you discuss the management of the patient with other professionals? @ -No Did you reconcile home meds? @ -No Was smoking cessation discussed for >3mins.? @ -No Was critical care preformed (if so, how long)? @ -No Were there social determinants of health that impacted care today? How? (Homelessness, low income, unemployed, alcoholism, drug addiction, adams sportation, low edu. Level, literacy, decrease access to med. care, usp, rehab)? @ -No Was there de-escalation of care discussed even if they declined? (Discuss DNR or withdrawal of care, Hospice)? @ -No What co-morbidities impacted this encounter? (DM, HTN, Smoking, COPD, CAD, Cancer, CVA, Hep., AIDS, mental health diagnosis, sleep apnea, morbid obesity)? @ -Osteoarthritis Was patient admitted / discharged? @ -Discharged. Given that the patient is already scheduled for a CT scan today, we discussed the option of having her cancel that and proceeding with the scan here versus just giving her medication and having her attend that as scheduled. Patient requests to have the CT scan done here instead. CT scan of the pelvis and lumbar spine obtained. CT scan of the pelvis demonstrates no acute fracture. She has remote fractures of the pubic symphysis bilaterally as well as a large stool burden throughout the colon. CT scan of the lumbar spine obtained as well. This demonstrates progression of the compression deformity of the L1 vertebral body with up to 50% height loss. No significant retropulsion. She has a similar deformity to the T12 vertebral body. Discussed the possibility of the fracture causing worsening of the compression fractures that are already present. Pain was managed in the emergency department. Prescription for Mobic, Robaxin, and lidocaine patches provided. Lactulose prescribed for the constipation. Otherwise advised follow-up with her PCP. Patient discharged home in stable condition. Case discussed with ED attending Dr. Bucio. Return precautions reviewed in depth, the patient is instructed to return to the emergency department with any new, worsening, or concerning symptoms. Patient verbalized understanding. Undiagnosed new problem with uncertain prognosis? @ -None Drug Therapy requiring intensive monitoring for toxicity (Heparin, Nitro, Insulin, Cardizem)? @ -None Were any procedures done? @ -None Diagnosis/symptom? @ -Fall, low back pain, right hip pain, constipation Acute, or Chronic, or Acute on Chronic? @ -Acute Uncomplicated (without systemic symptoms) or Complicated (systemic symptoms)? @ -Uncomplicated Side effects of treatment? @ -None Exacerbation, Progression, or Severe Exacerbation] @ -Not applicable Poses a threat to life or bodily function? @ -The pain is limiting her function. - Radiology Data Radiology results: report reviewed, image reviewed Disposition Clinical Impression: Fall, Low back pain, Right hip pain, Constipation Disposition: HOME SELF-CARE Instructions (If sedation given, give patient instructions): Constipation (ED), Fall Prevention for Older Adults (ED) Additional Instructions: Return to the emergency department with any new, worsening, or concerning symptoms. Take the Mobic once daily. Continue to take Tylenol every 6 hours as well. Take the Robaxin as 2 to 3 tablets up to 3-4 times daily. Be aware that this may make you drowsy. You can also apply the lidocaine patches daily. Take the lactulose once daily for constipation. Follow up with your primary care provider in 1-2 days. Prescriptions: Lactulose 10 - 20 gm PO DAILY PRN #473 ml PRN Reason: Constipation Lidocaine 5% Patch [Lidoderm 5% Patch] 1 patch TOPICAL DAILY PRN #30 patch PRN Reason: Pain Meloxicam [Mobic] 15 mg PO DAILY PRN #30 tab PRN Reason: Pain methocarbamoL [Robaxin] 1,000 mg PO TID PRN #30 tab PRN Reason: Pain Is patient prescribed a controlled substance at d/c from ED?: No Referrals: Javier Looney MD [Primary Care Provider] - 1-2 days Time of Disposition: 16:29
--- NOTE | 2023-12-19 15:47 | CT ---
EXAMINATION TYPE: CT pelvis wo con CT DLP: combined dlp 1178.5 mGycm, Automated exposure control for dose reduction was used. DATE OF EXAM: 12/19/2023 3:31 PM COMPARISON: None CLINICAL INDICATION: Female, 73 years old with history of Pain after fall; fell 3 weeks ago. rt side pain TECHNIQUE: Axial CT pelvis wo con;Sagittal and coronal reformats were created on a separate workstat ion. Contrast used: mL of , (none if empty) Oral contrast used: without Oral Contrast (none if empty) FINDINGS: BLADDER: Unremarkable REPRODUCTIVE: Unremarkable. ABDOMEN & PELVIS STOMACH AND BOWEL: No evidence of bowel obstruction. Large amount of stool throughout the colon. PERITONEUM/RETROPERITONEUM: No evidence of pneumoperitoneum or free fluid. VASCULATURE: Moderate atherosclerotic calcifications are present throughout the abdominal aorta and i ts branches. No evidence of aortic aneurysm. MUSCULOSKELETAL: No acute osseous abnormalities, remote appearing fractures of the bilateral superior pubic rami/pubic symphysis. Mild joint space narrowing osteophyte formation of the hips. LYMPH NODES: No gross evidence for lymphadenopathy. SOFT TISSUE/ABDOMINAL WALL: Unremarkable IMPRESSION: 1. No evidence for acute fracture. Remote appearing fractures of the pubic symphysis bilaterally 2. Mild degeneration changes of the hips. 3. Large stool burden throughout the colon. [facility], , 12/19/2023 3:45 PM
--- NOTE | 2023-12-19 15:51 | CT ---
EXAMINATION TYPE: CT lumbar spine wo con CT DLP: combined dlp 1178.5 mGycm, Automated exposure control for dose reduction was used. DATE OF EXAM: 12/19/2023 3:31 PM COMPARISON: 10/17/2023. CLINICAL INDICATION: Female, 73 years old with history of Pain after fall; [facility], fell 3 weeks ago. rt side pain TECHNIQUE: Multiple axial images were obtained from the midportion of T11 through the sacroiliac saul nts. Soft tissue and bone windows in coronal and sagittal planes were obtained and reviewed. Contrast used: mL of , (None, if empty). Oral contrast used: (None, if empty). FINDINGS: Alignment: There are 5 lumbar type vertebral bodies within normal alignment. Bone: Multilevel degeneration changes throughout the spine with osteophyte formation and disc space narrowing and facet joint arthropathy. Age-indeterminate compression fracture through the L1 vertebra l body without significant retropulsion. There is at least 25-50% height loss. Discs: T12-L1: No spinal canal or neural foraminal stenosis is identified. L1-L2: Facet joint arthropathy and disc bulging result in mild spinal canal stenosis and mild bilater al neural foraminal stenosis. L2-L3: Facet joint arthropathy and disc bulging result in mild spinal canal stenosis and mild bilater al neural foraminal stenosis. L3-L4: Facet joint arthropathy and disc bulging result in mild spinal canal stenosis and mild bilater al neural foraminal stenosis. L4-L5: No spinal canal or neural foraminal stenosis is identified. L5-S1: No spinal canal or neural foraminal stenosis is identified. Other: None IMPRESSION: 1. New from 10/17/2023, progression of the compression deformity of the L1 vertebral body now with up to 50% height loss. No significant retropulsion. 2. Similar compression deformity of the T12 vertebral body. 3. No evidence for significant spinal canal or neural foraminal stenosis. [facility], , 12/19/2023 3:48 PM
[2023-12-19] MEDS: traMADol 50 MG STARTER PACK 3 TAB BTL PO STA (16:51)
[2023-12-19 16:54] VITALS: BP 110/75; PULSE 76; RESP 18
== END 2023-12-19 16:51 | disposition home or self-care (01) ==
LOC: EC 12:53
CPT/HCPCS: 72131; 72192; 93005; 96374; 96375; 99284

== ENCOUNTER → 2023-12-26 | Outpatient (CLI) | payer MEDICARE, OTHER ==
[2023-12-26 16:48] LABS: Partial Thromboplastin Time 26.1 sec (22.0-30.0); Prothrombin Time 10.9 sec (10.0-12.5)
[2023-12-26 19:58] LABS: HCT 40.3 % (37.2-46.3); HGB 13.3 g/dL (12.0-15.0); MCH 31.5 pg (27.0-32.0); MCV 95.5 FL (80.0-97.0); Mean Platelet Volume 10.2 FL (9.5-12.2); NRBC Per 100 WBC 0 X 10*3/uL (0.00-0.01); Platelet Count 261 X 10*3/uL (140-440); RBC 4.22 X 10*6/uL (4.10-5.20); RDW 13.5 % (11.5-14.5); WBC 7.07 X 10*3/uL (4.50-10.00)
[2023-12-26 20:31] LABS: ALT <5 U/L (8-44); AST 16 U/L (13-35); Albumin 4.2 g/dL (3.8-4.9); Albumin/Globulin Ratio 1.62 Ratio (1.60-3.17); Alkaline Phosphatase 100 U/L (41-126); Calcium 9.1 mg/dL (8.7-10.3); Carbon Dioxide 24.1 mmol/L (21.6-31.8); Chloride 97 mmol/L (96-109); Globulin 2.6 g/dL (1.6-3.3); Glucose 109 mg/dL (70-110); Potassium 4.4 mmol/L (3.5-5.5); Sodium 132 mmol/L (135-145); Total Bilirubin 0.3 mg/dL (0.3-1.2); Total Protein 6.8 g/dL (6.2-8.2)
== END | disposition home or self-care (01) ==
LOC: LABWHC1 15:08
PROVIDERS: ATTEND Orthopaedic Surgery
CPT/HCPCS: 36415; 80053; 85027; 85610; 85730

== ENCOUNTER 2024-01-04 10:47 | Day surgery (SDC) | payer MEDICARE, OTHER ==
[~2024-01-04 10:47] MED LIST changes: +HYDROmorphone 0.5 MG/0.5 ML SYRINGE IVP PRN; +MIDAZOLAM 2 MG/2 ML VIAL IV PRN
[2024-01-04] MEDS: GABAPENTIN 300 MG CAP PO PRN (11:55)
[2024-01-04] MEDS: ACETAMINOPHEN TAB 500 MG TAB PO PRN (11:56)
[2024-01-04] MEDS: IV FLUID CONTINUATION 1,000 ML IV ONE (12:02)
[2024-01-04] MEDS: LACTATED RINGERS 1,000 ML IV SCH (12:03)
[2024-01-04] MEDS: ONDANSETRON 4 MG/2 ML VIAL IVP PRN (12:05)
[2024-01-04] MEDS: DEXAMETHASONE SOD PHOSPHATE 4 MG/ML 1 ML VIAL IVP STA (12:06)
[2024-01-04] MEDS ORDERED: LIDOCAINE 1% INJ 10MG/ML (20 ML MDV) ONE (12:16)
[2024-01-04] MEDS ORDERED: TRANEXAMIC 1,000 MG/100ML-NACL PREMIX BAG ONE (12:16)
[2024-01-04] MEDS ORDERED: PHENYLEPHRINE 10 MG/ML VIAL ONE (12:16)
[2024-01-04] MEDS ORDERED: GLYCOPYRROLATE 0.2 MG/ML 2 ML VIAL ONE (12:16)
[2024-01-04] MEDS ORDERED: NEOSTIGMINE 1 MG/ML 10 ML VIAL ONE (12:16)
[2024-01-04] MEDS ORDERED: SUCCINYLCHOLINE CHLORIDE 200 MG/10 ML VIAL IV ONE (12:16)
[2024-01-04] MEDS ORDERED: ROCURONIUM 10 MG/ML (5 ML VIAL) IV ONE (12:16)
[2024-01-04] MEDS ORDERED: fentaNYL (PF) 50 MCG/ML 2 ML AMP ONE (12:16)
[2024-01-04] MEDS ORDERED: PROPOFOL 10 MG/ML 20 ML VIAL IV ONE (12:16)
[2024-01-04] MEDS: IOPAMIDOL M200 10 ML VIAL MISCELLANE ONE (12:47)
[2024-01-04] MEDS: LIDOCAINE 2%-EPI 1:100,000 20 ML VIAL SQ ONE ×2 (12:47)
[2024-01-04] MEDS: BUPIVACAINE (PF) 0.5% 30 ML VIAL SQ ONE ×2 (12:47)
[2024-01-04 13:17] VITALS: TEMP 97.1
--- NOTE | 2024-01-04 13:21 | P.HPOR ---
History of Present Illness H&P Date: 01/04/24 Chief Complaint: Low back pain Ms. Tucker presents with her daughter for her low back pain and L1 kyphoplasty. She has been dealing with this for the past month or so and she states it is not getting any better. She is normally somewhat independent although she struggles with dementia. This has limited her significantly and she has not been able to do her normal ADLs due to pain in her back. She was seen and worked up by Zahra Mccloud NP in the office and seen by myself. We discussed surgical vs non surgical interventions and ultimately they have elected for kyphoplasty to aid in her recovery, allow her to mobilize faster and help with her pain. We disucssed risks and benefits of the procedure at length as outlined in the risk review. Shew as ready and willing to proceed with surgery. Review of Systems 16 point ROS completed as stated in HPI. All others reviewed negative. 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 LAST SEIZURE 1 month ago approx., has fallen w/seizures in past, balance problems, USES WALKER WITH WHEELS, WEAKNESS LEFT SIDE., STATES NO MRI'S DUE TO VAGUS NERVE STIMULATOR IMPLANT. neuropathy feet. meningitis in 1988. History of Any Multi-Drug Resistant Organisms: None Reported Past Surgical History: Joint Replacement, Orthopedic Surgery Additional Past Surgical History / Comment(s): VAGUS NERVE STIMULATOR LEFT CHEST (BATTERY ), LEFT HIPPOCAMPUS REMOVED. ORIF left ankle, right shoulder hemiarthroplasty 2019, right knee replacement May 2023 Past Anesthesia/Blood Transfusion Reactions: No Reported Reaction Additional Past Anesthesia/Blood Transfusion Reaction / Comment(s): HX OF BLOOD TRANSFUSION - NO REACTION; difficult IV start with last knee replacement surg. Smoking Status: Former smoker - Past Family History Mother Family Medical History: Cancer Father Family Medical History: Cancer Medications and Allergies Home Medications Medication Instructions Recorded Confirmed Type Citalopram Hydrobromide [CeleXA] 20 mg PO HS 03/21/15 01/01/24 History Ziprasidone [Geodon] 80 mg PO BID 03/21/15 01/01/24 History Atorvastatin [Lipitor] 20 mg PO HS 11/16/15 01/01/24 History Carbidopa-Levodopa 25-100 mg 3 tab PO QAM 02/01/16 01/01/24 History [Sinemet 25-100 mg] Zonisamide [Zonegran] 200 mg PO HS 11/21/18 01/01/24 History cloBAZam [Clobazam] 30 mg PO 1500 07/21/19 01/01/24 History Acetaminophen Tab [Tylenol] 650 mg PO Q6HR PRN tab 07/23/19 01/01/24 Rx Carbidopa-Levodopa 25-100 mg 2 each PO 1500 05/03/23 01/01/24 History [Sinemet 25-100] Pregabalin 100 mg PO 1500 05/03/23 01/01/24 History Vit C/E/Zn/Coppr/Lutein/Zeaxan 1 each PO BID 05/03/23 01/01/24 History [Preservision Areds 2 Softgel] lamoTRIgine 200 mg PO TID 05/03/23 01/01/24 History Carbidopa-Levodopa 25-100 mg 2 each PO HS 05/10/23 01/01/24 History [Sinemet 25-100] LORazepam [Ativan] 1 mg PO DAILY PRN 05/10/23 01/01/24 History traMADol HCL 50 mg PO Q6H #16 tab 05/18/23 01/01/24 Rx Lidocaine 5% Patch [Lidoderm 5% 1 patch TOPICAL DAILY PRN #30 patch 12/19/23 01/01/24 Rx Patch] Meloxicam [Mobic] 15 mg PO DAILY PRN #30 tab 12/19/23 01/01/24 Rx Stool Softener 3 dose PO 1500 01/01/24 History Sennosides/Docusate Sodium [Senna 1 each PO DAILY PRN #20 capsule 01/04/24 Rx Plus 8.6-50 mg Softgel] cefaDROXiL [Duricef] 500 mg PO Q12HR #6 cap 01/04/24 Rx traMADol HCl [Ultram] 50 mg PO Q4-6H PRN #30 tab 01/04/24 Rx Allergies Allergy/AdvReac Type Severity Reaction Status Date / Time No Known Allergies Allergy Verified 01/04/24 11:12 Physical Examination Osteopathic Statement: *. No significant issues noted on an osteopathic structural exam other than those noted in the History and Physical/Consult. AOX3 NAD, daughter at bedside Non septic, non-toxic RRR, no murmur CTAB no w/r/r TTP of the thoracolumar junction in the L1 region over the SP in this spot. There is pain with ROM of the lumbar spine as well. There is 4+/5 strength in all major muscle groups of the LE and UE b/l due to her age and comorbid conditions as well as deconditioing. No focal deficits. 2/4 DTR all. SILT L2- S1 and C5-T1. 2/4 distal pulses all. neg hoffmans, neg babinski, neg clonus. Results CT reviewed demonstrates acute L1 VCF with 50% collapse and anterior wedge compression type deformity. There are old fractures at T12 and T11 noted. These are sclerotic in nature and appear healed. The L1 is new and is not healed yet. No other fractues noted in the lumbar spine at this time. No lesions. alignment otherwise stable other than local kyphotic deformity from fracture. Assessment and Plan Assessment: L1 VERTEBRAL BODY FRACTURE, COMPRESSION 50% COMPRESSION, WEDGE ANTERIOR. S/P INJURY LOW BACK PAIN COMPLEX MEDICAL PATIENT. Plan: Spine Surgery Clinical and Risk Review Karina Tucker is a 73 yo female presenting for evaluation of low back pain. It was my pleasure to have seen and examined Karina Tucker. In our visit today we have had a chance to go over subjective complaints, physi bethany examination findings and treatments including the natural course history without intervention and various interventional options. The patients imaging demonstrates L1 vertebral body fracture, 50% wedge compression. Multilevel degen changes. On physical exam, Karina Tucker demonstrates TTP of the lumbar spine over the SP of the T12-L1 region. Painful ROM of the lumbar spine. significant ADL disruption. I have explained to the patient that as their condition progresses it will cause further neurological deficits and eventual paralysis. Based on the patients imaging, physical exam, and the rapid progression and disabling nature of their symptoms, at this time I recommend surgery in the form or a: L1 kyphoplasty with biposy. I discussed the risk and benefits of this procedure at length with Karina Tucker. The patient and daughter agreed to considered pursuing the procedure abovementioned. Prior to surgery, she should follow up with her PCP (Cardio, ID, IM etc) for clearance. Questions were invited and answered, and the patient wishes to proceed as outlined below. Currently, I am recommendin. L1 kyphoplasty with biposy. 2. cleared by anesthesia and PCP for surgery 3. Review of surgical risks and benefits as well as an educational packet on the proposed surgical procedure. Risks: All surgical procedures come with inherent risks, including those related to positioning, anesthesia, intraoperative findings, and postoperative complications. It is important to understand that surgery does not come with any guarantee of a successful outcome as complications and adverse events are always possible. The patient was given a handout in office today discussing the surgical procedure and risks associated with the intervention, both of which were discussed with the patient. These risks include but are not limited to the following: * Experiencing same, different or even worse symptoms in back, neck, arms, or legs compared to before surgery. * Requiring further surgery or other forms of treatment presently or at some time in the future at same or other levels of the intended spine surgery. * On an extreme but fortunately relatively rare basis severe complication such as blindness, stroke, heart attack, temporary and/or permanent nerve injury, paralysis, coma, or may occur, sometimes without known explanation. * Surgical complications may include but are not limited to risk of infection, fluid accumulation in the surgical dissection site, including a seroma or hematoma, that requires additional surgery, wound drainage, bleeding, new numbness or weakness, vision changes/loss, spinal fluid leakage, non-healing and/or infected incision, headaches, difficulty or inability to swallow, hoarseness, hemopneumothorax, pneumothorax, impotence, retrograde ejaculation, vaginal dryness; injury to nerves, spinal cord, blood vessels, lymphatics or other vital organs (i.e., bowel injury, injury to the great vessels); heterotopic bone formation; complications related to the hardware such as screws, rods, cages including misplaced hardware, device failure, instrumentation at the wrong spine level, hardware fracture/breakage, or hardware loosening; vertebral failure of the spinal column above or below the newly placed hardware; retained surgical instrumentations or devices and the need for further surgery. * Medical risks of the planned spine surgery include but are not limited to generalized Infections to the whole body or local areas outside of the surgical site (sepsis), heart attack, bleeding, anaphylaxis, meningitis, seizu re, epilepsy, hearing loss, burn moralez, laceration of the head or other areas of the body, bruising, hypersensitivity of the skin, bladder over distension; allergic reaction; shoulder injury related to positioning; fat, blood and air clots to other areas of the body like heart, lungs, brain; failure of internal organs such as lungs, kidneys, liver and excessive bleeding. If blood transfusions are necessary, note that transfusions may cause intolerance reactions such as anaphylaxis or other complex reactions. * Despite best efforts, the results of spine surgery might not heal in terms of bone, soft tissues such as skin, fascia, ligaments, and joints. Additionally, in order to achieve best possible results, spine surgery may be carried out beyond the initially planned levels and involve decompression, fusion including insertion of hardware at levels other than the original intended area of surgical interest change some portions of the procedure in order to ensure the best possible outcomes. * With spine surgery and spinal fusion, there are different off label uses of instrumentation (devices, implants and hardware) as well as biological substances (bone morphogenic proteins, demineralized bone matrix) as well as using extra bone from allograft sources (i.e. cadaver bone) or autograft (iliac crest bone, ribs, or the spine itself). The patient has been given information about these practices and their inherent risks and benefits. The patient has had a chance to review all the listed information, has been given print outs detailing this information, and has had all his/her questions answered to their satisfaction. It was my pleasure to have seen and examined Karina Tucker. In our visit today we have had a chance to go over my understanding of our patient's current condition, the natural course history without intervention and various interventional options. Questions were invited and answered, and the patient wishes to proceed as outlined above. I have seen and examined the patient for 25 minutes and we have spent more than 50% of the time in repeat and detailed counseling about the patient's condition, its natural course history with out and as much as can be predicted with surgery and re-review of various surgical treatment options. In conclusion, Karina Tucker and daughter requested we proceed with the above suggested surgery and are willing to accept risks and limitations of the suggested surgery as nature of the disease process and our best attempts at treatment for the condition. Thank you again for allowing us to be part of your patient's care. Please don't hesitate to contact me if you have any further questions. Signed and authenticated by: [facility] [address] [place] [address]
--- NOTE | 2024-01-04 13:23 | P.OP ---
Date of Procedure: 01/04/24 Preoperative Diagnosis: L1 VERTEBRAL BODY FRACTURE, COMPRESSION 50% COMPRESSION, WEDGE ANTERIOR. S/P INJURY LOW BACK PAIN COMPLEX MEDICAL PATIENT. Postoperative Diagnosis: L1 VERTEBRAL BODY FRACTURE, COMPRESSION 50% COMPRESSION, WEDGE ANTERIOR. S/P INJURY LOW BACK PAIN COMPLEX MEDICAL PATIENT. Procedure(s) Performed: L1 kyphoplasty with biopsy Implants: rosales cement Anesthesia: GETA Surgeon: Castillo Chester Estimated Blood Loss (ml): 5 IV fluids (ml): 400 Urine output (ml): 0 Pathology: none sent Condition: stable Disposition: PACU Indications for Procedure: Karina Tucker is a 73 yo female presenting for evaluation of low back pain. It was my pleasure to have seen and examined Karina Tucker. In our visit today we have had a chance to go over subjective complaints, physical examination findings and treatments including the natural course history without intervention and various interventional options. The patients imaging demonstrates L1 vertebral body fracture, 50% wedge compression. Multilevel degen changes. On physical exam, Karina Tucker demonstrates TTP of the lumbar spine over the SP of the T12-L1 region. Painful ROM of the lumbar spine. significant ADL disruption. I have explained to the patient that as their condition progresses it will cause further neurological deficits and eventual paralysis. Based on the patients imaging, physical exam, and the rapid progression and disabling nature of their symptoms, at this time I recommend surgery in the form or a: L1 kyphoplasty with biposy. I discussed the risk and benefits of this procedure at length with Karina Tucker. The patient and daughter agreed to considered pursuing the procedure abovementioned. Prior to surgery, she should follow up with her PCP (Cardio, ID, IM etc) for clearance. Questions were invited and answered, and the patient wishes to proceed as outlined below. Currently, I am recommendin. L1 kyphoplasty with biposy. Description of Procedure: Lumbar (1) Kyphoplasty The patient was seen and examined in the preoperative area. All preoperative protocols were followed. Informed consent was obtained, risks and benefits of the procedure were discussed at length. Risks including bleeding infection damage to the surrounding tissue and risk of reoperation were discussed with the patient. Risk of anesthesia up to and including was discussed with the patient. These are outlined in the risk review. They were willing to accept these risks and all the risks of surgery. The patient was given a weight-based dose of antibiotics in the form of 2 g Ancef. The patient was seen and evaluated by the anesthesia team who deemed them fit for surgery. The site was marked, the patient was willing to proceed with the procedure. The patient was transferred to the operative suite by the Department of anesthesia. They were then drifted off to sleep by the department anesthesia and GETA was performed. The patient tolerated this well. Once confirmation of lines and ventilation the patient was transferred to a prone Gio table very carefully. All bony prominences including wrists, elbows, axilla, chest, hips, and thighs, and feet were padded very well. Special attention was paid to the genitalia, and these were padded accordingly. SCDs were placed on bilateral lo wer extremities and were connected. Arms were well padded and placed on arm boards up and out in the 90/90 position. Once in position, again we confirmed good ventilation capabilities and that lines were running appropriately. The patients Lumbar spine was then exposed. 1010s were placed outlining the incision site. Standard alcohol was used to clean the incision site and allowed to dry. C-arm was used to needle localize the pedicles at L1 and bio-jemma the patient and confirm level for incision which was marked with a skin marker. Operative briefing was performed with all teams and everyone in agreement to proceed. The patient was then prepped and draped in a normal sterile fashion. Timeout was then performed, and all parties agreed with the procedure to be performed. Skin charlotte was made. Jamshitdi was passed into the L1 vertebral body via the pedicle. This was done with biplane fluoroscopy. Once in good position in the body the trochar is removed. Biopsy needle was passed into the body and a biopsy was taken. Drill was then passed and biopsy material taken from drill as well. Curette then used to reduce endplate and create more space. Balloon was then passed an inflated which showed good reduction of endplate on AP and Lateral and confirmed central placement. The cement was then placed and pt remained stable. Good fill of cement was seen without extravasation. Once good fill, the Jamshedi was removed and the wound irrigated. The skin was closed with a simple stitch and dressed with a bandaid. The patient was then transferred off the table back to their hospital bed a- traumatically. They were extubated by the department of anesthesia. They were then transferred to PACU in stable condition having tolerated the procedure with no complications.
--- NOTE | 2024-01-04 13:30 | FL ---
EXAMINATION TYPE: FL guidance operating room, XR lumbar spine 2 or 3V DATE OF EXAM: 01/04/2024 1:20 PM COMPARISON: Pre Operative Images if available both CT/MRI or plain film CLINICAL INDICATION: Female, 73 years old with history of L1 Kyphoplasty; TECHNIQUE: FL guidance operating room, XR lumbar spine 2 or 3V, multiple fluoroscopic images provided for procedure. Total fluoroscopy time: 46 seconds Total submitted images to PACS: 7 DAP: 14.352 mGym2 Gycm2 uGym2 cGycm2 or equivalent. FINDINGS: Fluoroscopic images during kyphoplasty. Cement does extend outside the margin of the vertebral body o n frontal view to the left. No immediate complication identified. No evidence of fracture. Multilevel degeneration changes of the spine. Wedging of the L1 vertebral body. IMPRESSION: 1. No evidence for intraoperative complication. 2. Please see the operative/procedural note for further details. [facility], , 01/04/2024 1:28 PM
[2024-01-04 14:24] VITALS: RESP 16
[2024-01-04] MEDS: traMADol 50 MG TAB PO STA (14:38)
[2024-01-04 15:18] VITALS: BP 128/61; PULSE 84
== END 2024-01-04 15:29 | disposition home or self-care (01) ==
LOC: OR 10:47
PROVIDERS: ATTEND Orthopaedic Surgery
DX: S32.010A Wedge compression fracture of first lumbar vertebra, initial encounter for closed fracture (principal); F03.90 Unspecified dementia, unspecified severity, without behavioral disturbance, psychotic disturbance, mood disturbance, and anxiety; E78.5 Hyperlipidemia, unspecified; G40.909 Epilepsy, unspecified, not intractable, without status epilepticus; M19.90 Unspecified osteoarthritis, unspecified site; Z79.1 Long term (current) use of non-steroidal anti-inflammatories (NSAID); Z79.899 Other long term (current) drug therapy; Z87.891 Personal history of nicotine dependence; Z96.611 Presence of right artificial shoulder joint; Z96.651 Presence of right artificial knee joint; Z96.82 Presence of neurostimulator
CPT/HCPCS: 88307; 72100; 22514; 20220; J0330; J1100; J2710; J0690; J2405; J2003; J3010; J2704; Q9966; J2371; J0665; J1596

== ENCOUNTER → 2024-02-07 | Outpatient (CLI) | payer MEDICARE, OTHER ==
[2024-02-07 13:41] VITALS: BP 107/60; PULSE 85; RESP 16
--- NOTE | 2024-02-07 15:23 | P.PAINPG ---
PQRS Measure Charge Sheet Comment: HISTORY OF PRESENT ILLNESS: A 73 yr old female w son at side as a referral from Dr Chester presents today w severe and chronic secondary to radiculopathy, spondylosis and facet arthropathy without myelopathy for evaluation. Pt states pain level is provoked at 5-6 /10 in intensity, constant, localized in the lower lumbar spine, predominantly axial, achy in character without shooting pain . Pain is provoked by standing/ walking for periods > 20 min. Pain is alleviated by PT x 10 wks which she is currently in, physician guided home stretches daiy since Summer 2023, heat, ice, medications (Tramadol, Lyrica, Robaxin, Mobic, Lidoderm, Tyl), use of a wheelchair for ambulatory assistance, repositioning and rest . Oswestry axial pain score at 27. PMH: OA, Hyperlipidemia, Memory Impairment, Seizure Disorder (1988), Parkinson's Disorder, MDD, OP PSH: L1 Kyphoplasty (Jan 2024), Vagus Nerve Stimulator Implant, L Hippocampus Resection, L Ankle ORIG, R Shoulder Hemiarthroplasty (2019), R Knee Replacement (2023) SH: Former tobacco user, No ETOH abuse, No illicit drug use. Uses walker for ambulation FH: Mo- CA, Fa- CA All: See list Meds: See list REVIEW OF ORGAN SYSTEMS: CONSTITUTIONAL: No fevers or chills. No recent weight loss. NEUROLOGICAL: + numbness and tingling along the distal extremities. No seizure disorders or headaches. MUSCULOSKELETAL: + pain PSYCHIATRIC: Denies current depression or suicidal t houghts. Physical Examinations : Constitutional : Cooperative , not in acute distress . Neurologic : Cranial nerve II to XII intact. No focal neurological deficits. Psychiatric : alert & oriented x 3. Matching mood & appropriate affect. Judgment & insight intact. Musculoskeletal : Cervical Spine Motor strength in the deltoid and biceps: Normal right side. Normal Left side Motor strength biceps and the wrist extensors: Normal right side . Normal left side Motor strength in the triceps muscle: Normal right side. Normal left side Deep tendon reflexes: Normal at the bi ceps. Normal at Brachioradialis. Normal at triceps Vertebral body tenderness to deep palpation over Cervical facet loading test: positive bilaterally Spurling test: positive bilaterally Neck distraction test: positive bilaterally Nguyen sign: positive bilaterally Lumbar spine Motor strength lower extremities ,thigh and legs 5/5 Right side , 5/5 Left side Deep tendon reflexes : Normal Knee Jerk. Normal Ankle Jerk Vertebral body tenderness over Howell Test positive Lumbar facet Loading Test: positive Right / positive Left L4-L5, L5-S1 Range of motion of the lumbar spine Flexion 30 degrees, extension 10 degrees Straight Leg Raise test: Left/ Right positive at degrees Jessica test: positive right / positive left. Severe tenderness over the Sacroiliac joint on the Right / Left sides Gaenslen test: positive bilaterally Seated flexion test: positive bilaterally. Sacral spine : Severe tenderness over the Sacroiliac joint: right side / left side Range of motion: Flexion of the lumbar spine <60 degrees Range of motion: Extension of the lumbar spine <20 degrees Gaenslen's Test positive Jessica test: positive right side / left side Thigh Thrust Test Sacral Thrust Test Imaging: CT non contrast lumbar spine from 10/24/23 reviewed Assessment/ Plan : L4, L5 grade I anterolisthesis, Recommendation of BL MBB L4-L5, L5-S1 #1. Risks, benefits of procedure discussed and patient verbalized understanding. Admits to anti- coagulant use or medical history of diabetes. Protocol for discontinuation/ continuation of medications leslee procedure discussed. Minimal anesthesia provided, if clinically indicated, consisting of Versed and Fentanyl. All questions answered. I have spent greater than 30 minutes on patient care today. Dr Kumar was available by phone for the evaluation of this patient. The time was used to review the medical records including relevant urine studies and Prescription history (MAPs), review of the available imaging, evaluation and examination of the patient, coordination of care with the medical staff and if applicable referring physicians, as well as creation of the medical record PQRS Narrative: Smoking Status Former smoker Home Medications: Ambulatory Orders Citalopram Hydrobromide [CeleXA] 20 mg PO HS 03/21/15 Ziprasidone [Geodon] 80 mg PO BID 03/21/15 Atorvastatin [Lipitor] 20 mg PO HS 11/16/15 Carbidopa-Levodopa 25-100 mg [Sinemet 25-100 mg] 3 tab PO QAM 02/01/16 Zonisamide [Zonegran] 200 mg PO HS 11/21/18 cloBAZam [Clobazam] 30 mg PO 1500 07/21/19 Acetaminophen Tab [Tylenol] 650 mg PO Q6HR PRN tab 07/23/19 Carbidopa-Levodopa 25-100 mg [Sinemet 25-100] 2 each PO 1500 05/03/23 Pregabalin 100 mg PO 1500 05/03/23 Vit C/E/Zn/Coppr/Lutein/Zeaxan [Preservision Areds 2 Softgel] 1 each PO BID 05/03/23 lamoTRIgine 200 mg PO TID 05/03/23 Carbidopa-Levodopa 25-100 mg [Sinemet 25-100] 2 each PO HS 05/10/23 LORazepam [Ativan] 1 mg PO DAILY PRN 05/10/23 traMADol HCL 50 mg PO Q6H #16 tab 05/18/23 Lidocaine 5% Patch [Lidoderm 5% Patch] 1 patch TOPICAL DAILY PRN #30 patch 12/19/23 Meloxicam [Mobic] 15 mg PO DAILY PRN #30 tab 12/19/23 Stool Softener 3 dose PO 1500 01/01/24 Sennosides/Docusate Sodium [Senna Plus 8.6-50 mg Softgel] 1 each PO DAILY PRN #20 capsule 01/04/24 cefaDROXiL [Duricef] 500 mg PO Q12HR #6 cap 01/04/24 traMADol HCl [Ultram] 50 mg PO Q4-6H PRN #30 tab 01/04/24 Controlled Substance Measures - Controlled Substance Measures Is patient prescribed a controlled substance at discharge?: No
== END ==
LOC: PNWHC3 13:02
PROVIDERS: ATTEND Specialist
DX: M43.16 Spondylolisthesis, lumbar region (principal); M41.9 Scoliosis, unspecified; Z87.891 Personal history of nicotine dependence
CPT/HCPCS: 99211

== ENCOUNTER 2024-03-11 07:47 | Day surgery (SDC) | payer MEDICARE ==
[2024-03-11] MEDS ORDERED: LACTATED RINGERS 1,000 ML IV SCH (08:06)
[2024-03-11 08:23] VITALS: RESP 16; TEMP 97
[2024-03-11] MEDS: SODIUM CHLORIDE 0.9% 250 ML IV ONE (08:28)
[2024-03-11 09:03] LABS: Glucose,Whole Blood 90 mg/dL (70-110)
[2024-03-11 09:17] VITALS: BP 79/50; PULSE 76
== END 2024-03-11 09:18 | disposition home or self-care (01) ==
LOC: ORPAIN 07:47
PROVIDERS: ATTEND Pain Medicine Interventional Pain Medicine
DX: M47.816 Spondylosis without myelopathy or radiculopathy, lumbar region (principal); Z53.9 Procedure and treatment not carried out, unspecified reason

== ENCOUNTER 2024-03-11 09:12 | Emergency (ER) | payer MEDICARE ==
[2024-03-11 10:08] VITALS: RESP 18
[2024-03-11] MEDS: SODIUM CHLORIDE 0.9% 1,000 ML IV ONE (10:40)
[2024-03-11 10:42] LABS: Basophils % (A) 1 %; Eosinophils # (A) 0.1 k/uL (0-0.7); Eosinophils % (A) 1 %; HCT 40.4 % (34.0-46.0); HGB 13.2 gm/dL (11.4-16.0); Lymphocytes # (A) 2.1 k/uL (1.0-4.8); Lymphocytes % (A) 36 %; MCH 31.1 pg (25.0-35.0); MCHC 32.6 g/dL (31.0-37.0); MCV 95.5 fL (80.0-100.0); Mean Platelet Volume 7.5; Monocytes # (A) 0.4 k/uL (0-1.0); Monocytes % (A) 7 %; Neutrophils # (A) 3.2 k/uL (1.3-7.7); Neutrophils % (A) 53 %; Platelet Count 261 k/uL (150-450); RBC 4.23 m/uL (3.80-5.40)
[2024-03-11 10:50] LABS: Potassium 4.4 mmol/L (3.5-5.1)
[2024-03-11 10:51] LABS: ALT <6 U/L (4-34); AST 17 U/L (14-36); African American GFR (CKD) 78 (>60 ml/min/1.73 sqM); Albumin 4.1 g/dL (3.5-5.0); Alkaline Phosphatase 81 U/L (38-126); Anion Gap 7 mmol/L; Appearance,Urine Clear (Clear); Bilirubin,Urine Negative (Negative); Blood Urea Nitrogen 11 mg/dL (7-17); Blood,Urine Negative (Negative); Calcium 8.9 mg/dL (8.4-10.2); Carbon Dioxide 30 mmol/L (22-30); Chloride 104 mmol/L (98-107); Color,Urine Yellow; Glucose 83 mg/dL (74-99); Glucose,Urine (UA) Negative (Negative); Ketones,Urine Negative (Negative); Leukocyte Esterase,Urine Negative (Negative); Nitrite,Urine Negative (Negative); Non-African American GFR(CKD) 68 (>60 ml/min/1.73 sqM); PH, Urine 6.5 (5.0-8.0); Protein,Urine Negative (Negative); Sodium 141 mmol/L (137-145); Specific Gravity,Urine 1.012 (1.001-1.035); Total Bilirubin 0.3 mg/dL (0.2-1.3); Total Protein 6.9 g/dL (6.3-8.2); Urobilinogen,Urine <2.0 mg/dL (<2.0)
--- NOTE | 2024-03-11 11:17 | ED ---
General Adult HPI - General Chief complaint: Recheck/Abnormal Lab/Rx Stated complaint: abn labs Time Seen by Provider: 03/11/24 10:00 Source: patient, RN notes reviewed, old records reviewed Mode of arrival: wheelchair Limitations: no limitations - History of Present Illness Initial comments: Patient is a 73-year-old female who presents emergency department complaining of asymptomatic hypotension. Patient was up in preop and pain clinic upstairs to receive injections in her back. Was found to be hypotensive at that time. Was not eating or drinking any food or water this morning for the injections. Was asymptomatic. Sent here for further evaluation. Patient was not hypotensive here in the department. Blood pressures remained systolic between 100-125 throughout her stay. She has no symptoms. Presents for further evaluation and clearance prior to going back upstairs. - Related Data Home Medications Medication Instructions Recorded Confirmed Citalopram Hydrobromide [CeleXA] 20 mg PO HS 03/21/15 03/11/24 Ziprasidone [Geodon] 80 mg PO BID 03/21/15 03/11/24 Atorvastatin [Lipitor] 20 mg PO HS 11/16/15 03/11/24 Carbidopa-Levodopa 25-100 mg 3 tab PO QAM 02/01/16 03/11/24 [Sinemet 25-100 mg] Zonisamide [Zonegran] 200 mg PO HS 11/21/18 03/11/24 cloBAZam [Clobazam] 30 mg PO 1500 07/21/19 03/11/24 Carbidopa-Levodopa 25-100 mg 2 each PO 1500 05/03/23 03/11/24 [Sinemet 25-100] Pregabalin 100 mg PO 1500 05/03/23 03/11/24 Vit C/E/Zn/Coppr/Lutein/Zeaxan 1 each PO BID 05/03/23 03/11/24 [Preservision Areds 2 Softgel] lamoTRIgine 200 mg PO TID 05/03/23 03/11/24 Carbidopa-Levodopa 25-100 mg 2 each PO HS 05/10/23 03/11/24 [Sinemet 25-100] LORazepam [Ativan] 1 mg PO DAILY PRN 05/10/23 03/11/24 Stool Softener 3 dose PO 1500 01/01/24 03/11/24 methocarbamoL 750 mg PO ONCE PRN 03/11/24 03/11/24 traMADol HCl [Ultram] 50 mg PO Q4HR PRN 03/11/24 03/11/24 Previous Rx's Medication Instructions Recorded Acetaminophen Tab [Tylenol] 650 mg PO Q6HR PRN tab 07/23/19 Lidocaine 5% Patch [Lidoderm 5% 1 patch TOPICAL DAILY PRN #30 patch 12/19/23 Patch] Allergies Allergy/AdvReac Type Severity Reaction Status Date / Time No Known Allergies Allergy Verified 03/11/24 12:50 Review of Systems ROS Statement: Those systems with pertinent positive or pertinent negative responses have been documented in the HPI. Review of Systems: CONST: Denies fever EYES: Denies blurry vision ENT: Denies nasal congestion C/V: Denies Chest pain RESP: Denies shortness of breath GI: Denies abdominal pain : Denies dysuria SKIN: Denies rash. MSK: Denies joint pain. NEURO: Denies headache ROS Other: All systems not noted in ROS Statement are negative. 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 LAST SEIZURE 1 month ago approx., has fallen w/seizures in past, balance problems, USES WALKER WITH WHEELS, WEAKNESS LEFT SIDE., STATES NO MRI'S DUE TO VAGUS NERVE STIMULATOR IMPLANT. neuropathy feet. meningitis in 1988. History of Any Multi-Drug Resistant Organisms: None Reported Past Surgical History: Joint Replacement, Orthopedic Surgery Additional Past Surgical History / Comment(s): VAGUS NERVE STIMULATOR LEFT CHEST (BATTERY ), LEFT HIPPOCAMPUS REMOVED. ORIF left ankle, right shoulder hemiarthroplasty 2019, right knee replacement May 2023 Past Anesthesia/Blood Transfusion Reactions: No Reported Reaction Additional Past Anesthesia/Blood Transfusion Reaction / Comment(s): HX OF BLOOD TRANSFUSION - NO REACTION; difficult IV start with last knee replacement surg. Past Psychological History: Anxiety, Depression, Schizoaffective Disorder Smoking Status: Former smoker - Past Family History Mother Family Medical History: Cancer Father Family Medical History: Cancer General Exam - General Exam Comments Initial Comments: General: Appears in no acute distress. HEAD: Normal with no signs of head trauma. EYES: PERRLA, EOMI, conjunctiva normal, no discharge. ENT: Hearing grossly intact, normal oropharynx. RESPIRATORY: Clear breath sounds bilaterally. No wheezes, rales, or rhonchi. C/V: Regular rate and rhythm. S1 and S2 auscultated, no edema, peripheral pulses 2+ and intact throughout ABD: Abd is soft, nontender, nondistended EXT: Normal range of motion, no obvious deformity SKIN: No rashes or lesions observed on exposed skin. NEURO: Alert and oriented x 4. Cranial nerves II-XII intact. No focal sensory or strength deficits. Limitations: no limitations Course Vital Signs 03/11/24 03/11/24 03/11/24 09:14 10:07 10:19 Temperature 97.5 F L Pulse Rate 72 71 74 Respiratory 16 18 18 Rate Blood Pressure 103/64 107/71 124/78 O2 Sat by Pulse 100 98 95 Oximetry 03/11/24 11:00 Temperature 98 F Pulse Rate 76 Respiratory 18 Rate Blood Pressure 114/66 O2 Sat by Pulse 98 Oximetry Medical Decision Making - Medical Decision Making Was pt. sent in by a medical professional or institution (, PA, UNEMPLOYMENT SPECIALIST, urgent care, hospital, or custodial...) When possible be specific @ -No Did you speak to anyone other than the patient for history (EMS, parent, family, police, friend...)? What history was obtained from this source @ -No Did you review nursing and triage notes (agree or disagree)? Why? @ -I reviewed and agree with nursing and triage notes Were old charts reviewed (outside hosp., previous admission, EMS record, old EKG, old radiological studies, urgent care reports/EKG's, custodial records)? Report findings @ -No old charts were reviewed Differential Diagnosis (chest pain, altered mental status, abdominal pain women, abdominal pain men, vaginal bleeding, weakness, fever, dyspnea, syncope, headache, dizziness, GI bleed, back pain, seizure, CVA, palpatations, mental health, musculoskeletal)? @ -Dehydration, electrolyte abnormality, this list is not all inclusive. EKG interpreted by me (3pts min.). @ -As above X-rays interpreted by me (1pt min.). @ -None done CT interpreted by me (1pt min.). @ -None done U/S interpreted by me (1pt. min.). @ -None done What testing was considered but not performed or refused? (CT, X-rays, U/S, labs)? Why? @ -None What meds were considered but not given or refused? Why? @ -None Did you discuss the management of the patient with other professionals (professionals i.e. , PA, UNEMPLOYMENT SPECIALIST, lab, RT, psych nurse, social science teacher, senior merchandiser, teacher, rating officer, residential case manager)? Give summary @ -No Was smoking cessation discussed for >3mins.? @ -No Was critical care preformed (if so, how long)? @ -No Were there social determinants of health that impacted care today? How? (Homelessness, low income, unemployed, alcoholism, drug addiction, transportation, low edu. Level, literacy, decrease access to med. care, snf, rehab)? @ -No Was there de-escalation of care discussed even if they declined (Discuss DNR or withdrawal of care, Hospice)? DNR status @ -No What co-morbidities impacted this encounter? (DM, HTN, Smoking, COPD, CAD, Cancer, CVA, ARF, Chemo, Hep., AIDS, mental health diagnosis, sleep apnea, morbid obesity)? @ -None Was patient admitted / discharged? Hospital course, mention meds given and route, prescriptions, significant lab abnormalities, going to OR and other pertinent info. @ -Patient presents from pain clinic preop over concern for transient hypotension. Hypotension resolved up there and is currently resolved. We will monitor the patient for a few hours as well as obtain basic labs and EKG. She was given a 1 L fluid bolus. Vitals currently within acceptable limits. She was in agreement this plan. She has no symptoms. Laboratory studies all within acceptable limits. EKG shows no signs of acute ischemia. I obtained the patient. She is still having no symptoms and would like to try to go back up to preop for workup. Patient was in agreement with plan for disc harge. I believe this is reasonable. Strict return precautions discussed. I discussed with Dr. Lafleur the patient's PCP who was in agreement this plan. We called preop who agreed to accept the patient back upstairs. Patient discharged back to pain clinic floor. I instructed the patient to follow up with their PCP in the next 1-3 days. I explained that the patient should return to the emergency department if they experience any worsening symptoms. Strict return precautions were discussed with the patient. The patient expressed understanding of these instructions. I answered all questions that the patient had. The patient was discharged home in good condition with their prescriptions and follow up information. Undiagnosed new problem with uncertain prognosis? @ -No Drug Therapy requiring intensive monitoring for toxicity (Heparin, Nitro, Insulin, Cardizem)? @ -No Were any procedures done? @ -No Diagnosis/symptom? @ -Transient hypotension Acute, or Chronic, or Acute on Chronic? @ -Acute Uncomplicated (without systemic symptoms) or Complicated (systemic symptoms)? @ -Uncomplicated Side effects of treatment? @ -No Exacerbation, Progression, or Severe Exacerbation? @ -No Poses a threat to life or bodily function? How? (Chest pain, [place], [place], pneumonia, PE, COPD, DKA, ARF, appy, cholecystitis, CVA, Diverticulitis, Homicidal, Suicidal, threat to staff... and all critical care pts) @ -Unlikely - Lab Data Result diagrams: 03/11/24 10:06 03/11/24 10:06 Lab Results 03/11/24 03/11/24 03/11/24 Range/Units 10:06 10:06 10:06 WBC 6.0 (3.8-10.6) k/uL RBC 4.23 (3.80-5.40) m/uL Hgb 13.2 (11.4-16.0) gm/dL Hct 40.4 (34.0-46.0) % MCV 95.5 (80.0-100.0) fL MCH 31.1 (25.0-35.0) pg MCHC 32.6 (31.0-37.0) g/dL RDW 13.0 (11.5-15.5) % Plt Count 261 (150-450) k/uL MPV 7.5 Neutrophils % 53 % Lymphocytes % 36 % Monocytes % 7 % Eosinophils % 1 % Basophils % 1 % Neutrophils # 3.2 (1.3-7.7) k/uL Lymphocytes # 2.1 (1.0-4.8) k/uL Monocytes # 0.4 (0-1.0) k/uL Eosinophils # 0.1 (0-0.7) k/uL Basophils # 0.0 (0-0.2) k/uL Sodium 141 (137-145) mmol/L Potassium 4.4 (3.5-5.1) mmol/L Chloride 104 (98-107) mmol/L Carbon Dioxide 30 (22-30) mmol/L Anion Gap 7 mmol/L BUN 11 (7-17) mg/dL Creatinine 0.86 (0.52-1.04) mg/dL Est GFR (CKD-EPI)AfAm 78 (>60 ml/min/1.73 sqM) Est GFR (CKD-EPI)NonAf 68 (>60 ml/min/1.73 sqM) Glucose 83 (74-99) mg/dL Calcium 8.9 (8.4-10.2) mg/dL Total Bilirubin 0.3 (0.2-1.3) mg/dL AST 17 (14-36) U/L ALT <6 (4-34) U/L Alkaline Phosphatase 81 (38-126) U/L Total Protein 6.9 (6.3-8.2) g/dL Albumin 4.1 (3.5-5.0) g/dL Urine Color Yellow Urine Appearance Clear (Clear) Urine pH 6.5 (5.0-8.0) Ur Specific [place] 1.012 (1.001-1.035) Urine Protein Negative (Negative) Urine Glucose (UA) Negative (Negative) Urine Ketones Negative (Negative) Urine Blood Negative (Negative) Urine Nitrite Negative (Negative) Urine Bilirubin Negative (Negative) Urine Urobilinogen <2.0 (<2.0) mg/dL Ur Leukocyte Esterase Negative (Negative) - EKG Data -: EKG Interpreted by Me EKG Comments: 12-lead Electrocardiogram Interpretation Note EKG was reviewed and interpreted by myself. 12-lead ECG performed at 0959 is interpreted by me as revealing normal sinus rhythm at a rate of 69 beats per minute. [place] is normal. DC interval is 154 ms, QRS duration is 75 ms, QTc is 416 ms. Isolated T wave inversion lead III.. There were no ST or T wave abnormalities to suggest myocardial ischemia or injury. R wave progression across the precordium was satisfactory. By my interpretation this EKG is non- diagnostic for acute ischemia. Disposition Clinical Impression: Transient hypotension Disposition: HOME SELF-CARE Condition: Good Additional Instructions: Follow-up with Dr. Looney in the office this week within the next 1 to 3 days if you have persistent issues or complaints. He will be discharged back to preop where they may be able to complete the procedure you were originally scheduled for. Workup in the emergency department today was unremarkable. Watch you for multiple hours with normal blood pressures throughout. Unknown what caused the transient hypotension, possible dehydration. Is patient prescribed a controlled substance at d/c from ED?: No Referrals: Javier Looney MD [Primary Care Provider] - 1-2 days Time of Disposition: 11:16
[2024-03-11 11:22] VITALS: BP 114/66; PULSE 76; TEMP 98
== END 2024-03-11 11:27 | disposition home or self-care (01) ==
LOC: EC 09:12
DX: I95.89 Other hypotension (principal); Z87.891 Personal history of nicotine dependence
CPT/HCPCS: 36415; 80053; 81003; 85025; 93005; 96360; 99285

== ENCOUNTER 2024-03-11 11:59 | Day surgery (SDC) | payer MEDICARE ==
[2024-03-11] MEDS: SODIUM CHLORIDE 0.9% 250 ML IV ONE (12:22)
[2024-03-11 12:45] VITALS: TEMP 98.8
[2024-03-11] MEDS ORDERED: fentaNYL (PF) 50 MCG/ML 2 ML AMP ONE (13:57)
[2024-03-11] MEDS ORDERED: ROPIVACAINE 5MG/ML 20ML VIAL ONE (13:57)
--- NOTE | 2024-03-11 14:18 | P.PCN ---
Description of Procedure: Preprocedure diagnosis. 1. Lumbar spondylosis with facet joint arthropathy without myelopathy. 2. Lumbar degenerative disc disease. Postprocedure diagnosis. As above. Procedure done. BilateralLeft diagnostic block with local anesthetics at L3, L4, L5 medial branch to target the facet joint L4- 5 and L5-S1 with fluoroscopic guidance (fluoroscopy images are available in the radiology department) . Anesthesia. Moderate sedation with intravenous 50 fentanyl and local infiltration with local anesthetics. In OR, continuous pulse ox, EKG, blood pressure and verbal communication was maintained. Time. Blood loss. Minimal. Indication. The patient has low back pain secondary to lumbar facet joint arthropathy. Discussed the procedure and alternative and complications which includes infection, bleeding, nerve damage, paralysis ,aggravation of pain. Patient understands and all questions were answered. Patient iunderstands that if any pain relief occurs it will last for a few hours to a few days maximum. Procedure description. After getting consent patient was taken in the OR in prone position. Back prepped with chlorhexidine and draped in sterile fashion. After injecting 5 mL of plain 1% lidocaine subcutaneously, a 22-gauge spinal needle was introduced under tunnel vision of the fluoroscope at the junction of the superior articular process with RIGHT ala of the sacrum. With slight oblique fluoroscope, after injecting 5 mL of plain 1% lidocaine subcutaneously, a 22-gauge spinal needle was introduced under tunnel vision of the fluoroscope at the junction of the superior articular process with RIGHT L5 transverse process, junction of the superior articular process with the RIGHT L4 transverse process. Negative CSF, negative blood, negative paresthesia. After needle position confirmation by AP and crosstable lateral view, after negative aspiration, half milliliters of solution were injected at each point. Total 1- 1/2 mL of solution was injected on the right side which consists of 0.5% ropivacaine. In exactly same way, LEFT sided injections were done at the following 3 points. Junction of the superior articular process with left ala of the sacrum, junction of the superior articular process with the left L5 transverse process, junction of the superior articular process with left L4 adams sverse process using 0.5 mL of solution at each point. Total 1-1/2 mL of solution was injected on the left side which consists of 0.5% ropivacaine . Spinal needles were taken out and bandages were applied. Disposition. Patient tolerated the procedure well. No complication. Discharged home in stable condition
[2024-03-11] MEDS: IV FLUID CONTINUATION 1,000 ML IV ONE (14:25)
[2024-03-11 14:43] VITALS: BP 149/84; PULSE 86; RESP 17
--- NOTE | 2024-03-11 15:09 | FL ---
EXAMINATION TYPE: FL guided pain mgmt statistic DATE OF EXAM: 03/11/2024 FLUOROSCOPY BILAT LUMBAR FACET BLOCK 3 LEVELS, 44SEC FL TIME, [id number] images are submitted. [facility], , 03/11/2024 3:06 PM
== END 2024-03-11 15:03 | disposition home or self-care (01) ==
LOC: ORPAIN 11:59
PROVIDERS: ATTEND Anesthesiology
DX: M47.816 Spondylosis without myelopathy or radiculopathy, lumbar region (principal)
CPT/HCPCS: 64493; 64494 ×2; J3010; J2795; 99152

== ENCOUNTER → 2024-03-31 | Outpatient (CLI) | payer MEDICARE ==
[2024-03-31 14:25] VITALS: BP 110/52; PULSE 68; RESP 14
--- NOTE | 2024-03-31 15:23 | P.PAINPG ---
PQRS Measure Charge Sheet Comment: HISTORY OF PRESENT ILLNESS: A 73 yr old female w son & female at side presents today w severe and chronic LBP > 2 yrs secondary to radiculopathy, spondylosis and facet arthropathy without myelopathy for evaluation s/p BL MBB L4-L5, L5-S1 #1. Pt states she experienced 100 % pain relief x 72 hrs s/p procedure. Pt states pain level is provoked at 5-6 /10 in intensity, intermittent, localized in the lower lumbar spine, predominantly axial, achy in character without shooting pain . Pain is provoked by standing/ walking for periods > 20 min. Pain is alleviated by PT x 10 wks which she is currently in, physician guided home stretches daily since Summer 2023, heat, ice, medications, use of a wheelchair for ambulatory assistance, repositioning and rest . Interventional procedures include BL MBB L3-L5 x1 Medications include Tramadol, Lyrica, Robaxin, Mobic, Lidoderm, Tyl REVIEW OF ORGAN SYSTEMS: CONSTITUTIONAL: No fevers or chills. No recent weight loss. NEUROLOGICAL: + numbness and tingling along the distal extremities. No seizure disorders or headaches. MUSCULOSKELETAL: + pain PSYCHIATRIC: Denies current depression or suicidal thoughts. Physical Examinations : Constitutional : Cooperative , not in acute distress . Neurologic : Cranial nerve II to XII intact. No focal neurological deficits. Psychiatric : alert & oriented x 3. Matching mood & appropriate affect. Judgment & insight intact. Musculoskeletal : Cervical Spine Motor strength in the deltoid and biceps: Normal right side. Normal Left side Motor strength biceps and the wrist extensors: Normal right side . Normal left side Motor strength in the triceps muscle: Normal right side. Normal left side Deep tendon reflexes: Normal at the biceps. Normal at Brachioradialis. Normal at triceps Vertebral body tenderness to deep palpation over Cervical facet loading test: positive bilaterally Spurling test: positive bilaterally Neck distraction test: positive bilaterally Nguyen sign: positive bilaterally Lumbar spine Motor strength lower extremities ,thigh and legs 5/5 Right side , 5/5 Left side Deep tendon reflexes : Normal Knee Jerk. Normal Ankle Jerk Vertebral body tenderness over Howell Test positive Lumbar facet Loading Test: positive Right / positive Left L4-L5, L5-S1 Range of motion of the lumbar spine Flexion 30 degrees, extension 10 degrees Straight Leg Raise test: Left/ Right positive at degrees Jessica test: positive right / positive left. Severe tenderness over the Sacroiliac joint on the Right / Left sides Gaenslen test: positive bilaterally Seated flexion test: positive bilaterally. Sacral spine : Severe tenderness over the Sacroiliac joint: right side / left side Range of motion: Flexion of the lumbar spine <60 degrees Range of motion: Extension of the lumbar spine <20 degrees Gaenslen's Test positive Jessica test: positive right side / left side Thigh Thrust Test Sacral Thrust Test Imaging: CT non contrast lumbar spine from 10/24/23 reviewed Assessment/ Plan : L4, L5 grade I anterolisthesis, Recommendation of BL MBB L4-L5, L5-S1 #2. Risks, benefits of procedure discussed and patient verbalized understanding. Admits to anti- coagulant use or medical history of diabetes. Protocol for discontinuation/ continuation of medications leslee procedure discussed. Minimal anesthesia provided, if clinically indicated, consisting of Versed and Fentanyl. All questions answered. I have spent greater than 30 minutes on patient care today. Dr Kumar was available by phone for the evaluation of this patient. The time was used to review the medical records including relevant urine studies and Prescription history (MAPs), review of the available imaging, evaluation and examination of the patient, coordination of care with the medical staff and if applicable referring physicians, as well as creation of the medical record PQRS Narrative: Smoking Status Former smoker Hx Alcohol Use (MH) No Home Medications: Ambulatory Orders Citalopram Hydrobromide [CeleXA] 20 mg PO HS 03/21/15 Ziprasidone [Geodon] 80 mg PO BID 03/21/15 Atorvastatin [Lipitor] 20 mg PO HS 11/16/15 Carbidopa-Levodopa 25-100 mg [Sinemet 25-100 mg] 3 tab PO QAM 02/01/16 Zonisamide [Zonegran] 200 mg PO HS 11/21/18 cloBAZam [Clobazam] 30 mg PO 1500 07/21/19 Acetaminophen Tab [Tylenol] 650 mg PO Q6HR PRN tab 07/23/19 Carbidopa-Levodopa 25-100 mg [Sinemet 25-100] 2 each PO 1500 05/03/23 Pregabalin 100 mg PO 1500 05/03/23 Vit C/E/Zn/Coppr/Lutein/Zeaxan [Preservision Areds 2 Softgel] 1 each PO BID 05/03/23 lamoTRIgine 200 mg PO TID 05/03/23 Carbidopa-Levodopa 25-100 mg [Sinemet 25-100] 2 each PO HS 05/10/23 LORazepam [Ativan] 1 mg PO DAILY PRN 05/10/23 Lidocaine 5% Patch [Lidoderm 5% Patch] 1 patch TOPICAL DAILY PRN #30 patch 12/19/23 Stool Softener 3 dose PO 1500 01/01/24 methocarbamoL 750 mg PO ONCE PRN 03/11/24 traMADol HCl [Ultram] 50 mg PO Q4HR PRN 03/11/24 Controlled Substance Measures - Controlled Substance Measures Is patient prescribed a controlled substance at discharge?: No
== END ==
LOC: PNWHC3 13:41
PROVIDERS: ATTEND Specialist
DX: M43.16 Spondylolisthesis, lumbar region (principal); Z87.891 Personal history of nicotine dependence
CPT/HCPCS: 99212

== ENCOUNTER → 2024-04-28 | Outpatient (CLI) | payer MEDICARE ==
[2024-04-28 14:45] VITALS: BP 143/82; PULSE 83; RESP 16; TEMP 96.8
--- NOTE | 2024-04-28 15:35 | P.PAINPG ---
PQRS Measure Charge Sheet Comment: HISTORY OF PRESENT ILLNESS: A 73 yr old female w son at side presents today w severe and chronic LBP > 2 yrs secondary to radiculopathy, spondylosis and facet arthropathy without myelopathy for evaluation s/p BL MBB L4-L5, L5-S1 #2. Pt states she experienced 95 % pain relief x 4 days s/p procedure. Pt states pain level is provoked at 4-6 /10 in intensity, intermittent, localized in the lower lumbar spine, predominantly axial, achy in character without shooting pain . Pain is provoked by standing/ walking for periods > 20 min. Pain is alleviated by PT x 10 wks which she is currently in, physician guided home stretches daily since Summer 2023, heat, ice, medications, use of a wheelchair for ambulatory assistance, repositioning and rest . Interventional procedures include BL MBB L3-L5 x2 Medications include Tramadol, Lyrica, Robaxin, Mobic, Lidoderm, Tyl REVIEW OF ORGAN SYSTEMS: CONSTITUTIONAL: No fevers or chills. No recent weight loss. NEUROLOGICAL: + numbness and tingling along the distal extremities. No seizure disorders or headaches. MUSCULOSKELETAL: + pain PSYCHIATRIC: Denies current depression or suicidal thoughts. Physical Examinations : Constitutional : Cooperative , not in acute distress . Neurologic : Cranial nerve II to XII intact. No focal neurological deficits. Psychiatric : alert & oriented x 3. Matching mood & appropriate affect. Judgment & insight intact. Musculoskeletal : Cervical Spine Motor strength in the deltoid and biceps: Normal right side. Normal Left side Motor strength biceps and the wrist extensors: Normal right side . Normal left side Motor strength in the triceps muscle: Normal right side. Normal left side Deep tendon reflexes: Normal at the biceps. Normal at Brachioradialis. Normal at triceps Vertebral body tenderness to deep palpation over Cervical facet loading test: positive bilaterally Spurling test: positive bilaterally Neck distraction test: positive bilaterally Nguyen sign: positive bilaterally Lumbar spine Motor strength lower extremities ,thigh and legs 5/5 Right side , 5/5 Left side Deep tendon reflexes : Normal Knee Jerk. Normal Ankle Jerk Vertebral body tenderness over Howell Test positive Lumbar facet Loading Test: positive Right / positive Left L4-L5, L5-S1 Range of motion of the lumbar spine Flexion 30 degrees, extension 10 degrees Straight Leg Raise test: Left/ Right positive at degrees Jessica test: positive right / positive left. Severe tenderness over the Sacroiliac joint on the Right / Left sides Gaenslen test: positive bilaterally Seated flexion test: positive bilaterally. Sacral spine : Severe tenderness over the Sacroiliac joint: right side / left side Range of motion: Flexion of the lumbar spine <60 degrees Range of motion: Extension of the lumbar spine <20 degrees Gaenslen's Test positive Jessica test: positive right side / left side Thigh Thrust Test Sacral Thrust Test Imaging: CT non contrast lumbar spine from 10/24/23 reviewed Assessment/ Plan : L4, L5 grade I anterolisthesis, Recommendation of BL RFA L4-L5, L5-S1. Risks, benefits of procedure discussed and patient verbalized understanding. Admits to anti- coagulant use or medical history of diabetes. Protocol for discontinuation/ continuation of medications leslee procedure discussed. Minimal anesthesia provided, if clinically indicated, consisting of Versed and Fentanyl. All questions answered. I have spent greater than 30 minutes on patient care today. Dr Kumar was available by phone for the evaluation of this patient. The time was used to rev iew the medical records including relevant urine studies and Prescription history (MAPs), review of the available imaging, evaluation and examination of the patient, coordination of care with the medical staff and if applicable referring physicians, as well as creation of the medical record PQRS Narrative: Smoking Status Former smoker Hx Alcohol Use (MH) No Home Medications: Ambulatory Orders Citalopram Hydrobromide [CeleXA] 20 mg PO HS 03/21/15 Ziprasidone [Geodon] 80 mg PO BID 03/21/15 Atorvastatin [Lipitor] 20 mg PO HS 11/16/15 Carbidopa-Levodopa 25-100 mg [Sinemet 25-100 mg] 3 tab PO QAM 02/01/16 Zonisamide [Zonegran] 200 mg PO HS 11/21/18 cloBAZam [Clobazam] 30 mg PO 1500 07/21/19 Acetaminophen Tab [Tylenol] 650 mg PO Q6HR PRN tab 07/23/19 Carbidopa-Levodopa 25-100 mg [Sinemet 25-100] 2 each PO 1500 05/03/23 Pregabalin 100 mg PO 1500 05/03/23 Vit C/E/Zn/Coppr/Lutein/Zeaxan [Preservision Areds 2 Softgel] 1 each PO BID 05/03/23 lamoTRIgine 200 mg PO TID 05/03/23 Carbidopa-Levodopa 25-100 mg [Sinemet 25-100] 2 each PO HS 05/10/23 LORazepam [Ativan] 1 mg PO DAILY PRN 05/10/23 Lidocaine 5% Patch [Lidoderm 5% Patch] 1 patch TOPICAL DAILY PRN #30 patch 12/19/23 Stool Softener 3 dose PO 1500 01/01/24 methocarbamoL 750 mg PO ONCE PRN 03/11/24 traMADol HCl [Ultram] 50 mg PO Q4HR PRN 03/11/24 Controlled Substance Measures - Controlled Substance Measures Is patient prescribed a controlled substance at discharge?: No
== END ==
LOC: PNWHC3 13:37
PROVIDERS: ATTEND Specialist
DX: M47.816 Spondylosis without myelopathy or radiculopathy, lumbar region (principal); M43.16 Spondylolisthesis, lumbar region; Z87.891 Personal history of nicotine dependence
CPT/HCPCS: 99212

== ENCOUNTER 2024-05-16 11:13 | Day surgery (SDC) | payer MEDICARE, OTHER ==
[2024-05-15 09:36] VITALS: BMI 25.0
[2024-05-16 11:42] VITALS: TEMP 97.8
[2024-05-16] MEDS: IV FLUID CONTINUATION 1,000 ML IV ONE (11:49)
[2024-05-16] MEDS: LACTATED RINGERS 1,000 ML IV SCH (11:50)
[2024-05-16] MEDS ORDERED: ROPIVACAINE 5MG/ML 20ML VIAL ONE (12:08)
[2024-05-16] MEDS ORDERED: fentaNYL (PF) 50 MCG/ML 2 ML AMP ONE (12:08)
--- NOTE | 2024-05-16 12:49 | P.PCN ---
Description of Procedure: Preprocedure diagnosis. 1. Lumbar spondylosis with facet joint arthropathy without myelopathy. 2. Lumbar degenerative disc disease. Procedure diagnosis. 1. Lumbar spondylosis with facet joint arthropathy without myelopathy. Space 2. Lumbar degenerative disc disease. Procedure.Bilateral radiofrequency thermocoagulation L3, L4 and L5 medial branch, with fluoroscopic guidance (fluoroscopy images are available in the radiology department) (to Denervate the facet joint at bilateral L4- 5 and L5-S1 levels) Anesthesia. Moderate sedation with intravenous fentanyl 100 g and local infiltration with Lidocaine. Continuous pulse OX,BP,EKG and verbal communication was maintained with patient. Time. Start 1208. [id number] . EBL minimal. Procedure indication. The patient with low back pain secondary to lumbar facet arthropathy who he had more than 50% relief of her pain with previous diagnostic lumbar medial branch block with local anesthetics.The patient was seen and identified in the preoperative area. Risks: Benefits, complications, including but not limited to risk of infection, bleeding, ALLERGIC reaction to the medications and no complete pain relief and alternatives were discussed with the patient, the patient admitted to proceed with the procedure and signed the consent. Procedure description/technique. Patient was taken to the OR and timeout was completed. The patient was placed in prone position on the procedure table. The lumbar area was prepped and draped in the usual sterile fashion. After injecting 5 ml of 1% Lidocaine subcutaneously,using AP and then oblique, lateral view of fluoroscopy, 18-gauge 100 mm radiofrequency cannula with a 10 mm active tip was advanced and guided by fluoroscopy at the junction of supirior articular process with RIGHT ala of the sacrum, transverse process of L4&L5. Each site then underwent positive sensory testing with 50 Hz and 0-1 V and negative motor testing at 2.5 Hz and 0-3 V with local stimulation but no radicular symptoms down the leg. Thereafter each sites underwent radiofrequency thermocoagulation at 80C for 90 seconds after injecting 1 mL of preservative- free 0.5% ropivacaine. Repeat radiofrequency ablation was done at each points after rotating the needle 180 with same setting. This same procedure was repeated twice on the LEFT side at the junction of superior articular process with ala of sacrum,transverse process of L4, L5 with the same settings after positive sensory,negative motor stimulation and infiltration of 1.0 ml 5% Ropivacaine at each site . RF needles were taken out. At the end of the procedure the skin was cleansed and Band-Aids were applied. Disposition patient tolerated the procedure well. No complication. She was placed in supine position and transferred to the recovery area in stable condition for observation and was discharged home from recovery room after meeting discharge criteria. Discharge instructions given to the patient by the staff. The patient were examined prior to discharge the patient will schedule a follow-up in the clinic in 2-4 weeks.
[2024-05-16] MEDS: IV FLUID CONTINUATION 800 ML IV ONE (12:50)
--- NOTE | 2024-05-16 12:52 | FL ---
EXAMINATION TYPE: FL guided pain mgmt statistic DATE OF EXAM: 05/16/2024 CLINICAL INDICATION: Female, 73 years old with history of RAD FREQ LUM DENISA; PHH, pain TECHNIQUE: Fluoroscopy. COMPARISON: None. FINDINGS: Fluoroscopic guidance was provided during pain relief procedure performed by Dr. Herron . A total of 68.1 seconds of fluoroscopic time was utilized during the procedure and signed images was acquired. Image acquired shows needle localization multiple levels in the lumbar spine. Degeneration changes of the visualized joints. Total DAP: 0.54932 mGym2. IMPRESSION: As Above. [facility], , 05/16/2024 12:50 PM
[2024-05-16 12:53] VITALS: RESP 16
[2024-05-16 13:08] VITALS: BP 154/78; PULSE 75
== END 2024-05-16 13:28 | disposition home or self-care (01) ==
LOC: ORPAIN 11:13
PROVIDERS: ATTEND Pain Medicine Interventional Pain Medicine
DX: M47.816 Spondylosis without myelopathy or radiculopathy, lumbar region (principal); M51.369 Other intervertebral disc degeneration, lumbar region without mention of lumbar back pain or lower extremity pain
CPT/HCPCS: 64635; 64636; J3010; J2795; 99152; 99153

== ENCOUNTER 2024-06-04 12:45 | Emergency (ER) | payer MEDICARE, OTHER ==
[2024-06-04 14:31] LABS: Basophils # (A) 0.1 k/uL (0-0.2); Basophils % (A) 1 %; Eosinophils # (A) 0.1 k/uL (0-0.7); Eosinophils % (A) 2 %; HCT 48.9 % (34.0-46.0); HGB 15.3 gm/dL (11.4-16.0); Lymphocytes # (A) 2.4 k/uL (1.0-4.8); Lymphocytes % (A) 30 %; MCH 30.4 pg (25.0-35.0); MCHC 31.2 g/dL (31.0-37.0); MCV 97.3 fL (80.0-100.0); Mean Platelet Volume 8.4; Monocytes # (A) 0.5 k/uL (0-1.0); Monocytes % (A) 6 %; Neutrophils # (A) 4.6 k/uL (1.3-7.7); Neutrophils % (A) 59 %; Platelet Count 242 k/uL (150-450); RBC 5.03 m/uL (3.80-5.40); RDW 13.5 % (11.5-15.5); WBC 7.7 k/uL (3.8-10.6)
--- NOTE | 2024-06-04 14:36 | ED ---
General Adult HPI - General Chief complaint: Back Pain/Injury Stated complaint: R rib pain, back pain Time Seen by Provider: 06/04/24 13:00 Source: patient Mode of arrival: ambulatory Limitations: no limitations - History of Present Illness Initial comments: 73-year-old female past medical history of chronic back pain who presents to the emergency department with right-sided rib pain. Family is at bedside and helps provide the history. States that the patient had a rhizotomy done on May 16 for right-sided flank pain. States that since the procedure the patient has now had pain more superior to the area which was previously affected. The pain is worse with bending and movement and goes away when the patient rests. She denies any shortness of breath or chest pain. She went into an urgent care today for her symptoms and they directed her she had to come to the hospital for further evaluation. They are concerned the patient may have "internal injuries" as this is what she was told from the urgent care. She denies any nausea or vomiting. No back pain. No numbness, tingling or weakness in her extremities. No changes in her bowel or bladder habits. No other alleviating, precipitating modifying factors - Related Data Home Medications Medication Instructions Recorded Confirmed Citalopram Hydrobromide [CeleXA] 20 mg PO HS 03/21/15 05/16/24 Ziprasidone [Geodon] 80 mg PO BID 03/21/15 05/16/24 Atorvastatin [Lipitor] 20 mg PO HS 11/16/15 05/16/24 Carbidopa-Levodopa 25-100 mg 3 tab PO QAM 02/01/16 05/16/24 [Sinemet 25-100 mg] Zonisamide [Zonegran] 200 mg PO HS 11/21/18 05/16/24 cloBAZam [Clobazam] 30 mg PO 1500 07/21/19 05/16/24 Carbidopa-Levodopa 25-100 mg 2 each PO 1500 05/03/23 05/16/24 [Sinemet 25-100] Pregabalin 100 mg PO 1500 05/03/23 05/16/24 Vit C/E/Zn/Coppr/Lutein/Zeaxan 1 each PO BID 05/03/23 05/16/24 [Preservision Areds 2 Softgel] lamoTRIgine 200 mg PO TID 05/03/23 05/16/24 Carbidopa-Levodopa 25-100 mg 2 each PO HS 05/10/23 05/16/24 [Sinemet 25-100] LORazepam [Ativan] 1 mg PO DAILY PRN 05/10/23 05/16/24 Stool Softener 3 dose PO 1500 01/01/24 05/16/24 methocarbamoL 750 mg PO ONCE PRN 03/11/24 05/16/24 traMADol HCl [Ultram] 50 mg PO Q4HR PRN 03/11/24 05/16/24 Previous Rx's Medication Instructions Recorded Acetaminophen Tab [Tylenol] 650 mg PO Q6HR PRN tab 07/23/19 Lidocaine 5% Patch [Lidoderm 5% 1 patch TOPICAL DAILY PRN #30 patch 12/19/23 Patch] Allergies Allergy/AdvReac Type Severity Reaction Status Date / Time No Known Allergies Allergy Verified 06/04/24 12:51 Review of Systems ROS Statement: Those systems with pertinent positive or pertinent negative responses have been documented in the HPI. ROS Other: All systems not noted in ROS Statement are negative. 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 LAST SEIZURE 1 month ago approx., has fallen w/seizures in past, balance problems, USES [employer] WITH WHEELS, WEAKNESS LEFT SIDE. STATES NO MRI'S DUE TO VAGUS NERVE STIMULATOR IMPLANT. Neuropathy in feet, meningitis in 1988. History of Any Multi-Drug Resistant Organisms: None Reported Past Surgical History: Joint Replacement, Orthopedic Surgery Additional Past Surgical History / Comment(s): VAGUS NERVE STIMULATOR LEFT CHEST (BATTERY ), LEFT HIPPOCAMPUS REMOVED, ORIF left ankle, right shoulder hemiarthroplasty 2019, right knee replacement May 2023. PAIN CLINIC PROCEDURES Past Anesthesia/Blood Transfusion Reactions: No Reported Reaction Additional Past Anesthesia/Blood Transfusion Reaction / Comment(s): HX OF BLOOD TRANSFUSION - NO REACTION, difficult IV start with last knee replacement surgery. Past Psychological History: Anxiety, Depression, Schizoaffective Disorder Smoking Status: Former smoker Past Alcohol Use History: None Reported Past Drug Use History: None Reported - Past Family History Mother Family Medical History: Cancer Father Family Medical History: Cancer General Exam Limitations: no limitations Course Vital Signs 06/04/24 06/04/24 06/04/24 12:48 15:36 17:48 Temperature 97.7 F 97.9 F 98.1 F Pulse Rate 59 L 68 69 Respiratory 18 20 20 Rate Blood Pressure 98/52 148/89 136/88 O2 Sat by Pulse 95 95 98 Oximetry Medical Decision Making - Medical Decision Making Was pt. sent in by a medical professional or institution (, PA, PROPOSAL MANAGER, urgent care, hospital, or residential...) When possible be specific @ -Urgent care Did you speak to anyone other than the patient for history (EMS, parent, family, police, friend...)? What history was obtained from this source @ -Spoke with patient's son for history Did you review nursing and triage notes (agree or disagree)? Why? @ -I reviewed and agree with nursing and triage notes Were old charts reviewed (outside hosp., previous admission, EMS record, old EKG, old radiological studies, urgent care reports/EKG's, residential records)? Report findings @ -I reviewed the procedure note from May 16 when patient had a rhizotomy Differential Diagnosis (chest pain, altered mental status, abdominal pain women, abdominal pain men, vaginal bleeding, weakness, fever, dyspnea, syncope, headache, dizziness, GI bleed, back pain, seizure, CVA, palpatations, mental health, musculoskeletal)? @ -Differential Back Pain: Strain, zoster, cauda equina syndrome, epidural abscess, vertebral osteomyelitis, discitis, fracture, subluxation, disc herniation, DJD, spinal stenosis, dissection, AAA, pancreatitis, peptic ulcer disease, pyelonephritis, kidney stone, this is not meant to be an all-inclusive list. EKG interpreted by me (3pts min.). @ -Not done X-rays interpreted by me (1pt min.). @ -None done CT interpreted by me (1pt min.). @ -Yes and demonstrates a pleural-based nodule over the site of the the patient is having pain U/S interpreted by me (1pt. min.). @ -None done What testing was considered but not performed or refused? (CT, X-rays, U/S, labs)? Why? @ -None What meds were considered but not given or refused? Why? @ -Pain medications are considered however patient refused Did you discuss the management of the patient with other professionals (professionals i.e. , PA, PROPOSAL MANAGER, lab, RT, psych nurse, protective services social worker, battery filler, teacher, tax compliance officer, comp field case manager)? Give summary @ -No Was smoking cessation discussed for >3mins.? @ -No Was critical care preformed (if so, how long)? @ -No Were there social determinants of health that impacted care today? How? (Homelessness, low income, unemployed, alcoholism, drug addiction, transportation, low edu. Level, literacy, decrease access to med. care, retirement, rehab)? @ -No Was there de-escalation of care discussed even if they declined (Discuss DNR or withdrawal of care, Hospice)? DNR status @ -No What co-morbidities impacted this encounter? (DM, HTN, Smoking, COPD, CAD, Cancer, CVA, ARF, Chemo, Hep., AIDS, mental health diagnosis, sleep apnea, morbid obesity)? @ -Chronic back pain Was patient admitted / discharged? Hospital course, mention meds given and rout e, prescriptions, significant lab abnormalities, going to OR and other pertinent info. @ -Upon arrival patient seen and evaluated in room 32. Thorough history and physical exam was performed. I did offer the patient something for pain control however she refused. I did discuss imaging options. Patient will have laboratory studies conducted as well as a CT exam to look for etiologies of her right flank pain. CT was performed which demonstrates a pleural-based nodule at the site of for the patient is having pain. I did discuss diagnosis, differential and treatment options. At this time the patient will be discharged home and needs to follow-up with pulmonology for further evaluation of this nodule. Instructed to follow-up with her surgeon for further management of her pain return for any new or worsening symptoms. Patient agreeable plan was discharged in stable condition Undiagnosed new problem with uncertain prognosis? @ -yes Drug Therapy requiring intensive monitoring for toxicity (Heparin, Nitro, Insulin, Cardizem)? @ -No Were any procedures done? @ -No Diagnosis/symptom? @ -Acute right-sided flank pain, pleural-based nodule, status post rhizotomy May 16 Acute, or Chronic, or Acute on Chronic? @ -Acute Uncomplicated (without systemic symptoms) or Complicated (systemic symptoms)? @ -Complicated Side effects of treatment? @ -No Exacerbation, Progression, or Severe Exacerbation? @ -No Poses a threat to life or bodily function? How? (Chest pain, USA, OR, pneumonia, PE, COPD, DKA, ARF, appy, cholecystitis, CVA, Diverticulitis, Homicidal, Suicidal, threat to staff... and all critical care pts) @ -No - Lab Data Result diagrams: 06/04/24 14:13 06/04/24 14:13 Lab Results 06/04/24 06/04/24 Range/Units 14:13 14:13 WBC 7.7 (3.8-10.6) k/uL RBC 5.03 (3.80-5.40) m/uL Hgb 15.3 (11.4-16.0) gm/dL Hct 48.9 H (34.0-46.0) % MCV 97.3 (80.0-100.0) fL MCH 30.4 (25.0-35.0) pg MCHC 31.2 (31.0-37.0) g/dL RDW 13.5 (11.5-15.5) % Plt Count 242 (150-450) k/uL MPV 8.4 Neutrophils % 59 % Lymphocytes % 30 % Monocytes % 6 % Eosinophils % 2 % Basophils % 1 % Neutrophils # 4.6 (1.3-7.7) k/uL Lymphocytes # 2.4 (1.0-4.8) k/uL Monocytes # 0.5 (0-1.0) k/uL Eosinophils # 0.1 (0-0.7) k/uL Basophils # 0.1 (0-0.2) k/uL Sodium 138 (137-145) mmol/L Potassium 4.9 (3.5-5.1) mmol/L Chloride 100 (98-107) mmol/L Carbon Dioxide 28 (22-30) mmol/L Anion Gap 10 mmol/L BUN 11 (7-17) mg/dL Creatinine 0.70 (0.52-1.04) mg/dL Est GFR (CKD-EPI)AfAm >90 (>60 ml/min/1.73 sqM) Est GFR (CKD-EPI)NonAf 86 (>60 ml/min/1.73 sqM) Glucose 113 H (74-99) mg/dL Calcium 9.3 (8.4-10.2) mg/dL Total Bilirubin 0.6 (0.2-1.3) mg/dL AST 27 (14-36) U/L ALT 7 (4-34) U/L Alkaline Phosphatase 70 (38-126) U/L Total Protein 8.0 (6.3-8.2) g/dL Albumin 4.6 (3.5-5.0) g/dL Lipase 272 (23-300) U/L Disposition Clinical Impression: Pleural mass Disposition: HOME SELF-CARE Condition: Stable Instructions (If sedation given, give patient instructions): Pulmonary Nodules (ED) Additional Instructions: You have a mass on your lung that needs to be evaluated by the lung doctor. Please call to make an appointment. Return to the emergency room for any new or worsening symptoms Is patient prescribed a controlled substance at d/c from ED?: No Referrals: Javier Looney MD [Primary Care Provider] - 1-2 days Phillip Forrest MD [STAFF PHYSICIAN] - 1-2 days Time of Disposition: 16:30
[2024-06-04 14:47] LABS: ALT 7 U/L (4-34); AST 27 U/L (14-36); African American GFR (CKD) >90 (>60 ml/min/1.73 sqM); Albumin 4.6 g/dL (3.5-5.0); Alkaline Phosphatase 70 U/L (38-126); Anion Gap 10 mmol/L; Blood Urea Nitrogen 11 mg/dL (7-17); Calcium 9.3 mg/dL (8.4-10.2); Carbon Dioxide 28 mmol/L (22-30); Chloride 100 mmol/L (98-107); Glucose 113 mg/dL (74-99); Lipase 272 U/L (23-300); Non-African American GFR(CKD) 86 (>60 ml/min/1.73 sqM); Potassium 4.9 mmol/L (3.5-5.1); Sodium 138 mmol/L (137-145); Total Bilirubin 0.6 mg/dL (0.2-1.3)
--- NOTE | 2024-06-04 15:02 | CT ---
EXAMINATION TYPE: CT abdomen pelvis wo con DATE OF EXAM: 06/04/2024 COMPARISON: CT pelvis dated 12/19/2023 CLINICAL INDICATION: Female, 73 years old with history of ruq pain, recent rhizotomy; PHH, ruq pain, recent rhizotomy TECHNIQUE: CT scan of the abdomen and pelvis is performed without oral or IV contrast. CT DLP: 454.[address] CTDI: mGy Automated exposure control for dose reduction was used. Findings: There is a 2.2 cm pleural-based mass in the right lower lobe. There is adjacent mild interstitial fib rosis or scarring. The left lung is clear. Gallbladder is normal and there is no gallstone, wall thickening, pericholecystic fluid or distention . There is no biliary ductal dilatation. There is no organomegaly of the liver, pancreas, spleen or adrenal glands. There are no renal calcifications or hydronephrosis. There is a 2.8 cm parapelvic cyst of the left ki dney. The caliber of the abdominal aorta is normal and there is no retroperitoneal adenopathy or hemorrhage . The bowel loops are normal in caliber is no evidence of obstruction. No inflammatory changes are iden tified in the mesentery and there is no free intraperitoneal air or fluid. There is moderate to marke d diverticulosis without CT evidence of diverticulitis. There is a large stool burden throughout the colon and rectum. There is no pelvic mass, free fluid, abscess or adenopathy. There are calcified uterine fibroids with the uterus is not grossly enlarged. The osseous structures and soft tissues are unremarkable. IMPRESSION: 1. 2.2 cm pleural-based mass in the right lower lobe with adjacent mild interstitial scarring or fibr osis. Neoplasm cannot be excluded. CT of the thorax is recommended to evaluate the lung parenchyma in its entirety. 2. Diverticulosis without CT evidence of acute diverticulitis. 3. large stool burden throughout the colon and rectum but no bowel obstruction or inflammation. 4. Calcified uterine fibroid. [facility], , 06/04/2024 2:59 PM
[2024-06-04 15:39] VITALS: RESP 20
[2024-06-04 17:50] VITALS: BP 136/88; PULSE 69; TEMP 98.1
== END 2024-06-04 16:36 | disposition home or self-care (01) ==
LOC: EC 12:45
DX: J94.9 Pleural condition, unspecified (principal); R10.9 Unspecified abdominal pain; M54.9 Dorsalgia, unspecified; G89.29 Other chronic pain; Z98.890 Other specified postprocedural states; Z87.891 Personal history of nicotine dependence
CPT/HCPCS: 36415; 74176; 80053; 83690; 85025; 99284

== ENCOUNTER → 2024-06-23 | Outpatient (CLI) | payer MEDICARE ==
[2024-06-23 18:31] LABS: Basophils # (A) 0.06 X 10*3/uL (0.00-0.10); Basophils % (A) 0.8 %; Eosinophils # (A) 0.11 X 10*3/uL (0.04-0.35); Eosinophils % (A) 1.4 %; HCT 46.7 % (37.2-46.3); HGB 14.6 g/dL (12.0-15.0); Lymphocytes # (A) 2.64 X 10*3/uL (0.90-5.00); Lymphocytes % (A) 34.6 %; MCH 30.9 pg (27.0-32.0); MCHC 31.3 g/dL (32.0-37.0); MCV 98.9 FL (80.0-97.0); Mean Platelet Volume 10.8 FL (9.5-12.2); Monocytes # (A) 0.62 X 10*3/uL (0.20-1.00); Monocytes % (A) 8.1 %; NRBC Per 100 WBC 0 X 10*3/uL (0.00-0.01); Neutrophils # (A) 4.19 X 10*3/uL (1.80-7.70); Neutrophils % (A) 54.8 %; Platelet Count 245 X 10*3/uL (140-440); RBC 4.72 X 10*6/uL (4.10-5.20); RDW 13.2 % (11.5-14.5); WBC 7.64 X 10*3/uL (4.50-10.00)
[2024-06-23 22:05] LABS: Magnesium 1.9 mg/dL (1.5-2.4)
[2024-06-23 22:08] LABS: ALT 10 U/L (8-44); AST 24 U/L (13-35); Albumin 4.6 g/dL (3.8-4.9); Albumin/Globulin Ratio 1.39 Ratio (1.60-3.17); Alkaline Phosphatase 93 U/L (41-126); Blood Urea Nitrogen 9.6 mg/dL (9.0-27.0); Calcium 9.4 mg/dL (8.7-10.3); Carbon Dioxide 22.8 mmol/L (21.6-31.8); Chloride 99 mmol/L (96-109); Globulin 3.3 g/dL (1.6-3.3); Glucose 89 mg/dL (70-110); Potassium 4.5 mmol/L (3.5-5.5); Sodium 136 mmol/L (135-145); Total Bilirubin 0.2 mg/dL (0.3-1.2); Total Protein 7.9 g/dL (6.2-8.2)
== END | disposition home or self-care (01) ==
LOC: LABWHC1 13:41
PROVIDERS: ATTEND Pain Medicine Interventional Pain Medicine
DX: E55.9 Vitamin D deficiency, unspecified (principal); F25.1 Schizoaffective disorder, depressive type; S22.080A Wedge compression fracture of T11-T12 vertebra, initial encounter for closed fracture; S32.010A Wedge compression fracture of first lumbar vertebra, initial encounter for closed fracture; G40.909 Epilepsy, unspecified, not intractable, without status epilepticus; G89.29 Other chronic pain; G20.A2 Parkinson's disease without dyskinesia, with fluctuations; M54.9 Dorsalgia, unspecified; M81.0 Age-related osteoporosis without current pathological fracture; K21.9 Gastro-esophageal reflux disease without esophagitis; K59.00 Constipation, unspecified; Z98.1 Arthrodesis status
CPT/HCPCS: 36415; 80053; 82306; 83735; 83970; 85025

== ENCOUNTER → 2024-07-31 | Outpatient (CLI) | payer MEDICARE, OTHER ==
[~2024-07-31] MED LIST changes: -HYDROmorphone 0.5 MG/0.5 ML SYRINGE IVP PRN; -MIDAZOLAM 2 MG/2 ML VIAL IV PRN; +SODIUM CHLORIDE 0.9% 250 ML in EMPTY BAG 1 BAG IV PRN; -TRANEXAMIC 1,000 MG/100ML-NACL 1,000 MG in SALINE 1 100ML.BAG IVPB PRN
[2024-07-31 13:26] VITALS: BP 118/71; PULSE 73; RESP 16; TEMP 97.6
[2024-07-31] MEDS: ZOLEDRONIC ACID 5 MG in SODIUM CHLORIDE 0.9% 100 ML IV NR (13:53)
[2024-07-31] MEDS: SODIUM CHLORIDE 0.9% 500 ML 500 ML in EMPTY BAG 1 BAG IV PRN (13:54)
== END ==
LOC: PROCWHC3 13:04
PROVIDERS: ATTEND Family Medicine
DX: M81.0 Age-related osteoporosis without current pathological fracture (principal)
CPT/HCPCS: 96365; J3489